=== PATIENT | female | born 1955 | race Caucasian/White ===

== ENCOUNTER 2021-02-14 09:28 | Day surgery (SDC) | payer MEDICARE ==
[2021-02-12 15:45] VITALS: BMI 31.6
[~2021-02-14 09:28] MED LIST: LACTATED RINGERS 1,000 ML IV SCH; LIDOCAINE 1% (10MG/ML) FOR IV START INTRADERMA PRN
[2021-02-14 10:28] VITALS: TEMP 98.1
[2021-02-14] MEDS ORDERED: PROPOFOL 10 MG/ML 20 ML VIAL IV ONE (11:32)
--- NOTE | 2021-02-14 11:52 | P.PCN ---
Date of Procedure: 02/14/21 Procedure(s) Performed: BRIEF HISTORY: Patient is a 65-year-old pleasant female scheduled for an elective colonoscopy as a part of screening for colorectal neoplasia. PROCEDURE PERFORMED: Colonoscopy snare polypectomy. PREOPERATIVE DIAGNOSIS: Screening for colon cancer. IV sedation per Anesthesia. PROCEDURE: After informed consent was obtained, the patient, was brought into the endoscopy unit. IV sedation was administered by Anesthesia under continuous monitoring. Digital rectal examination was normal. Initially the Olympus CF-160 flexible video colonoscope was then inserted in the rectum, gradually advanced into the cecum without any difficulty. Careful examination was performed as the scope was gradually being withdrawn. Ileocecal valve and the appendiceal orifice were visualized and appeared normal. Prep was excellent. The base of the cecum there was a 1.5 cm polyp removed by snare polypectomy. Mucosa of the cecum, ascending colon, transverse colon appeared normal. In the descending colon there was a 5 mm polyp removed by snare polyp rectum he. Rest of the, descending colon, sigmoid colon, and rectum appeared normal. Retroflexion was performed in the rectum and no lesions were seen. The patient tolerated the procedure well. IMPRESSION: 1.5 cm polyp in the base of the cecum status post polypectomy 5 mm descending colon polyp status post snare polypectomy RECOMMENDATIONS: Findings of this examination were discussed with the patient as well as a family. She was advised to follow with the biopsy results. If the biopsy shows an adenoma she can have a repeat colonoscopy in 3 years..
[2021-02-14 11:56] VITALS: RESP 16
[2021-02-14 12:13] VITALS: BP 161/88; PULSE 78
== END 2021-02-14 12:24 | disposition home or self-care (01) ==
LOC: ORWHC2ENDO 09:28
PROVIDERS: ATTEND Internal Medicine Gastroenterology
DX: Z12.11 Encounter for screening for malignant neoplasm of colon (principal); D12.0 Benign neoplasm of cecum; D12.4 Benign neoplasm of descending colon; I10 Essential (primary) hypertension; Z79.899 Other long term (current) drug therapy
CPT/HCPCS: 88305; 45385; J2704

== ENCOUNTER 2021-06-15 20:37 | Inpatient (IN) | payer MEDICARE ==
--- NOTE | 2021-06-15 23:07 | ED ---
Nausea/Vomiting/Diarrhea HPI - General Chief complaint: Nausea/Vomiting/Diarrhea Stated complaint: Fever, Vomiting Time Seen by Provider: 06/15/21 22:43 Source: patient Mode of arrival: ambulatory - History of Present Illness Initial comments: This patient is a 65-year-old woman who presents to be evaluated for nausea vomiting and abdominal pain. The patient had onset of nausea and vomiting proximally 5-6 days ago. She states she has not been tolerating much oral intake. She states that over the past couple of days she has also began having some diffuse abdominal pains. They're crampy and intermittent. She has not noted worsening or relieving factors. Patient also has been having some heartburn that is made worse by the vomiting. No anginal symptoms. MD complaint: nausea, vomiting, diarrhea, abdominal pain Onset/Timin -: days(s) Description of Vomiting: food contents Associated Abdominal Pain: Yes Location: diffuse Radiation: none Severity: mild Quality: cramping Consistency: constant Improves with: none Worsens with: none Associated Symptoms: nausea/vomiting - Related Data Home Medications Medication Instructions Recorded Confirmed Hydrochlorothiazide 12.5 mg PO DAILY 02/12/21 06/15/21 [hydroCHLOROthiazide] atenoloL [Tenormin] 50 mg PO DAILY 02/12/21 06/15/21 Acetaminophen Tab [Tylenol] 1,000 mg PO BID PRN 06/15/21 06/15/21 Acetaminophen Tab [Tylenol] 1,500 mg PO HS PRN 06/15/21 06/15/21 Bismuth Subsalicylate [Kaopectate] 524 mg PO BID PRN 06/15/21 06/15/21 Allergies Allergy/AdvReac Type Severity Reaction Status Date / Time No Known Allergies Allergy Verified 06/15/21 23:46 Review of Systems ROS Statement: Those systems with pertinent positive or pertinent negative responses have been documented in the HPI. ROS Other: All systems not noted in ROS Statement are negative. Constitutional: Denies: fever, chills, weakness Respiratory: Denies: cough, dyspnea Cardiovascular: Denies: chest pain, palpitations, edema Gastrointestinal: Reports: abdominal pain, nausea, vomiting, diarrhea. Denies: constipation, melena, hematochezia Genitourinary: Denies: dysuria, hematuria Musculoskeletal: Denies: back pain Skin: Denies: rash Neurological: Denies: headache, weakness Past Medical History Past Medical History: Hypertension Additional Past Medical History / Comment(s): FREQ DIARRHEA History of Any Multi-Drug Resistant Organisms: None Reported Additional Past Surgical History / Comment(s): NO PRIOR SURGERIES OR PROCEDURES Past Anesthesia/Blood Transfusion Reactions: No Reported Reaction Past Psychological History: No Psychological Hx Reported Smoking Status: Former smoker Past Alcohol Use History: None Reported Past Drug Use History: None Reported - Past Family History Father Family Medical History: Cancer General Exam General appearance: alert, in no apparent distress Head exam: Present: atraumatic, normocephalic Eye exam: Present: normal appearance. Absent: scleral icterus, conjunctival injection ENT exam: Present: normal oropharynx Neck exam: Present: normal inspection Respiratory exam: Present: normal lung sounds bilaterally. Absent: respiratory distress, wheezes, rales, rhonchi, stridor Cardiovascular Exam: Present: regular rate, normal rhythm, normal heart sounds. Absent: systolic murmur, diastolic murmur, rubs, gallop GI/Abdominal exam: Present: soft. Absent: distended, tenderness, guarding, rebound, rigid, mass, pulsatile mass, hernia Extremities exam: Present: normal inspection, normal capillary refill. Absent: pedal edema, calf tenderness Back exam: Present: normal inspection. Absent: CVA tenderness (R), CVA tenderness (L) Neurological exam: Present: alert Skin exam: Present: warm, dry, intact, normal color. Absent: rash Course Vital Signs 06/15/21 06/15/21 21:59 23:13 Temperature 98.1 F 98.0 F Pulse Rate 85 89 Respiratory 20 18 Rate Blood Pressure 135/77 144/82 O2 Sat by Pulse 95 93 L Oximetry Medical Decision Making - Lab Data Result diagrams: 06/15/21 23:29 06/15/21 23:29 Lab Results 06/15/21 06/15/21 06/15/21 Range/Units 22:19 23:29 23:29 WBC 16.9 H (3.8-10.6) k/uL RBC 4.88 (3.80-5.40) m/uL Hgb 15.2 (11.4-16.0) gm/dL Hct 45.1 (34.0-46.0) % MCV 92.6 (80.0-100.0) fL MCH 31.2 (25.0-35.0) pg MCHC 33.8 (31.0-37.0) g/dL RDW 13.5 (11.5-15.5) % Plt Count 294 (150-450) k/uL MPV 8.4 Sodium 120 L (137-145) mmol/L Potassium 3.5 (3.5-5.1) mmol/L Chloride 81 L (98-107) mmol/L Carbon Dioxide 22 (22-30) mmol/L Anion Gap 17 mmol/L BUN 68 H (7-17) mg/dL Creatinine 2.04 H (0.52-1.04) mg/dL Est GFR (CKD-EPI)AfAm 29 (>60 ml/min/1.73 sqM) Est GFR (CKD-EPI)NonAf 25 (>60 ml/min/1.73 sqM) Glucose 125 H (74-99) mg/dL Plasma Lactic Acid Terrence (0.7-2.0) mmol/L Calcium 7.0 L (8.4-10.2) mg/dL Total Bilirubin 0.9 (0.2-1.3) mg/dL AST 43 H (14-36) U/L ALT 35 H (4-34) U/L Alkaline Phosphatase 111 (38-126) U/L Troponin I (0.000-0.034) ng/mL Total Protein 6.3 (6.3-8.2) g/dL Albumin 3.2 L (3.5-5.0) g/dL Amylase 59 (30-110) U/L Lipase 117 (23-300) U/L Coronavirus (PCR) Not Detected (Not Detectd) 06/15/21 06/15/21 Range/Units 23:29 23:29 WBC (3.8-10.6) k/uL RBC (3.80-5.40) m/uL Hgb (11.4-16.0) gm/dL Hct (34.0-46.0) % MCV (80.0-100.0) fL MCH (25.0-35.0) pg MCHC (31.0-37.0) g/dL RDW (11.5-15.5) % Plt Count (150-450) k/uL MPV Sodium (137-145) mmol/L Potassium (3.5-5.1) mmol/L Chloride (98-107) mmol/L Carbon Dioxide (22-30) mmol/L Anion Gap mmol/L BUN (7-17) mg/dL Creatinine (0.52-1.04) mg/dL Est GFR (CKD-EPI)AfAm (>60 ml/min/1.73 sqM) Est GFR (CKD-EPI)NonAf (>60 ml/min/1.73 sqM) Glucose (74-99) mg/dL Plasma Lactic Acid Terrence 1.2 (0.7-2.0) mmol/L Calcium (8.4-10.2) mg/dL Total Bilirubin (0.2-1.3) mg/dL AST (14-36) U/L ALT (4-34) U/L Alkaline Phosphatase (38-126) U/L Troponin I <0.012 (0.000-0.034) ng/mL Total Protein (6.3-8.2) g/dL Albumin (3.5-5.0) g/dL Amylase (30-110) U/L Lipase (23-300) U/L Coronavirus (PCR) (Not Detectd) - EKG Data -: EKG Interpreted by [facility] EKG shows normal: sinus rhythm, intervals (Normal), 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
[2021-06-15] MEDS ORDERED: SODIUM CHLORIDE 0.9% 500 ML 500 ML IV STA (23:12)
[2021-06-15] MEDS ORDERED: ONDANSETRON 4 MG/2 ML VIAL IVP STA (23:12)
[2021-06-15] MEDS ORDERED: FAMOTIDINE 20 MG/2 ML VIAL IV STA (23:12)
[2021-06-16] LABS: HCT 45.1 % (34.0-46.0); HGB 15.2 gm/dL (11.4-16.0); MCH 31.2 pg (25.0-35.0); MCHC 33.8 g/dL (31.0-37.0); MCV 92.6 fL (80.0-100.0); Mean Platelet Volume 8.4; Platelet Count 294 k/uL (150-450); RBC 4.88 m/uL (3.80-5.40); RDW 13.5 % (11.5-15.5); WBC 16.9 k/uL (3.8-10.6)
[2021-06-16 00:13] LABS: Albumin 3.2 g/dL (3.5-5.0); Potassium 3.5 mmol/L (3.5-5.1); Total Bilirubin 0.9 mg/dL (0.2-1.3); Total Protein 6.3 g/dL (6.3-8.2)
[2021-06-16] MEDS ORDERED: MAG HYDROX/AL HYDROX/SIMETH 30 ML, HYOSCYAMINE ELIXIR 10 ML, LIDOCAINE VISCOUS 2% 10 ML PO STA ×3 (00:41)
[2021-06-16] MEDS ORDERED: MORPHINE SULFATE 4 MG/ML SYRINGE IV PRN (00:43)
[2021-06-16] MEDS ORDERED: NALOXONE 0.4 MG/ML 1 ML VIAL IV PRN (00:43)
[2021-06-16] MEDS ORDERED: ONDANSETRON 4 MG/2 ML VIAL IVP PRN (00:43)
[2021-06-16 00:59] LABS: Band Neutrophils % 23 %; Lymphocytes # (M) 1.35 k/uL (1.0-4.8); Monocytes # (M) 1.69 k/uL (0-1.0); Neutrophils % (M) 59 %; Nucleated Red Blood Cells 0 /100 WBC (0-0)
[2021-06-16 01:00] LABS: Total Cells Counted 200; Toxic Granulation Present
[2021-06-16] MEDS: SODIUM CHLORIDE 0.9% 1,000 ML IV SCH ×2 (01:15→08:34)
--- NOTE | 2021-06-16 01:25 | CT ---
EXAMINATION TYPE: CT abdomen pelvis wo con DATE OF EXAM: 06/16/2021 COMPARISON: None HISTORY: diffuse abdominal pain CT DLP: 1065.4 mGycm Automated exposure control for dose reduction was used. Images obtained from the diaphragm to the floor the pelvis without contrast. There is a mild to moderate right pleural effusion. There is infiltrate and atelectasis at both lung bases. Heart size is normal. There is no pericardial effusion. Liver is intact. Gallbladder is distended. Spleen is intact. There is extensive fat stranding around the pancreas. There is also fat stranding around the inferior aspect of the gastric antrum in the ret roperitoneum. There is wall thickening of the proximal duodenum. There is fluid in the left anterior pararenal space. There is no adrenal mass. Kidneys have normal size. There is no hydronephrosis. Ureters are not dilat ed. There is no retroperitoneal adenopathy. Bladder distends smoothly. There is small amount of low-d ensity free fluid in the pelvis. There is no evidence of a pelvic mass. Appendix not seen. No sign of thickened appendix. There is no free air. Lumbar vertebrae have fairly normal alignment. There is multilevel mild degener ative disc changes. Bony pelvis is intact. The hip joints are intact. Sacroiliac joints are intact. IMPRESSION: Extensive retroperitoneal fat stranding consistent with acute pancreatitis. There is duodenal wall th ickening that is probably secondary to the pancreatitis. No dilated ducts. Bilateral pleural effusions and basilar pulmonary infiltrates and atelectasis. Minimal free fluid in the pelvis.
[2021-06-16 03:06] LABS: Appearance,Urine Cloudy (Clear); Bacteria,Urine Rare /hpf; Bilirubin,Urine Negative (Negative); Blood,Urine Trace (Negative); Color,Urine Yellow; Glucose,Urine (UA) Negative (Negative); Ketones,Urine Trace (Negative); Leukocyte Esterase,Urine Negative (Negative); Mucus,Urine Rare /hpf; Nitrite,Urine Negative (Negative); PH, Urine 5.5 (5.0-8.0); Protein,Urine 1+ (Negative); RBC,Urine 3 /hpf (0-5); Specific Gravity,Urine 1.016 (1.001-1.035); Squamous Epithelial Cell,Urine 2 /hpf (0-4); Urobilinogen,Urine <2.0 mg/dL (<2.0); WBC,Urine 4 /hpf (0-5)
[2021-06-16] MEDS ORDERED: FAMOTIDINE 20 MG TAB PO SCH (09:00)
[2021-06-16] MEDS ORDERED: HYDROcodone/APAP 7.5-325MG 1 EACH TAB PO PRN (12:19)
[2021-06-16] MEDS ORDERED: ACETAMINOPHEN TAB 500 MG TAB PO PRN ×2 (12:19)
[2021-06-16 12:23] LABS: African American GFR (CKD) 30 (>60 ml/min/1.73 sqM); Anion Gap 13 mmol/L; Blood Urea Nitrogen 63 mg/dL (7-17); Calcium 6.8 mg/dL (8.4-10.2); Carbon Dioxide 20 mmol/L (22-30); Chloride 88 mmol/L (98-107); Glucose 145 mg/dL (74-99); Non-African American GFR(CKD) 26 (>60 ml/min/1.73 sqM); Potassium 3.2 mmol/L (3.5-5.1); Sodium 121 mmol/L (137-145)
--- NOTE | 2021-06-16 12:29 | P.HPIM ---
History of Present Illness Patient is a pleasant 65-year-old female came in with the moderate to severe bilateral lower abdominal pain which is pressure-like not sharp, along with nausea vomiting going on for about a week patient is found to be severely hypona tremic patient had flulike symptoms with this without any fever. Patient denied any recent antibiotic use patient is found to be severely hyponatremic with serum sodium 120 and patient is on hydrochlorothiazide for hypertension. Patient denied any lightheadedness. Patient presently doesn't have any fever. Patient is tested negative for Covid 19 via PCR. Having diarrhea and nausea still there but bit better. REVIEW OF SYSTEMS: CONSTITUTIONAL: No fever, no malaise, no fatigue. HEENT: No recent visual problems or hearing problems. Denied any sore throat. CARDIOVASCULAR: No chest pain, orthopnea, PND, no palpitations, no syncope. PULMONARY: No shortness of breath, no cough, no hemoptysis. GASTROINTESTINAL: As mentioned in HPI NEUROLOGICAL: No headaches, no weakness, no numbness. HEMATOLOGICAL: Denies any bleeding or petechiae. GENITOURINARY: Denies any burning micturition, frequency, or urgency. MUSCULOSKELETAL/RHEUMATOLOGICAL: Denies any joint pain, swelling, or any muscle pain. ENDOCRINE: Denies any polyuria or polydipsia. The rest of the 14-point review of systems is negative. PHYSICAL EXAMINATION: GENERAL: The patient is alert and oriented x3, not in any acute distress. Well developed, well nourished. HEENT: Pupils are round and equally reacting to light. EOMI. No scleral icterus. No conjunctival pallor. Normocephalic, atraumatic. No pharyngeal erythema. No thyromegaly. CARDIOVASCULAR: S1 and S2 present. No murmurs, rubs, or gallops. PULMONARY: Chest is clear to auscultation, no wheezing or crackles. ABDOMEN: Soft, nontender, nondistended, normoactive bowel sounds. No palpable organomegaly. MUSCULOSKELETAL: No joint swelling or deformity. EXTREMITIES: No cyanosis, clubbing, or pedal edema. NEUROLOGICAL: Gross neurological examination did not reveal any focal deficits. SKIN: No rashes. Assessment and plan -Possible viral gastroenteritis CT findings of retroperitoneal lymph adenopathy is probably secondary to enteritis rather than pericarditis patient's symptomatology is not consistent with pancreatitis pancreatic lipase is not elev ated either. -severe hyponatremia probably secondary to hydrocodone thiazide as well as hypervolemia from nausea vomiting diarrhea, continue with IV fluids. -Hypertension 5 leukocytosis: Secondary to assessment 1 DVT prophylaxis:lovenox Past Medical History Past Medical History: Hypertension Additional Past Medical History / Comment(s): FREQ DIARRHEA History of Any Multi-Drug Resistant Organisms: None Reported Additional Past Surgical History / Comment(s): NO PRIOR SURGERIES OR PROCEDURES Past Anesthesia/Blood Transfusion Reactions: No Reported Reaction Past Psychological History: No Psychological Hx Reported Smoking Status: Former smoker Past Alcohol Use History: None Reported Additional Past Alcohol Use History / Comment(s): QUIT SMOKING 30+ YEARS AGO Past Drug Use History: None Reported - Past Family History Father Family Medical History: Cancer Medications and Allergies Home Medications Medication Instructions Recorded Confirmed Type Hydrochlorothiazide 12.5 mg PO DAILY 02/12/21 06/15/21 History [hydroCHLOROthiazide] atenoloL [Tenormin] 50 mg PO DAILY 02/12/21 06/15/21 History Acetaminophen Tab [Tylenol] 1,000 mg PO BID PRN 06/15/21 06/15/21 History Acetaminophen Tab [Tylenol] 1,500 mg PO HS PRN 06/15/21 06/15/21 History Bismuth Subsalicylate [Kaopectate] 524 mg PO BID PRN 06/15/21 06/15/21 History Allergies Allergy/AdvReac Type Severity Reaction Status Date / Time No Known Allergies Allergy Verified 06/15/21 23:46 Physical Exam Vitals: Vital Signs Temp Pulse Pulse Resp BP BP Pulse Ox 06/16/21 08:20 83 16 06/16/21 08:00 68 120/67 06/16/21 05:07 98.1 F 83 16 123/78 93 L 06/16/21 01:56 98.3 F 82 18 147/82 93 L 06/16/21 01:18 86 18 135/74 94 L 06/15/21 23:13 98.0 F 89 18 144/82 93 L 06/15/21 21:59 98.1 F 85 20 135/77 95 Intake and Output 06/15/21 06/16/21 06/16/21 22:59 06:59 14:59 Other: # Voids 3 Weight 90.718 kg 90.718 kg Results CBC & Chem 7: 06/15/21 23:29 06/16/21 11:30 Labs: Abnormal Lab Results - Last 24 Hours (Table) 06/15/21 06/15/21 06/16/21 Range/Units 23:29 23:29 02:50 WBC 16.9 H (3.8-10.6) k/uL Neutrophils # (Manual) 13.80 H (1.3-7.7) k/uL Monocytes # (Manual) 1.69 H (0-1.0) k/uL Sodium 120 L (137-145) mmol/L Potassium (3.5-5.1) mmol/L Chloride 81 L (98-107) mmol/L Carbon Dioxide (22-30) mmol/L BUN 68 H (7-17) mg/dL Creatinine 2.04 H (0.52-1.04) mg/dL Glucose 125 H (74-99) mg/dL Calcium 7.0 L (8.4-10.2) mg/dL AST 43 H (14-36) U/L ALT 35 H (4-34) U/L Albumin 3.2 L (3.5-5.0) g/dL Urine Appearance Cloudy H (Clear) Urine Protein 1+ H (Negative) Urine Ketones Trace H (Negative) Urine Blood Trace H (Negative) Urine Bacteria Rare H (None) /hpf Urine Mucus Rare H (None) /hpf 06/16/21 Range/Units 11:30 WBC (3.8-10.6) k/uL Neutrophils # (Manual) (1.3-7.7) k/uL Monocytes # (Manual) (0-1.0) k/uL Sodium 121 L (137-145) mmol/L Potassium 3.2 L (3.5-5.1) mmol/L Chloride 88 L (98-107) mmol/L Carbon Dioxide 20 L (22-30) mmol/L BUN 63 H (7-17) mg/dL Creatinine 1.94 H (0.52-1.04) mg/dL Glucose 145 H (74-99) mg/dL Calcium 6.8 L (8.4-10.2) mg/dL AST (14-36) U/L ALT (4-34) U/L Albumin (3.5-5.0) g/dL Urine Appearance (Clear) Urine Protein (Negative) Urine Ketones (Negative) Urine Blood (Negative) Urine Bacteria (None) /hpf Urine Mucus (None) /hpf Thrombosis Risk Factor Assmnt - Choose All That Apply Any of the Below Risk Factors Present?: Yes Each Factor Represents 1 point: Obesity (BMI >25) Each Risk Factor Represents 2 Points: Age 61-74 years Thrombosis Risk Factor Assessment Total Risk Factor Score: 3 Thrombosis Risk Factor Assessment Level: Moderate Risk
--- NOTE | 2021-06-16 13:07 | CONS ---
CONSULTATION REASON FOR CONSULT: Acute kidney injury and hyponatremia. HISTORY OF PRESENT ILLNESS: Patient is a 65-year-old female who was admitted to the hospital with complaints of increased weakness, nausea, vomiting and diarrhea. Patient stated that she noted she had put out less urine as well. She denies any previous history of kidney diseases or low sodium. Patient was noted to have a sodium of 120. Serum creatinine was 2.0. No previous labs available for comparison. Patient has had abdominal pain as well. She states she is feeling slightly better. Coronavirus PCR is negative, blood pressure mostly around 120 to 140 mmHg. Patient denies use of any nonsteroidal anti-inflammatory agents prior to admission. She was maintained on hydrochlorothiazide. PAST MEDICAL HISTORY: Hypertension. PAST SURGICAL HISTORY: No major surgery. SOCIAL HISTORY: Patient is a former smoker, more than 30 years ago. No history of drug abuse. MEDICATIONS: Medications prior to admission: hydrochlorothiazide, Tenormin, Kaopectate. ALLERGIES: NONE. REVIEW OF SYSTEMS: As per HPI. Other systems negative. PHYSICAL EXAMINATION: Patient is comfortable, awake, alert, oriented x3, not in any acute distress. Blood pressure is 120/67, heart rate 68 per minute. She is afebrile. EXAMINATION OF THE HEART: S1 and S2. EXAMINATION OF LUNGS: Bilateral breath sounds are heard. Abdomen is soft. Mild tenderness noted. Examination of lower extremities shows no evidence of edema. CHIEF SUSTAINABILITY OFFICER EXAM: Grossly intact. LABS: Sodium 121, potassium 3.2, chloride 88, BUN 63, creatinine 1.9, hemoglobin 15.2. UA shows 1+ protein; no significant cells noted. Abdominal CT shows suggestion of acute pancreatitis with extensive retroperitoneal fat stranding. Bilateral pleural effusions are noted. Minimal fluid in the pelvis. No hydronephrosis noted on the kidneys. ASSESSMENT: 1. Acute kidney injury, prerenal. Continue with IV hydration. No previous labs available for comparison. Most likely component of ATN also present. UA appears to be quite benign except for 1+ protein. 2. Hyponatremia, mostly hypovolemic. Check urine osmolality. Continue with saline. Repeat sodium later on this evening. 3. Hypokalemia secondary to decreased intake. Will replace. 4. Abdominal pain, possibly diverticulitis; suggestion of pancreatitis on the CT scan, although lipase and amylase are not elevated. 5. History of hypertension. PLAN: Continue with IV fluids. Replace potassium. Check urine osmolality. Repeat sodium this evening and repeat labs again in a.m. Thank you for this consultation. Will continue to follow the patient with you during her hospitalization. ANNETTA / KELLYN: [id number] /
[2021-06-16] MEDS: PANTOPRAZOLE 40 MG/10 ML VIAL IVP SCH ×2 (15:09→19:41)
[2021-06-17] MEDS: SODIUM CHLORIDE 0.9% 1,000 ML IV SCH ×5 (01:42→20:43)
[2021-06-17] MEDS: atenoloL 50 MG TAB PO SCH (08:44)
[2021-06-17] MEDS: PANTOPRAZOLE 40 MG/10 ML VIAL IVP SCH ×2 (08:44→20:40)
[2021-06-17] MEDS ORDERED: ENOXAPARIN 40 MG/0.4 ML SYRINGE SQ SCH (09:00)
[2021-06-17 11:48] LABS: ALT 25 U/L (4-34); AST 34 U/L (14-36); African American GFR (CKD) 38 (>60 ml/min/1.73 sqM); Albumin 2.5 g/dL (3.5-5.0); Albumin/Globulin Ratio 0.9; Alkaline Phosphatase 101 U/L (38-126); Anion Gap 12 mmol/L; Blood Urea Nitrogen 52 mg/dL (7-17); Calcium 7.7 mg/dL (8.4-10.2); Carbon Dioxide 19 mmol/L (22-30); Chloride 95 mmol/L (98-107); Globulin 2.7 g/dL; Glucose 128 mg/dL (74-99); Magnesium 3.2 mg/dL (1.6-2.3); Non-African American GFR(CKD) 33 (>60 ml/min/1.73 sqM); Sodium 126 mmol/L (137-145); Total Bilirubin 0.8 mg/dL (0.2-1.3); Total Protein 5.2 g/dL (6.3-8.2)
[2021-06-17 11:59] LABS: HGB 12.6 gm/dL (11.4-16.0); MCH 31.2 pg (25.0-35.0); MCV 94.4 fL (80.0-100.0); Mean Platelet Volume 8.2; Platelet Count 278 k/uL (150-450); RBC 4.03 m/uL (3.80-5.40); RDW 13.7 % (11.5-15.5); WBC 15.4 k/uL (3.8-10.6)
[2021-06-17] MEDS ORDERED: LOPERAMIDE 2 MG CAP PO PRN (13:06)
[2021-06-17] MEDS ORDERED: LOPERAMIDE 2 MG CAP PO STA (13:06)
[2021-06-17 14:55] LABS: Band Neutrophils % 6 %; Lymphocytes # (M) 0.92 k/uL (1.0-4.8); Metamyelocytes # (M) 0.15 k/uL (0); Metamyelocytes % 1 %; Monocytes # (M) 1.54 k/uL (0-1.0); Myelocytes # (M) 0.15 k/uL (0); Myelocytes % 1 %; Neutrophils % (M) 77 %; Nucleated Red Blood Cells 0 /100 WBC (0-0); Total Cells Counted 200
[2021-06-17 14:59] LABS: Toxic Granulation Present
[2021-06-17] MEDS: CHOLESTYRAMINE (WITH SUGAR) 4 GM PACKET PO SCH ×2 (15:35→17:20)
[2021-06-17] MEDS ORDERED: Potassium Replacement Protocol 1 EACH MISC MISCELLANE PRN ×2 (16:06→20:11)
[2021-06-17] MEDS: POTASSIUM CHLORIDE ER 20 MEQ TAB.ER PO SCH ×4 (17:25→20:42)
--- NOTE | 2021-06-17 17:42 | PN ---
PROGRESS NOTE Patient is seen for followup for hyponatremia and acute kidney injury. The patient is maintained on IV fluids. Her renal function continues to improve. She states her diarrhea is persistent. The patient has not been eating much. She is maintained on IV fluids. CT scan of the abdomen did not show any obvious colitis. C diff toxin is negative. PHYSICAL EXAMINATION: On examination today, blood pressure 120/73, heart rate 96 per minute. Patient is afebrile. Examination of the heart S1, S2. Examination of the lungs, bilateral breath sounds are heard. Abdomen is soft, nontender. Examination of lower extremities shows no evidence of edema. BUNDLE COLLECTOR exam grossly intact. LAB: Show sodium 126, potassium 3.0, chloride 95, CO2 is 19, BUN 52, creatinine 1.6, hemoglobin 12.6 g/dL. ASSESSMENT: 1. Hypovolemic hyponatremia, currently improving with normal saline. 2. Hypokalemia associated with decreased oral intake and diarrhea and GI fluid loss, will replace. 3. Acute kidney injury, prerenal, currently improving with IV hydration. 4. Diarrhea/gastroenteritis. C diff toxin negative. Maintained on Imodium. PLAN: Continue with IV fluids repeat labs in a.m. Avoid nephrotoxic medications. MMODL / IJN: [id number] /
[2021-06-18] MEDS: SODIUM CHLORIDE 0.9% 1,000 ML IV SCH ×3 (08:59→20:40)
[2021-06-18] MEDS: atenoloL 50 MG TAB PO SCH (09:00)
[2021-06-18] MEDS: ENOXAPARIN 30 MG/0.3 ML SYRINGE SQ SCH (09:00)
[2021-06-18] MEDS: PANTOPRAZOLE 40 MG/10 ML VIAL IVP SCH (09:00)
[2021-06-18] MEDS: CHOLESTYRAMINE (WITH SUGAR) 4 GM PACKET PO SCH ×3 (09:00→16:52)
--- NOTE | 2021-06-18 09:53 | P.PN ---
Subjective Progress Note Date: 06/17/21 Patient is a pleasant 65-year-old female came in with the moderate to severe bilateral lower abdominal pain which is pressure-like not sharp, along with nausea vomiting going on for about a week patient is found to be severely hyponatremic patient had flulike symptoms with this without any fever. Patient denied any recent antibiotic use patient is found to be severely hyponatremic with serum sodium 120 and patient is on hydrochlorothiazide for hypertension. Patient denied any lightheadedness. Patient presently doesn't have any fever. Patient is tested negative for Covid 19 via PCR. Having diarrhea and nausea still there but bit better. 06/17/2021 She is seen in follow-up this morning and is closely monitored with nephrology for hyponatremia and acute kidney injury and maintained on IV fluids patient continues with diarrhea and ordered C. diff testing which was negative and will add Imodium and Questran and monitor for improvement in sodium along with diarrhea. Encouraged increased activity along with oral intake. Sodium today slightly improved at 126, potassium 3.0 and will replace per protocol, creatinine is 1.6 and will continue with IV fluids and repeat labs. Review of systems: Constitutional: No reports of fatigue, fever, or chills Cardiovascular: No reports of chest pain or palpitations Respiratory: No reports of shortness of breath or cough GI: No reports of nausea, vomiting, or diarrhea : No reports of dysuria or retention Neurovascular: No reports of weakness or numbness All medications have been reviewed Active Medications Acetaminophen (Acetaminophen Tab 500 Mg Tab) 1,000 mg PO BID PRN PRN Reason: Pain Acetaminophen (Acetaminophen Tab 500 Mg Tab) 1,000 mg PO HS PRN PRN Reason: Pain Hydrocodone Bitart/Acetaminophen (Hydrocodone/Apap 7.5-325mg 1 Each Tab) 1 each PO Q6HR PRN PRN Reason: Moderate Pain Atenolol (Atenolol 50 Mg Tab) 50 mg PO DAILY [facility] Last Admin: 06/18/21 09:00 Dose: 50 mg Documented by: Cholestyramine Resin (Cholestyramine (With Sugar) 4 Gm Packet) 4 gm PO TID BETWEEN MEALS [facility] Last Admin: 06/18/21 09:00 Dose: 4 gm Documented by: Enoxaparin Sodium (Enoxaparin 30 Mg/0.3 Ml Syringe) 30 mg SQ DAILY [facility] Last Admin: 06/18/21 09:00 Dose: 30 mg Documented by: Sodium Chloride (Saline 0.9%) 1,000 mls @ 130 mls/hr IV .Q7H42M [facility] Last Admin: 06/18/21 08:59 Dose: 130 mls/hr Documented by: Loperamide HCl (Loperamide 2 Mg Cap) 2 mg PO QID PRN PRN Reason: Diarrhea Last Admin: 06/17/21 20:40 Dose: 2 mg Documented by: Miscellaneous Information (Potassium Replacement Protocol 1 Each Misc) 1 each MISCELLANE DAILY PRN; Protocol PRN Reason: Per Protocol Miscellaneous Information (Potassium Replacement Protocol 1 Each Misc) 1 each MISCELLANE DAILY PRN; Protocol PRN Reason: Per Protocol Naloxone HCl (Naloxone 0.4 Mg/Ml 1 Ml Vial) 0.2 mg IV Q2M PRN PRN Reason: Opioid Reversal Ondansetron HCl (Ondansetron 4 Mg/2 Ml Vial) 4 mg IVP Q8HR PRN PRN Reason: Nausea And Vomiting Pantoprazole Sodium (Pantoprazole 40 Mg/10 Ml Vial) 40 mg IVP BID [facility] Last Admin: 06/18/21 09:00 Dose: 40 mg Documented by: PHYSICAL EXAMINATION: GENERAL: The patient is alert and oriented x3, not in any acute distress. Well developed, well nourished. HEENT: Pupils are round and equally reacting to light. EOMI. No scleral icterus. No conjunctival pallor. Normocephalic, atraumatic. No pharyngeal erythema. No thyromegaly. CARDIOVASCULAR: S1 and S2 present. No murmurs, rubs, or gallops. PULMONARY: Chest is clear to auscultation, no wheezing or crackles. ABDOMEN: Soft, nontender, nondistended, normoactive bowel sounds. No palpable organomegaly. MUSCULOSKELETAL: No joint swelling or deformity. EXTREMITIES: No cyanosis, clubbing, or pedal edema. NEUROLOGICAL: Gross neurological examination did not reveal any focal deficits. SKIN: No rashes. Assessment and plan: -Possible viral gastroenteritis CT findings of retroperitoneal lymph adenopathy is probably secondary to enteritis rather than pericarditis patient's symptomatology is not consistent with pancreatitis pancreatic lipase is not elevated either. -severe hyponatremia probably secondary to diuretic use as well as hypovolemia from nausea vomiting diarrhea, continue with IV fluids. -Hypertension -Hypokalemia, potassium 3.0 will replace per protocol and repeat labs -leukocytosis: Secondary to assessment 1 -DVT prophylaxis:lovenox Objective - Vital Signs Vital signs: Vital Signs Temp 97.7 F 06/17/21 05:00 Pulse 96 06/17/21 08:48 Resp 20 06/17/21 05:00 BP 120/73 06/17/21 08:48 Pulse Ox 94 L 06/17/21 05:00 Intake & Output 06/16/21 06/17/21 06/17/21 18:59 06:59 18:59 Intake Total 240 100 Output Total 5 Balance 240 95 Intake: Oral 240 100 Output: Urine/Stool Mix 5 Other: # Voids 3 # Bowel Movements 2 - Labs CBC & Chem 7: 06/17/21 10:33 06/17/21 19:46 Labs: Abnormal Lab Results - Last 24 Hours (Table) 06/16/21 06/16/21 06/16/21 Range/Units 11:30 11:30 16:34 Sodium 121 L 122 L (137-145) mmol/L Potassium 3.2 L (3.5-5.1) mmol/L Chloride 88 L (98-107) mmol/L Carbon Dioxide 20 L (22-30) mmol/L BUN 63 H (7-17) mg/dL Creatinine 1.94 H (0.52-1.04) mg/dL Glucose 145 H (74-99) mg/dL Calcium 6.8 L (8.4-10.2) mg/dL Magnesium 2.7 H (1.6-2.3) mg/dL
[2021-06-18 10:11] LABS: African American GFR (CKD) 49.2 (60.0-200.0); Albumin 2.7 g/dL (3.8-4.9); Albumin/Globulin Ratio 1.17 (1.60-3.17); Anion Gap 14.5 mmol/L (10.00-18.00); BUN/Creat Ratio 30.23 Ratio (12.00-20.00); Blood Urea Nitrogen 39.3 mg/dL (9.0-27.0); Calcium 8.1 mg/dL (8.7-10.3); Carbon Dioxide 18.5 mmol/L (20.0-27.5); Globulin 2.3 g/dL (1.6-3.3); Non-African American GFR(CKD) 42.4 (60.0-200.0); Potassium 3.5 mmol/L (3.5-5.5); Total Bilirubin 0.6 mg/dL (0.30-1.20)
[2021-06-18] MEDS ORDERED: POTASSIUM CHLORIDE ER 20 MEQ TAB.ER PO STA (16:24)
[2021-06-18] MEDS: PANTOPRAZOLE 40 MG TABLET PO SCH (16:48)
--- NOTE | 2021-06-18 18:01 | PN ---
PROGRESS NOTE Patient is seen for followup for hyponatremia and acute kidney injury. Her renal function has improved as well as the sodium is up to 132 today. The patient states she is feeling well. Denies any significant complaints. She was admitted with significant diarrhea and volume depletion. PHYSICAL EXAMINATION: On examination today, blood pressure 115/70, heart rate 83 per minute, she is afebrile. Examination of the heart S1, S2. Examination of the lungs, bilateral breath sounds are heard. Abdomen is soft, nontender. Examination lower extremities shows trace edema bilaterally. GARNETTER exam grossly intact. LAB: Show sodium 132, potassium 3.5, CO2 is 18.5, BUN 39.3, serum creatinine 1.3. ASSESSMENT: 1. Acute kidney injury, prerenal, associated with volume depletion, currently improved significantly. 2. Hypokalemia associated with GI fluid loss and decreased oral intake status post replacement. Will replace again. 3. Mild metabolic acidosis associated with GI fluid loss and acute kidney injury as well as IV fluids. Expect further improvement as renal function continues to improve. 4. Volume depletion, currently improved. 5. Diarrhea and abdominal pain, now resolved. C diff toxin was negative. 6. Hyponatremia which is hypovolemic, improved with saline administration. PLAN: Replace potassium. Continue with IV fluids. Patient could be discharged from nephrology standpoint and repeat labs as outpatient in 1-2 days. She is advised to maintain good oral intake, particularly fluids. MMODL / IJN: [id number] /
--- NOTE | 2021-06-18 23:18 | P.PN ---
Subjective Progress Note Date: 06/18/21 Patient is a pleasant 65-year-old female came in with the moderate to severe bilateral lower abdominal pain which is pressure-like not sharp, along with nausea vomiting going on for about a week patient is found to be severely hyponatremic patient had flulike symptoms with this without any fever. Patient denied any recent antibiotic use patient is found to be severely hyponatremic with serum sodium 120 and patient is on hydrochlorothiazide for hypertension. Patient denied any lightheadedness. Patient presently doesn't have any fever. Patient is tested negative for Covid 19 via PCR. Having diarrhea and nausea still there but bit better. 06/17/2021 She is seen in follow-up this morning and is closely monitored with nephrology for hyponatremia and acute kidney injury and maintained on IV fluids patient continues with diarrhea and ordered C. diff testing which was negative and will add Imodium and Questran and monitor for improvement in sodium along with diarrhea. Encouraged increased activity along with oral intake. Sodium today slightly improved at 126, potassium 3.0 and will replace per protocol, creatinine is 1.6 and will continue with IV fluids and repeat labs. 06/18/2021 Patient is seen in follow up today and states that her diarrhea has subsided. Patient being followed by nephrology and sodium and potassium improved as well. Patient states she is having difficulty and pain with swallowing in the esophagus that has been ongoing over the last few months and is having extreme discomfort today even with water. Will consult general surgery for evaluation. labs: sodium is 132, potassium is 3.5, creatinine is 1.3 Review of systems: Constitutional: No reports of fatigue, fever, or chills Cardiovascular: No reports of chest pain or palpitations Respiratory: No reports of shortness of breath or cough GI: No reports of nausea, vomiting, or diarrhea, reports pain with swallowing : No reports of dysuria or retention Neurovascular: No reports of weakness or numbness All medications have been reviewed Active Medications Acetaminophen (Acetaminophen Tab 500 Mg Tab) 1,000 mg PO BID PRN PRN Reason: Pain Acetaminophen (Acetaminophen Tab 500 Mg Tab) 1,000 mg PO HS PRN PRN Reason: Pain Hydrocodone Bitart/Acetaminophen (Hydrocodone/Apap 7.5-325mg 1 Each Tab) 1 each PO Q6HR PRN PRN Reason: Moderate Pain Atenolol (Atenolol 50 Mg Tab) 50 mg PO DAILY [facility] Last Admin: 06/18/21 09:00 Dose: 50 mg Documented by: Cholestyramine Resin (Cholestyramine (With Sugar) 4 Gm Packet) 4 gm PO TID BETWEEN MEALS [facility] Last Admin: 06/18/21 16:52 Dose: Not Given Documented by: Enoxaparin Sodium (Enoxaparin 30 Mg/0.3 Ml Syringe) 30 mg SQ DAILY [facility] Last Admin: 06/18/21 09:00 Dose: 30 mg Documented by: Sodium Chloride (Saline 0.9%) 1,000 mls @ 130 mls/hr IV .Q7H42M [facility] Last Admin: 06/18/21 20:40 Dose: 130 mls/hr Documented by: Loperamide HCl (Loperamide 2 Mg Cap) 2 mg PO QID PRN PRN Reason: Diarrhea Last Admin: 06/17/21 20:40 Dose: 2 mg Documented by: Miscellaneous Information (Potassium Replacement Protocol 1 Each Misc) 1 each MISCELLANE DAILY PRN; Protocol PRN Reason: Per Protocol Miscellaneous Information (Potassium Replacement Protocol 1 Each Misc) 1 each MISCELLANE DAILY PRN; Protocol PRN Reason: Per Protocol Naloxone HCl (Naloxone 0.4 Mg/Ml 1 Ml Vial) 0.2 mg IV Q2M PRN PRN Reason: Opioid Reversal Ondansetron HCl (Ondansetron 4 Mg/2 Ml Vial) 4 mg IVP Q8HR PRN PRN Reason: Nausea And Vomiting Pantoprazole Sodium (Pantoprazole 40 Mg Tablet) 40 mg PO AC-BID [facility] Last Admin: 06/18/21 16:48 Dose: 40 mg Documented by: PHYSICAL EXAMINATION: GENERAL: The patient is alert and oriented x3, not in any acute distress. Well developed, well nourished. HEENT: Pupils are round and equally reacting to light. EOMI. No scleral icterus. No conjunctival pallor. Normocephalic, atraumatic. No pharyngeal erythema. No thyromegaly. CARDIOVASCULAR: S1 and S2 present. No murmurs, rubs, or gallops. PULMONARY: Chest is clear to auscultation, no wheezing or crackles. ABDOMEN: Soft, nontender, nondistended, normoactive bowel sounds. No palpable organomegaly. MUSCULOSKELETAL: No joint swelling or deformity. EXTREMITIES: No cyanosis, clubbing, or pedal edema. NEUROLOGICAL: Gross neurological examination did not reveal any focal deficits. SKIN: No rashes. Assessment and plan: -Possible viral gastroenteritis CT findings of retroperitoneal lymph adenopathy is probably secondary to enteritis rather than pericarditis patient's symptomatology is not consistent with pancreatitis pancreatic lipase is not elevated either. -severe hyponatremia probably secondary to diuretic use as well as hypovolemia from nausea vomiting diarrhea, continued with IV fluids. improved and nephrology following recommending close outpatient monitoring and increased oral intake -Hypertension -Hypokalemia, potassium 3.5 -leukocytosis: Secondary to assessment 1 -DVT prophylaxis:lovenox Plan: REcommend to continue with current medications and management. Nephrology following and electrolytes improved. General surgery consulted for pain with swallowing and is pending at this time. Encourage oral intake, continue with protonix and will await surgical evaluation. Possible discharge in 24 hours. Objective - Vital Signs Vital signs: Vital Signs Temp 98.1 F 06/18/21 11:20 Pulse 83 06/18/21 11:20 Resp 18 06/18/21 11:20 BP 115/70 06/18/21 11:20 Pulse Ox 93 L 06/18/21 11:20 Intake & Output 06/17/21 06/18/21 06/18/21 18:59 06:59 18:59 Intake Total 1560 540 Balance 1560 540 Intake: Intake, IV Titration 1560 Amount Sodium Chloride 0.9% 1, 1560 000 ml @ 130 mls/hr IV . Q7H42M [facility] Rx#:[id number] Oral 540 Other: Voiding Method Toilet Toilet # Voids 6 2 # Bowel Movements 8 - Labs CBC & Chem 7: 06/17/21 10:33 06/18/21 05:58 Labs: Abnormal Lab Results - Last 24 Hours (Table) 06/17/21 06/17/21 06/18/21 Range/Units 10:33 19:46 05:58 Neutrophils # (Manual) 12.70 H (1.3-7.7) k/uL Lymphocytes # (Manual) 0.92 L (1.0-4.8) k/uL Monocytes # (Manual) 1.54 H (0-1.0) k/uL Metamyelocytes # (Man) 0.15 H (0) k/uL Myelocytes # (Manual) 0.15 H (0) k/uL Sodium 132 L (135-145) mmol/L Potassium 3.0 L (3.5-5.1) mmol/L Carbon Dioxide 18.5 L (20.0-27.5) mmol/L BUN 39.3 H (9.0-27.0) mg/dL Est GFR (CKD-EPI)AfAm 49.2 L (60.0-200.0) Est GFR (CKD-EPI)NonAf 42.4 L (60.0-200.0) BUN/Creatinine Ratio 30.23 H (12.00-20.00) Ratio Glucose 119 H (70-110) mg/dL Calcium 8.1 L (8.7-10.3) mg/dL Total Protein 5.0 L (6.2-8.2) g/dL Albumin 2.7 L (3.8-4.9) g/dL Albumin/Globulin Ratio 1.17 L (1.60-3.17) g/dL
[2021-06-19] MEDS: SODIUM CHLORIDE 0.9% 1,000 ML IV SCH ×3 (06:18→21:13)
[2021-06-19] MEDS: PANTOPRAZOLE 40 MG TABLET PO SCH ×2 (09:14→17:03)
[2021-06-19] MEDS: atenoloL 50 MG TAB PO SCH (09:14)
[2021-06-19] MEDS: CHOLESTYRAMINE (WITH SUGAR) 4 GM PACKET PO SCH ×2 (09:14→13:40)
[2021-06-19] MEDS: ENOXAPARIN 30 MG/0.3 ML SYRINGE SQ SCH (09:14)
[2021-06-19 10:33] LABS: Basophils % (A) 0 %; Eosinophils # (A) 0.1 k/uL (0-0.7); Eosinophils % (A) 1 %; HCT 37.9 % (34.0-46.0); Lymphocytes # (A) 0.6 k/uL (1.0-4.8); Lymphocytes % (A) 3 %; MCH 30.5 pg (25.0-35.0); MCHC 31.7 g/dL (31.0-37.0); MCV 96.3 fL (80.0-100.0); Mean Platelet Volume 7.9; Monocytes # (A) 0.9 k/uL (0-1.0); Monocytes % (A) 5 %; Neutrophils # (A) 17.3 k/uL (1.3-7.7); Neutrophils % (A) 90 %; Platelet Count 361 k/uL (150-450); RBC 3.93 m/uL (3.80-5.40); WBC 19.1 k/uL (3.8-10.6)
[2021-06-19 10:47] LABS: African American GFR (CKD) 57 (>60 ml/min/1.73 sqM); Anion Gap 11 mmol/L; Blood Urea Nitrogen 29 mg/dL (7-17); Calcium 8.1 mg/dL (8.4-10.2); Carbon Dioxide 19 mmol/L (22-30); Chloride 105 mmol/L (98-107); Glucose 126 mg/dL (74-99); Non-African American GFR(CKD) 49 (>60 ml/min/1.73 sqM); Sodium 135 mmol/L (137-145)
--- NOTE | 2021-06-19 13:10 | P.GSCN ---
History of Present Illness Consult date: 06/19/21 Reason for Consult: dysphagia History of present illness: this a 66-year-old female who has been in the hospital for multiple medical problems. Patient has complaints of dysphagia. She states she has some burning and trouble swallowing. Past Medical History Past Medical History: Hypertension Additional Past Medical History / Comment(s): FREQ DIARRHEA History of Any Multi-Drug Resistant Organisms: None Reported Additional Past Surgical History / Comment(s): NO PRIOR SURGERIES OR PROCEDURES Past Anesthesia/Blood Transfusion Reactions: No Reported Reaction Past Psychological History: No Psychological Hx Reported Smoking Status: Former smoker Past Alcohol Use History: None Reported Additional Past Alcohol Use History / Comment(s): QUIT SMOKING 30+ YEARS AGO Past Drug Use History: None Reported - Past Family History Father Family Medical History: Cancer Medications and Allergies Home Medications Medication Instructions Recorded Confirmed Type Hydrochlorothiazide 12.5 mg PO DAILY 02/12/21 06/15/21 History [hydroCHLOROthiazide] atenoloL [Tenormin] 50 mg PO DAILY 02/12/21 06/15/21 History Acetaminophen Tab [Tylenol] 1,000 mg PO BID PRN 06/15/21 06/15/21 History Acetaminophen Tab [Tylenol] 1,500 mg PO HS PRN 06/15/21 06/15/21 History Bismuth Subsalicylate [Kaopectate] 524 mg PO BID PRN 06/15/21 06/15/21 History Allergies Allergy/AdvReac Type Severity Reaction Status Date / Time No Known Allergies Allergy Verified 06/15/21 23:46 Surgical - Exam Vital Signs Temp Pulse Resp BP Pulse Ox 98.1 F 85 20 135/77 95 06/15/21 21:59 06/15/21 21:59 06/15/21 21:59 06/15/21 21:59 06/15/21 21:59 - General well developed, well nourished, no distress - Eyes PERRL - ENT normal pinna - Neck no masses - Respiratory normal expansion - Cardiovascular Rhythm: regular - Abdomen Abdomen: soft, non tender Results - Labs 06/19/21 09:49 06/19/21 09:49 Abnormal Lab Results - Last 24 Hours (Table) 06/19/21 06/19/21 Range/Units 09:49 09:49 WBC 19.1 H (3.8-10.6) k/uL Neutrophils # 17.3 H (1.3-7.7) k/uL Lymphocytes # 0.6 L (1.0-4.8) k/uL Sodium 135 L (137-145) mmol/L Carbon Dioxide 19 L (22-30) mmol/L BUN 29 H (7-17) mg/dL Creatinine 1.15 H (0.52-1.04) mg/dL Glucose 126 H (74-99) mg/dL Calcium 8.1 L (8.4-10.2) mg/dL Diabetes panel 06/19/21 Range/Units 09:49 Sodium 135 L (137-145) mmol/L Potassium 4.0 (3.5-5.1) mmol/L Chloride 105 (98-107) mmol/L Carbon Dioxide 19 L (22-30) mmol/L BUN 29 H (7-17) mg/dL Creatinine 1.15 H (0.52-1.04) mg/dL Glucose 126 H (74-99) mg/dL Calcium 8.1 L (8.4-10.2) mg/dL Calcium panel 06/19/21 Range/Units 09:49 Calcium 8.1 L (8.4-10.2) mg/dL Pituitary panel 06/19/21 Range/Units 09:49 Sodium 135 L (137-145) mmol/L Potassium 4.0 (3.5-5.1) mmol/L Chloride 105 (98-107) mmol/L Carbon Dioxide 19 L (22-30) mmol/L BUN 29 H (7-17) mg/dL Creatinine 1.15 H (0.52-1.04) mg/dL Glucose 126 H (74-99) mg/dL Calcium 8.1 L (8.4-10.2) mg/dL Adrenal panel 06/19/21 Range/Units 09:49 Sodium 135 L (137-145) mmol/L Potassium 4.0 (3.5-5.1) mmol/L Chloride 105 (98-107) mmol/L Carbon Dioxide 19 L (22-30) mmol/L BUN 29 H (7-17) mg/dL Creatinine 1.15 H (0.52-1.04) mg/dL Glucose 126 H (74-99) mg/dL Calcium 8.1 L (8.4-10.2) mg/dL Assessment and Plan Assessment: Dysphagia. Patient will undergo esophagram. She may require EGD.
--- NOTE | 2021-06-19 16:04 | FL ---
EXAMINATION TYPE: FL UGI w esophagus DATE OF EXAM: 06/19/2021 COMPARISON: CT 06/16/2021 HISTORY: 66-year-old female dysphasia, pain and sensation of food sticking in the throat. TECHNIQUE: A double contrast UGI and esophagram study is performed. A total of 3 minutes 13 seconds of fluoroscopic time was utilized during procedure and 48 images obtained. FINDINGS: The hypopharyngeal anatomy is preserved. There may be a tiny early Zenker's diverticulum. This interm ittently fills and spontaneously empties. Otherwise, the hypopharyngeal anatomy is maintained. There is normal course and caliber of the thoracic esophagus. No mucosal abnormality or suspicious fi lling defect is seen. No ulceration or stricture is identified. There is mild to moderate dysmotility with blunted secondary stripping waves and a prolonged presence of contrast within the lower thoracic esophagus. Some intraesophageal reflux is encountered along wi th mild to moderate tertiary peristaltic waves. There is a small sliding hiatal hernia. An episode of mild spontaneous gastroesophageal reflux is vis ualized. The stomach shows normal distensibility and mucosal folds. No evidence of any mass or ulcer disease. No slightly limited coating of the anterior wall due to patient's condition. The second portion the duodenum is initially narrowed and irregular likely secondary to adjacent infl ammation from the pancreas. Gradually, the duodenum distends to a normal appearance. IMPRESSION: 1. Incidental tiny early Zenker's diverticulum which intermittently fills and spontaneously empties. 2. Small sliding hiatal hernia with an episode of mild spontaneous gastroesophageal reflux. 3. There is mild to moderate esophageal dysmotility but no ulcer, stricture, or other discrete abnorm ality seen. 4. Some initial narrowing and irregularity of the second portion of the duodenum likely due to inflam mation from the adjacent pancreas. Gradually, the duodenum distends to a normal appearance.
--- NOTE | 2021-06-19 22:38 | P.PN ---
Subjective Progress Note Date: 06/19/21 Patient is a pleasant 65-year-old female came in with the moderate to severe bilateral lower abdominal pain which is pressure-like not sharp, along with nausea vomiting going on for about a week patient is found to be severely hyponatremic patient had flulike symptoms with this without any fever. Patient denied any recent antibiotic use patient is found to be severely hyponatremic with serum sodium 120 and patient is on hydrochlorothiazide for hypertension. Patient denied any lightheadedness. Patient presently doesn't have any fever. Patient is tested negative for Covid 19 via PCR. Having diarrhea and nausea still there but bit better. 06/17/2021 She is seen in follow-up this morning and is closely monitored with nephrology for hyponatremia and acute kidney injury and maintained on IV fluids patient continues with diarrhea and ordered C. diff testing which was negative and will add Imodium and Questran and monitor for improvement in sodium along with diarrhea. Encouraged increased activity along with oral intake. Sodium today slightly improved at 126, potassium 3.0 and will replace per protocol, creatinine is 1.6 and will continue with IV fluids and repeat labs. 06/18/2021 Patient is seen in follow up today and states that her diarrhea has subsided. Patient being followed by nephrology and sodium and potassium improved as well. Patient states she is having difficulty and pain with swallowing in the esophagus that has been ongoing over the last few months and is having extreme discomfort today even with water. Will consult general surgery for evaluation. 06/19/2021 Patient is evaluated today and continues with pain and discomfort while swallowing. Electrolytes improving and continued on IV hydration. Nephrology following and general surgery evaluated the patient and will monitor and possible endoscopy if difficulty in swallowing and discomfort continues. Upper GI barium swallow ordered. Patient denies any chest pain or palpitations. Patient is afebrile. labs: sodium is 135, potassium is 4.0, creatinine is 1.15, wbc is 19.1, hgb is 12.0, plt are 361 Review of systems: Constitutional: No reports of fatigue, fever, or chills Cardiovascular: No reports of chest pain or palpitations Respiratory: No reports of shortness of breath or cough GI: No reports of nausea, vomiting, or diarrhea, reports pain with swallowing : No reports of dysuria or retention Neurovascular: No reports of weakness or numbness All medications have been reviewed Active Medications Acetaminophen (Acetaminophen Tab 500 Mg Tab) 1,000 mg PO BID PRN PRN Reason: Pain Acetaminophen (Acetaminophen Tab 500 Mg Tab) 1,000 mg PO HS PRN PRN Reason: Pain Hydrocodone Bitart/Acetaminophen (Hydrocodone/Apap 7.5-325mg 1 Each Tab) 1 each PO Q6HR PRN PRN Reason: Moderate Pain Atenolol (Atenolol 50 Mg Tab) 50 mg PO DAILY [facility] Last Admin: 06/19/21 09:14 Dose: 50 mg Documented by: Enoxaparin Sodium (Enoxaparin 30 Mg/0.3 Ml Syringe) 30 mg SQ DAILY [facility] Last Admin: 06/19/21 09:14 Dose: 30 mg Documented by: Sodium Chloride (Saline 0.9%) 1,000 mls @ 130 mls/hr IV .[id number] [facility] Last Admin: 06/19/21 21:13 Dose: 130 mls/hr Documented by: Loperamide HCl (Loperamide 2 Mg Cap) 2 mg PO QID PRN PRN Reason: Diarrhea Last Admin: 06/17/21 20:40 Dose: 2 mg Documented by: Miscellaneous Information (Potassium Replacement Protocol 1 Each Misc) 1 each MISCELLANE DAILY PRN; Protocol PRN Reason: Per Protocol Miscellaneous Information (Potassium Replacement Protocol 1 Each Misc) 1 each MISCELLANE DAILY PRN; Protocol PRN Reason: Per Protocol Naloxone HCl (Naloxone 0.4 Mg/Ml 1 Ml Vial) 0.2 mg IV Q2M PRN PRN Reason: Opioid Reversal Ondansetron HCl (Ondansetron 4 Mg/2 Ml Vial) 4 mg IVP Q8HR PRN PRN Reason: Nausea And Vomiting Pantoprazole Sodium (Pantoprazole 40 Mg Tablet) 40 mg PO AC-BID [facility] Last Admin: 06/19/21 17:03 Dose: 40 mg Documented by: PHYSICAL EXAMINATION: GENERAL: The patient is alert and oriented x3, not in any acute distress. Well developed, well nourished. HEENT: Pupils are round and equally reacting to light. EOMI. No scleral icterus. No conjunctival pallor. Normocephalic, atraumatic. No pharyngeal erythema. No thyromegaly. CARDIOVASCULAR: S1 and S2 present. No murmurs, rubs, or gallops. PULMONARY: Chest is clear to auscultation, no wheezing or crackles. ABDOMEN: Soft, nontender, nondistended, normoactive bowel sounds. No palpable organomegaly. MUSCULOSKELETAL: No joint swelling or deformity. EXTREMITIES: No cyanosis, clubbing, or pedal edema. NEUROLOGICAL: Gross neurological examination did not reveal any focal deficits. SKIN: No rashes. Assessment and plan: -Possible viral gastroenteritis CT findings of retroperitoneal lymphadenopathy is probably secondary to enteritis rather than pericarditis patient's symptomatology is not consistent with pancreatitis pancreatic lipase is not e levated either. improved -severe hyponatremia probably secondary to diuretic use as well as hypovolemia from nausea vomiting diarrhea, continued with IV fluids. improved and nephrology following recommending close outpatient monitoring and increased oral intake -Hypertension -dysphagia -Hypokalemia, potassium 3.5 -leukocytosis: Secondary to assessment 1 -DVT prophylaxis:lovenox -full code Plan: Recommend to continue with current medications and management. Nephrology following and electrolytes improved. General surgery following for pain with swallowing and ordered esophagram which showed small sliding hernia with an episode of gastroesophageal reflux, mild to mod esophageal dysmotility with no evidence of ulcer, stricture, or other abnormality, some initial narrowing and irregularity of the second portion of the duodenum which distends to a normal appearance, and an incidental finding of tiny early Zenkers diverticulum which intermittently fills and spontaneously empties. Encourage oral intake, continue with protonix and will discuss with surgery if patient is requiring EGD. WBC continues to be elevated although patient is afebrile and denies any chest pain or shortness of breath or abdominal pain. Most likely reactive. Will continue IV fluids and closely monitor. Repeat am labs. Possible discharge in 24 hours. Objective - Vital Signs Vital signs: Vital Signs Temp 98.0 F 06/19/21 11:15 Pulse 87 06/19/21 11:15 Resp 20 06/19/21 11:15 BP 145/78 06/19/21 11:15 Pulse Ox 95 06/19/21 11:15 Intake & Output 06/18/21 06/19/21 06/19/21 18:59 06:59 18:59 Intake Total 240 100 Output Total 0 0 Balance 240 100 0 Intake: Oral 240 100 Output: Stool 0 0 Other: Voiding Method Toilet Toilet Toilet # Voids 2 3 - Labs CBC & Chem 7: 06/19/21 09:49 06/19/21 09:49 Labs: Abnormal Lab Results - Last 24 Hours (Table) 06/19/21 06/19/21 Range/Units 09:49 09:49 WBC 19.1 H (3.8-10.6) k/uL Neutrophils # 17.3 H (1.3-7.7) k/uL Lymphocytes # 0.6 L (1.0-4.8) k/uL Sodium 135 L (137-145) mmol/L Carbon Dioxide 19 L (22-30) mmol/L BUN 29 H (7-17) mg/dL Creatinine 1.15 H (0.52-1.04) mg/dL Glucose 126 H (74-99) mg/dL Calcium 8.1 L (8.4-10.2) mg/dL
[2021-06-20] MEDS: SODIUM CHLORIDE 0.9% 1,000 ML IV SCH (06:16)
[2021-06-20] MEDS: PANTOPRAZOLE 40 MG TABLET PO SCH (09:35)
[2021-06-20] MEDS: atenoloL 50 MG TAB PO SCH (09:35)
[2021-06-20] MEDS: ENOXAPARIN 30 MG/0.3 ML SYRINGE SQ SCH (09:35)
[2021-06-20 11:19] LABS: African American GFR (CKD) 69 (>60 ml/min/1.73 sqM); Anion Gap 9 mmol/L; Blood Urea Nitrogen 22 mg/dL (7-17); Calcium 8.1 mg/dL (8.4-10.2); Carbon Dioxide 17 mmol/L (22-30); Chloride 108 mmol/L (98-107); Glucose 132 mg/dL (74-99); Non-African American GFR(CKD) 60 (>60 ml/min/1.73 sqM); Potassium 3.7 mmol/L (3.5-5.1); Sodium 134 mmol/L (137-145)
[2021-06-20 11:25] LABS: Basophils % (A) 0 %; Eosinophils # (A) 0.1 k/uL (0-0.7); Eosinophils % (A) 1 %; HCT 36.7 % (34.0-46.0); HGB 11.6 gm/dL (11.4-16.0); Lymphocytes # (A) 0.7 k/uL (1.0-4.8); Lymphocytes % (A) 4 %; MCH 30.6 pg (25.0-35.0); MCHC 31.7 g/dL (31.0-37.0); MCV 96.5 fL (80.0-100.0); Mean Platelet Volume 7.7; Monocytes # (A) 0.9 k/uL (0-1.0); Monocytes % (A) 6 %; Neutrophils # (A) 13.1 k/uL (1.3-7.7); Neutrophils % (A) 87 %; Platelet Count 403 k/uL (150-450); RDW 14.6 % (11.5-15.5)
[2021-06-20 11:57] VITALS: BP 138/78; PULSE 85; RESP 16; TEMP 97.8
--- NOTE | 2021-06-20 13:16 | P.PN ---
Progress Note - Text Progress Note Date: 06/20/21 The patient states he is swallowing better. She wishes to go home today. I discussed with her we could do an outpatient EGD. On exam vital signs are stable. Abdomen soft. Patient stable for discharge home from surgical standpoint. She'll follow-up in the office in one week.
--- NOTE | 2021-06-21 01:09 | P.DS ---
Providers Date of admission: 06/16/21 00:43 Expected date of discharge: 06/20/21 Attending physician: Matheus Max Consults: 06/16/21 00:44 Consult Physician Routine Consulting Provider: Gaviota Reyes Consult Reason/Comments: Acute kidney injury Do you want consulting provider notified?: Yes 06/18/21 12:15 Consult Physician Urgent Consulting Provider: Glen Barry Consult Reason/Comments: difficulty and pain with swallowing Do you want consulting provider notified?: Yes Primary care physician: Chelsea Mcdowell Hospital Course: Final diagnosis -Possible viral gastroenteritis CT findings of retroperitoneal lymphadenopathy is probably secondary to enteritis rather than pericarditis patient's symptomatology is not consistent with pancreatitis pancreatic lipase is not elevated either. improved -severe hyponatremia probably secondary to diuretic use as well as hypovolemia from nausea vomiting diarrhea, -Hypertension -dysphagia -Hypokalemia, improved -leukocytosis: Secondary to assessment 1 -DVT prophylaxis -GI prophylaxis -full code Discharge disposition Patient is being discharged in a stable condition with guarded prognosis to home. Patient will follow-up with her pcp Dr. Tran in the outpatient setting upon discharge. Patient is to also to follow up with general surgery Dr. Barry as scheduled. Patient will continue protonix twice daily. Total time taken is greater than 35 minutes. Hospital course Patient is a pleasant 65-year-old female came in with the moderate to severe bilateral lower abdominal pain which is pressure-like not sharp, along with nausea vomiting going on for about a week patient is found to be severely hyponatremic patient had flulike symptoms with this without any fever. Patient denied any recent antibiotic use patient is found to be severely hyponatremic with serum sodium 120 and patient is on hydrochlorothiazide for hypertension. Patient denied any lightheadedness. Patient presently doesn't have any fever. Patient is tested negative for Covid 19 via PCR. Having diarrhea and nausea still there but bit better. 06/17/2021 She is seen in follow-up this morning and is closely monitored with nephrology for hyponatremia and acute kidney injury and maintained on IV fluids patient continues with diarrhea and ordered C. diff testing which was negative and will add Imodium and Questran and monitor for improvement in sodium along with diarrhea. Encouraged increased activity along with oral intake. Sodium today slightly improved at 126, potassium 3.0 and will replace per protocol, creatinine is 1.6 and will continue with IV fluids and repeat labs. 06/18/2021 Patient is seen in follow up today and states that her diarrhea has subsided. Patient being followed by nephrology and sodium and potassium improved as well. Patient states she is having difficulty and pain with swallowing in the esophagus that has been ongoing over the last few months and is having extreme discomfort today even with water. Will consult general surgery for evaluation. 06/19/2021 Patient is evaluated today and continues with pain and discomfort while swallowing. Electrolytes improving and continued on IV hydration. Nephrology following and general surgery evaluated the patient and will monitor and possible endoscopy if difficulty in swallowing and discomfort continues. Upper GI barium swallow ordered. Patient denies any chest pain or palpitations. Patient is afebrile. 06/20/2021 Patient is seen today in follow up and feeling much better. Patient tolerating diet and will continue and slowly advance as tolerated. Patient to continue on twice daily protonix and follow up outpatient with surgery for possible EGD. Esophogram showed small sliding hernia with an episode of gastroesophageal reflux, mild to mod esophageal dysmotility with no evidence of ulcer, stricture, or other abnormality, some initial narrowing and irregularity of the second portion of the duodenum which distends to a normal appearance, and an incidental finding of tiny early Zenkers diverticulum which intermittently fills and spontaneously empties. Patient is requesting to go home. On exam vital signs are stable. Cardio S1, S2 are muffled. Respiratory system shows diminished breath sounds at the bases with no wheezing or rhonchi noted. Abdomen is soft and nontender. Nervous system shows no focal deficits. PHYSICAL EXAMINATION: GENERAL: The patient is alert and oriented x3, not in any acute distress. Well developed, well nourished. HEENT: Pupils are round and equally reacting to light. EOMI. No scleral icterus. No conjunctival pallor. Normocephalic, atraumatic. No pharyngeal erythema. No thyromegaly. CARDIOVASCULAR: S1 and S2 present. No murmurs, rubs, or gallops. PULMONARY: Chest is clear to auscultation, no wheezing or crackles. ABDOMEN: Soft, nontender, nondistended, normoactive bowel sounds. No palpable organomegaly. MUSCULOSKELETAL: No joint swelling or deformity. EXTREMITIES: No cyanosis, clubbing, or pedal edema. NEUROLOGICAL: Gross neurological examination did not reveal any focal deficits. SKIN: No rashes. Please refer to medication reconciliation sheet for a list of medications. Patient Condition at Discharge: Stable Plan - Discharge Summary New Discharge Prescriptions: New Pantoprazole [Protonix] 40 mg PO AC-BID 30 Days #60 tab Continue atenoloL [Tenormin] 50 mg PO DAILY Bismuth Subsalicylate [Kaopectate] 524 mg PO BID PRN PRN Reason: Gi Upset Acetaminophen Tab [Tylenol] 1,000 mg PO BID PRN PRN Reason: Pain Acetaminophen Tab [Tylenol] 1,500 mg PO HS PRN PRN Reason: Pain Discontinued Hydrochlorothiazide [hydroCHLOROthiazide] 12.5 mg PO DAILY Discharge Medication List atenoloL [Tenormin] 50 mg PO DAILY 02/12/21 [History] Acetaminophen Tab [Tylenol] 1,000 mg PO BID PRN 06/15/21 [History] Acetaminophen Tab [Tylenol] 1,500 mg PO HS PRN 06/15/21 [History] Bismuth Subsalicylate [Kaopectate] 524 mg PO BID PRN 06/15/21 [History] Pantoprazole [Protonix] 40 mg PO AC-BID 30 Days #60 tab 06/20/21 [Rx] Follow up Appointment(s)/Referral(s): Jeremias Tran MD [Primary Care Provider] - 1-2 days Glen Barry MD [STAFF PHYSICIAN] - 1 Week Patient Instructions/Handouts: Hyponatremia (DC) Activity/Diet/Wound Care/Special Instructions: Call office on Wednesday to scheduled EGD as outpatient EGD Activity Limited until follow-up Follow-up primary care provider and discharge Follow-up surgery to discuss possible EGD outpatient Continue medications as prescribed Continue full liquid diet over the next few days and slowly advance as tolerated Discharge Disposition: HOME SELF-CARE
== END 2021-06-20 16:36 | disposition home or self-care (01) | DRG 391 ==
LOC: EC 20:37 → 5NMEDONC 06-16 00:43
PROVIDERS: ADMIT Hospitalist; ATTEND Hospitalist
DX: A08.4 Viral intestinal infection, unspecified (principal); N17.0 Acute kidney failure with tubular necrosis; E87.1 Hypo-osmolality and hyponatremia; E87.2 Acidosis; E86.1 Hypovolemia; E87.6 Hypokalemia; E87.70 Fluid overload, unspecified; I10 Essential (primary) hypertension; K52.9 Noninfective gastroenteritis and colitis, unspecified; Z20.822 Contact with and (suspected) exposure to COVID-19; Z87.891 Personal history of nicotine dependence; Z79.899 Other long term (current) drug therapy; R13.10 Dysphagia, unspecified; R59.0 Localized enlarged lymph nodes
CPT/HCPCS: 36415; 74176; 74240; 80048; 80053; 81001; 82150; 83605; 83690; 83735; 83935; 84132; 84295; 84484; 85025; 87324; 87635; 93005; 96361; 96374; 96375; 99285

== ENCOUNTER 2021-06-30 08:18 | Day surgery (SDC) | payer MEDICARE ==
[2021-06-25 12:27] VITALS: BMI 31.3
[2021-06-30] MEDS ORDERED: LACTATED RINGERS 1,000 ML IV SCH (08:28)
[2021-06-30] MEDS ORDERED: LIDOCAINE 1% (10MG/ML) FOR IV START INTRADERMA PRN (08:28)
[2021-06-30 09:08] VITALS: TEMP 97.4
[2021-06-30] MEDS ORDERED: PROPOFOL 10 MG/ML 20 ML VIAL IV ONE (09:59)
[2021-06-30] MEDS ORDERED: LIDOCAINE 1% INJ 10MG/ML (20 ML MDV) ONE (09:59)
--- NOTE | 2021-06-30 10:01 | P.GSHP ---
History of Present Illness H&P Date: 06/30/21 Chief Complaint: GERD Is a 66-year-old female who presents today for EGD. She's had issues with GERD. Past Medical History Past Medical History: GERD/Reflux, Hypertension Additional Past Medical History / Comment(s): FREQ DIARRHEA. DIFFICULTY SWALLOWING AT TIMES History of Any Multi-Drug Resistant Organisms: None Reported Past Surgical History: No Surgical Hx Reported Additional Past Surgical History / Comment(s): NO PRIOR SURGERIES OR PROCEDURES Past Anesthesia/Blood Transfusion Reactions: No Reported Reaction Additional Past Anesthesia/Blood Transfusion Reaction / Comment(s): NO PRIOR ANESTHESIA Smoking Status: Former smoker - Past Family History Father Family Medical History: Cancer Medications and Allergies Home Medications Medication Instructions Recorded Confirmed Type atenoloL [Tenormin] 50 mg PO DAILY 02/12/21 06/30/21 History Pantoprazole [Protonix] 40 mg PO AC-BID 30 Days #60 tab 06/20/21 06/30/21 Rx Allergies Allergy/AdvReac Type Severity Reaction Status Date / Time No Known Allergies Allergy Verified 06/30/21 09:09 Surgical - Exam Vital Signs Temp Pulse Resp BP Pulse Ox 97.4 F L 68 16 173/84 97 06/30/21 09:07 06/30/21 09:07 06/30/21 09:07 06/30/21 09:07 06/30/21 09:07 - General well developed, well nourished, no distress - Eyes PERRL - ENT normal pinna - Neck no masses - Respiratory normal expansion - Cardiovascular Rhythm: regular - Abdomen Abdomen: soft, non tender Assessment and Plan Assessment: GERD. We'll perform EGD.
--- NOTE | 2021-06-30 10:11 | P.OP ---
Date of Procedure: 06/30/21 Preoperative Diagnosis: GERD Postoperative Diagnosis: Esophagitis Procedure(s) Performed: EGD Anesthesia: MAC Surgeon: Glen Barry Pathology: other (Esophagus, antrum) Condition: stable Disposition: PACU Description of Procedure: Patient's placed on the endoscopy table in the lateral position. She received IV sedation. The gastroscope placed oropharynx passed in the esophagus and stomach. Scope was then placed through the pylorus. The first and second portion of the duodenum appeared normal. Scope was then brought back the antrum was mildly inflamed. A biopsies performed. Scope was then retroflexed and the remainder of the stomach appeared normal. The GE junction was at 40 cm. The distal esophagus appeared grossly inflamed.. Here to have the appearance of Flaquita esophagitis. A biopsies performed. The proximal esophagus. Normal. Scope withdrawn for patient.
[2021-06-30 10:35] VITALS: PULSE 78
[2021-06-30 10:36] VITALS: BP 152/88; RESP 16
== END 2021-06-30 10:56 | disposition home or self-care (01) ==
LOC: ORWHC2ENDO 08:18
PROVIDERS: ATTEND Surgery
DX: K21.00 Gastro-esophageal reflux disease with esophagitis, without bleeding (principal); K29.50 Unspecified chronic gastritis without bleeding; I10 Essential (primary) hypertension; R19.7 Diarrhea, unspecified; R13.10 Dysphagia, unspecified; Z87.891 Personal history of nicotine dependence; Z79.899 Other long term (current) drug therapy; Z80.9 Family history of malignant neoplasm, unspecified
CPT/HCPCS: 88305; 88312; 43239; J2001; J2704

== ENCOUNTER → 2021-07-02 | Outpatient (CLI) | payer MEDICARE ==
--- NOTE | 2021-07-02 09:25 | NM ---
Nuclear medicine hepatobiliary scan. HISTORY: Pain. DOSAGE: The patient received 1.8 micrograms of CCK and 4.9 mCi of Technetium 99m Choletec. FINDINGS: There is heterogeneous extraction. The gallbladder is seen by 40 minutes. There is biliar y to bowel clearance by 30 minutes. Ejection fraction is 83%. IMPRESSION: 1. Gallbladder fills within normal limits. Ejection fraction 83% can occasionally be seen with hyperd ynamic gallbladder correlate clinically. 2. Heterogeneous hepatic uptake could be artifactual. Recent CT scan reported homogeneous liver. Bhavna elate with liver function studies.
== END | disposition home or self-care (01) ==
LOC: RADNMMAIN 06:52
PROVIDERS: ATTEND Surgery
DX: K82.8 Other specified diseases of gallbladder (principal)
CPT/HCPCS: 78227; A9537; J2805

== ENCOUNTER 2021-07-10 10:53 | Inpatient (IN) | payer MEDICARE ==
[2021-07-10] MEDS ORDERED: SODIUM CHLORIDE 0.9% 1,000 ML IV STA ×2 (11:12→12:52)
--- NOTE | 2021-07-10 11:19 | ED ---
General Adult HPI - General Chief complaint: Nausea/Vomiting/Diarrhea Stated complaint: Vomiting Time Seen by Provider: 07/10/21 11:03 Source: patient Mode of arrival: ambulatory Limitations: no limitations - History of Present Illness Initial comments: This 66-year-old female presents emergency Department with right upper quadrant pain 1 month. Patient states she is supposed to get a cholecystectomy on Wednesday, however, she has been unable to keep any solids down and has only been able to keep down water. Patient states she has been experiencing these symptoms for almost a month, however, they have been worsening for the last couple of days. She states her abdominal pain has been worsening. Patient states she called Dr. Barry who told her to come to the ER to be assessed. Patient denies any chest pain, shortness of breath, diarrhea, headache, dizziness, fever, change in vision. - Related Data Home Medications Medication Instructions Recorded Confirmed atenoloL [Tenormin] 50 mg PO DAILY 02/12/21 07/10/21 Ondansetron [Zofran] 4 mg PO Q6H PRN 07/10/21 07/10/21 Previous Rx's Medication Instructions Recorded Pantoprazole [Protonix] 40 mg PO AC-BID 30 Days #60 tab 06/20/21 Nystatin 100,000 Unit/ml Susp 4 ml PO QID #200 ml 06/30/21 [Mycostatin Oral Susp] Allergies Allergy/AdvReac Type Severity Reaction Status Date / Time No Known Allergies Allergy Verified 07/10/21 12:31 Review of Systems ROS Statement: Those systems with pertinent positive or pertinent negative responses have been documented in the HPI. ROS Other: All systems not noted in ROS Statement are negative. Past Medical History Past Medical History: GERD/Reflux, Hypertension Additional Past Medical History / Comment(s): FREQ DIARRHEA. DIFFICULTY SWALLOWING AT TIMES History of Any Multi-Drug Resistant Organisms: None Reported Past Surgical History: No Surgical Hx Reported Additional Past Surgical History / Comment(s): EGD Past Anesthesia/Blood Transfusion Reactions: No Reported Reaction Additional Past Anesthesia/Blood Transfusion Reaction / Comment(s): NO PRIOR GENERAL ANESTHESIA Past Psychological History: No Psychological Hx Reported Smoking Status: Former smoker Past Alcohol Use History: None Reported Past Drug Use History: None Reported - Past Family History Father Family Medical History: Cancer General Exam Limitations: no limitations General appearance: alert, in no apparent distress Head exam: Present: atraumatic, normocephalic, normal inspection Eye exam: Present: normal appearance, EOMI ENT exam: Present: normal exam, mucous membranes moist Neck exam: Present: normal inspection, full ROM Respiratory exam: Present: normal lung sounds bilaterally. Absent: respiratory distress, wheezes, rales, rhonchi, stridor Cardiovascular Exam: Present: normal rhythm, tachycardia, normal heart sounds. Absent: systolic murmur, diastolic murmur, rubs, gallop, clicks GI/Abdominal exam: Present: soft, tenderness (Right upper quadrant tenderness along with slight pain to palpation over epigastric region), normal bowel sounds. Absent: distended, guarding, rebound, rigid Extremities exam: Present: full ROM Back exam: Present: full ROM. Absent: CVA tenderness (R), CVA tenderness (L), paraspinal tenderness, vertebral tenderness Neurological exam: Present: alert, oriented X3, CN II-XII intact Psychiatric exam: Present: normal affect, normal mood Skin exam: Present: warm, dry, intact, normal color. Absent: rash Course Vital Signs 07/10/21 07/10/21 10:56 11:46 Temperature 98 F Pulse Rate 105 H 109 H Respiratory 18 18 Rate Blood Pressure 135/88 125/90 O2 Sat by Pulse 95 96 Oximetry Medical Decision Making - Medical Decision Making This 66-year-old female presents emergency Department with worsening abdominal pain. Patient states she was supposed to have her gallbladder removed on Wednesday, however, over the last couple of days abdominal pain is worsening and she is unable to keep any solids down is only able to keep small amounts of water down. Patient states she called Dr. Barry this morning who told her to come here. Labs reveal WBC 11.2, RBC 3.68, Hgb 11.3, PT 12.5, INR 1.2, sodium 126, chloride 91, AST 42, alk phos 145, amylase 226, lipase 392. Spoke to Dr. Barry who agreed to have patient admitted to his services. Patient placed on fluids for pancreatitis. Discussed case with my attending. My attending is . - Lab Data Result diagrams: 07/10/21 11:27 07/10/21 11:27 Lab Results 07/10/21 07/10/21 07/10/21 Range/Units 11:27 11:27 11:27 WBC 11.2 H (3.8-10.6) k/uL RBC 3.68 L (3.80-5.40) m/uL Hgb 11.3 L (11.4-16.0) gm/dL Hct 34.0 (34.0-46.0) % MCV 92.4 (80.0-100.0) fL MCH 30.6 (25.0-35.0) pg MCHC 33.1 (31.0-37.0) g/dL RDW 13.5 (11.5-15.5) % Plt Count 363 (150-450) k/uL MPV 8.5 PT 12.5 H (9.0-12.0) sec INR 1.2 H (<1.2) APTT 23.3 (22.0-30.0) sec Sodium 126 L (137-145) mmol/L Potassium 3.7 (3.5-5.1) mmol/L Chloride 91 L (98-107) mmol/L Carbon Dioxide 24 (22-30) mmol/L Anion Gap 11 mmol/L BUN 14 (7-17) mg/dL Creatinine 0.79 (0.52-1.04) mg/dL Est GFR (CKD-EPI)AfAm >90 (>60 ml/min/1.73 sqM) Est GFR (CKD-EPI)NonAf 78 (>60 ml/min/1.73 sqM) Glucose 150 H (74-99) mg/dL Plasma Lactic Acid Terrence (0.7-2.0) mmol/L Calcium 9.2 (8.4-10.2) mg/dL Total Bilirubin 1.2 (0.2-1.3) mg/dL AST 42 H (14-36) U/L ALT 29 (4-34) U/L Alkaline Phosphatase 145 H (38-126) U/L Total Protein 6.4 (6.3-8.2) g/dL Albumin 2.8 L (3.5-5.0) g/dL Amylase 226 H (30-110) U/L Lipase 392 H (23-300) U/L Blood Type Blood Type Confirm Blood Type Recheck Bld Type Recheck Status Antibody Screen Spec Expiration Date 07/10/21 07/10/21 07/10/21 Range/Units 11:27 11:27 11:35 WBC (3.8-10.6) k/uL RBC (3.80-5.40) m/uL Hgb (11.4-16.0) gm/dL Hct (34.0-46.0) % MCV (80.0-100.0) fL MCH (25.0-35.0) pg MCHC (31.0-37.0) g/dL RDW (11.5-15.5) % Plt Count (150-450) k/uL MPV PT (9.0-12.0) sec INR (<1.2) APTT (22.0-30.0) sec Sodium (137-145) mmol/L Potassium (3.5-5.1) mmol/L Chloride (98-107) mmol/L Carbon Dioxide (22-30) mmol/L Anion Gap mmol/L BUN (7-17) mg/dL Creatinine (0.52-1.04) mg/dL Est GFR (CKD-EPI)AfAm (>60 ml/min/1.73 sqM) Est GFR (CKD-EPI)NonAf (>60 ml/min/1.73 sqM) Glucose (74-99) mg/dL Plasma Lactic Acid Terrence 1.7 (0.7-2.0) mmol/L Calcium (8.4-10.2) mg/dL Total Bilirubin (0.2-1.3) mg/dL AST (14-36) U/L ALT (4-34) U/L Alkaline Phosphatase (38-126) U/L Total Protein (6.3-8.2) g/dL Albumin (3.5-5.0) g/dL Amylase (30-110) U/L Lipase (23-300) U/L Blood Type A Positive Blood Type Confirm A Positive Blood Type Recheck No Previous Record Bld Type Recheck Status CABO Indicated Antibody Screen NEGATIVE Spec Expiration Date 07/13/20212326 Disposition Clinical Impression: Pancreatitis Disposition: [facility]MITT[facility] Condition: Stable Is patient prescribed a controlled substance at d/c from ED?: No Referrals: Jeremias Tran MD [Primary Care Provider] - 1-2 days Time of Disposition: 13:09
[2021-07-10 11:59] LABS: HGB 11.3 gm/dL (11.4-16.0); MCH 30.6 pg (25.0-35.0); MCHC 33.1 g/dL (31.0-37.0); MCV 92.4 fL (80.0-100.0); Mean Platelet Volume 8.5; Platelet Count 363 k/uL (150-450); RBC 3.68 m/uL (3.80-5.40); RDW 13.5 % (11.5-15.5); WBC 11.2 k/uL (3.8-10.6)
[2021-07-10 12:08] LABS: INR 1.2 (<1.2); Partial Thromboplastin Time 23.3 sec (22.0-30.0); Prothrombin Time 12.5 sec (9.0-12.0)
[2021-07-10 12:09] LABS: Amylase 226 U/L (30-110); Chloride 91 mmol/L (98-107); Glucose 150 mg/dL (74-99)
[2021-07-10 12:10] LABS: ALT 29 U/L (4-34); Anion Gap 11 mmol/L; Calcium 9.2 mg/dL (8.4-10.2); Carbon Dioxide 24 mmol/L (22-30); Lipase 392 U/L (23-300); Sodium 126 mmol/L (137-145)
[2021-07-10 12:11] LABS: African American GFR (CKD) >90 (>60 ml/min/1.73 sqM); Blood Urea Nitrogen 14 mg/dL (7-17); Non-African American GFR(CKD) 78 (>60 ml/min/1.73 sqM); Total Bilirubin 1.2 mg/dL (0.2-1.3)
[2021-07-10 12:22] LABS: AST 42 U/L (14-36); Albumin 2.8 g/dL (3.5-5.0); Alkaline Phosphatase 145 U/L (38-126); Potassium 3.7 mmol/L (3.5-5.1); Total Protein 6.4 g/dL (6.3-8.2)
[2021-07-10] MEDS ORDERED: ONDANSETRON 4 MG/2 ML VIAL IVP PRN ×2 (13:09→14:16)
[2021-07-10] MEDS ORDERED: HYDROmorphone 0.5 MG/0.5 ML SYRINGE IVP PRN (13:09)
[2021-07-10] MEDS ORDERED: NALOXONE 0.4 MG/ML 1 ML VIAL IV PRN (13:09)
[2021-07-10 13:47] LABS: Amorphous Sediment,Urine Occasional /hpf; Appearance,Urine Cloudy (Clear); Bacteria,Urine Rare /hpf; Bilirubin,Urine 1+ (Negative); Blood,Urine Trace (Negative); Color,Urine Dark Yellow; Glucose,Urine (UA) Negative (Negative); Hyaline Casts,Urine 1 /lpf (0-2); Ketones,Urine 1+ (Negative); Leukocyte Esterase,Urine Negative (Negative); Mucus,Urine Few /hpf; Nitrite,Urine Negative (Negative); Protein,Urine 2+ (Negative); RBC,Urine 2 /hpf (0-5); Specific Gravity,Urine 1.027 (1.001-1.035); Squamous Epithelial Cell,Urine 3 /hpf (0-4); WBC,Urine 7 /hpf (0-5)
[2021-07-10 14:09] LABS: Band Neutrophils % 10 %; Eosinophils # (M) 0.11 k/uL (0-0.7); Lymphocytes # (M) 1.12 k/uL (1.0-4.8); Metamyelocytes # (M) 0.11 k/uL (0); Metamyelocytes % 1 %; Monocytes # (M) 1.01 k/uL (0-1.0); Myelocytes # (M) 0.22 k/uL (0); Myelocytes % 2 %; Neutrophils % (M) 69 %; Nucleated Red Blood Cells 0 /100 WBC (0-0); Promyelocytes # (M) 0.11 k/uL (0); Promyelocytes % 1 %; Total Cells Counted 200
--- NOTE | 2021-07-10 14:20 | P.GSHP ---
History of Present Illness H&P Date: 07/10/21 CHIEF COMPLAINT: Abdominal pain HISTORY OF PRESENT ILLNESS: This is a 66-year-old female with a known history of a hyperkinetic gallbladder. She was initially scheduled for cholecystectomy this coming Wednesday with Dr. Barry. However she's had increase in her right upper quadrant abdominal pain with nausea and vomiting. Patient unable to keep solids or liquids down. She denies any fevers or chills. She denies any past history of pancreatitis. Denies any alcohol use. Patient has had mild tachycardia heart rate 109. PAST MEDICAL HISTORY: GERD and hypertension PAST SURGICAL HISTORY: EGD- shows esophagitis MEDICATIONS: See list. ALLERGIES: See list. SOCIAL HISTORY: No illicit drug use. REVIEW OF SYSTEMS: CONSTITUTIONAL: Denies fever or chills. HEENT: Denies blurred vision, vision changes, or eye pain. Denies hemoptysis CARDIOVASCULAR: Denies chest pain or pressure. RESPIRATORY: No shortness of breath. GASTROINTESTINAL: See HPI for pertinent findings HEMATOLOGIC: Denies bleeding disorders. GENITOURINARY: Denies any blood in urine or increased urinary frequency. SKIN: Denies pruitis. Denies rash. PHYSICAL EXAM: VITAL SIGNS: Reviewed GENERAL: Well-developed in no acute distress. HEENT: No sclera icterus. Extraocular movements grossly intact. Moist buccal mucosa. Head is atraumatic, normocephalic. No nasal drainage. ABDOMEN: Soft. Nondistended. Right upper quadrant pain and epigastric tenderness NEUROLOGIC: Alert and oriented. Cranial nerves II through XII grossly intact. LABORATORY DATA: WBC 11.2 hemoglobin 11.3 platelets 361 INR 1.2 sodium 126 potassium 3.7 creatinine 0.7 lactic acid 1.7 total bili 1.2 AST 42 ALT 29 alk phos 145 amylase 226 and lipase 392 COVID-19 not detected Urinalysis no evidence of infection IMAGING: HIDA scan from 07/02/2021 gallbladder fills within normal limits. Ejection fraction 83% Occasionally be seen with hyperdynamic gallbladder correlate clinically. hepatic uptake could be artifactual. Recent computed tomography scan reported a homogenous liver. ASSESSMENT: 1. Abdominal pain 2. Pancreatitis 3. Hyperkinetic gallbladder 4. Hyponatremia PLAN: -Check abdominal ultrasound -Keep patient nothing by mouth -Continue IV fluids -Repeat labs in a.m. -Continue Zofran as needed for nausea and vomiting -Continue pain medication as needed -Consult medicine service for medical and hyponatremia management -GI prophylaxis Protonix and DVT prophylaxis subcu heparin Physician Cooler Tender note has been reviewed by physician. Signing provider agrees with the documented findings, assessment, and plan of care. Past Medical History Past Medical History: GERD/Reflux, Hypertension Additional Past Medical History / Comment(s): FREQ DIARRHEA. DIFFICULTY SWALLOWING AT TIMES History of Any Multi-Drug Resistant Organisms: None Reported Past Surgical History: No Surgical Hx Reported Additional Past Surgical History / Comment(s): EGD Past Anesthesia/Blood Transfusion Reactions: No Reported Reaction Additional Past Anesthesia/Blood Transfusion Reaction / Comment(s): NO PRIOR GENERAL ANESTHESIA Past Psychological History: No Psychological Hx Reported Smoking Status: Former smoker Past Alcohol Use History: None Reported Past Drug Use History: None Reported - Past Family History Father Family Medical History: Cancer Medications and Allergies Home Medications Medication Instructions Recorded Confirmed Type atenoloL [Tenormin] 50 mg PO DAILY 02/12/21 07/10/21 History Pantoprazole [Protonix] 40 mg PO AC-BID 30 Days #60 tab 06/20/21 07/10/21 Rx Nystatin 100,000 Unit/ml Susp 4 ml PO QID #200 ml 06/30/21 07/10/21 Rx [Mycostatin Oral Susp] Ondansetron [Zofran] 4 mg PO Q6H PRN 07/10/21 07/10/21 History Allergies Allergy/AdvReac Type Severity Reaction Status Date / Time No Known Allergies Allergy Verified 07/10/21 12:31 Surgical - Exam Vital Signs Temp Pulse Resp BP Pulse Ox 98 F 105 H 18 135/88 95 07/10/21 10:56 07/10/21 10:56 07/10/21 10:56 07/10/21 10:56 07/10/21 10:56 Results - Labs 07/10/21 11:27 07/10/21 11:27 Abnormal Lab Results - Last 24 Hours (Table) 07/10/21 07/10/21 07/10/21 Range/Units 11:27 11:27 11:27 WBC 11.2 H (3.8-10.6) k/uL RBC 3.68 L (3.80-5.40) m/uL Hgb 11.3 L (11.4-16.0) gm/dL PT 12.5 H (9.0-12.0) sec INR 1.2 H (<1.2) Sodium 126 L (137-145) mmol/L Chloride 91 L (98-107) mmol/L Glucose 150 H (74-99) mg/dL AST 42 H (14-36) U/L Alkaline Phosphatase 145 H (38-126) U/L Albumin 2.8 L (3.5-5.0) g/dL Amylase 226 H (30-110) U/L Lipase 392 H (23-300) U/L Urine Appearance (Clear) Urine Protein (Negative) Urine Ketones (Negative) Urine Blood (Negative) Urine Bilirubin (Negative) Urine WBC (0-5) /hpf Amorphous Sediment (None) /hpf Urine Bacteria (None) /hpf Urine Mucus (None) /hpf 07/10/21 Range/Units 12:45 WBC (3.8-10.6) k/uL RBC (3.80-5.40) m/uL Hgb (11.4-16.0) gm/dL PT (9.0-12.0) sec INR (<1.2) Sodium (137-145) mmol/L Chloride (98-107) mmol/L Glucose (74-99) mg/dL AST (14-36) U/L Alkaline Phosphatase (38-126) U/L Albumin (3.5-5.0) g/dL Amylase (30-110) U/L Lipase (23-300) U/L Urine Appearance Cloudy H (Clear) Urine Protein 2+ H (Negative) Urine Ketones 1+ H (Negative) Urine Blood Trace H (Negative) Urine Bilirubin 1+ H (Negative) Urine WBC 7 H (0-5) /hpf Amorphous Sediment Occasional H (None) /hpf Urine Bacteria Rare H (None) /hpf Urine Mucus Few H (None) /hpf Diabetes panel 07/10/21 Range/Units 11:27 Sodium 126 L (137-145) mmol/L Potassium 3.7 (3.5-5.1) mmol/L Chloride 91 L (98-107) mmol/L Carbon Dioxide 24 (22-30) mmol/L BUN 14 (7-17) mg/dL Creatinine 0.79 (0.52-1.04) mg/dL Glucose 150 H (74-99) mg/dL Calcium 9.2 (8.4-10.2) mg/dL AST 42 H (14-36) U/L ALT 29 (4-34) U/L Alkaline Phosphatase 145 H (38-126) U/L Total Protein 6.4 (6.3-8.2) g/dL Albumin 2.8 L (3.5-5.0) g/dL Calcium panel 07/10/21 Range/Units 11:27 Calcium 9.2 (8.4-10.2) mg/dL Albumin 2.8 L (3.5-5.0) g/dL Pituitary panel 07/10/21 Range/Units 11:27 Sodium 126 L (137-145) mmol/L Potassium 3.7 (3.5-5.1) mmol/L Chloride 91 L (98-107) mmol/L Carbon Dioxide 24 (22-30) mmol/L BUN 14 (7-17) mg/dL Creatinine 0.79 (0.52-1.04) mg/dL Glucose 150 H (74-99) mg/dL Calcium 9.2 (8.4-10.2) mg/dL Adrenal panel 07/10/21 Range/Units 11:27 Sodium 126 L (137-145) mmol/L Potassium 3.7 (3.5-5.1) mmol/L Chloride 91 L (98-107) mmol/L Carbon Dioxide 24 (22-30) mmol/L BUN 14 (7-17) mg/dL Creatinine 0.79 (0.52-1.04) mg/dL Glucose 150 H (74-99) mg/dL Calcium 9.2 (8.4-10.2) mg/dL Total Bilirubin 1.2 (0.2-1.3) mg/dL AST 42 H (14-36) U/L ALT 29 (4-34) U/L Alkaline Phosphatase 145 H (38-126) U/L Total Protein 6.4 (6.3-8.2) g/dL Albumin 2.8 L (3.5-5.0) g/dL
--- NOTE | 2021-07-10 14:46 | US ---
EXAMINATION TYPE: US abdomen complete DATE OF EXAM: 07/10/2021 COMPARISON: CT abdomen and pelvis June 11, 2021 CLINICAL HISTORY: RUQ abdominal pain. N/V. Patient states she is getting her GB removed next Wednesday . EXAM MEASUREMENTS: Liver Length: 16.0 cm Gallbladder Wall: 0.2 cm CBD: 0.6 cm Spleen: 9.4 cm Right Kidney: 10.9 x 4.7 x 4.7 cm Left Kidney: 9.6 x 4.6 x 5.0 cm Limited due to overlying bowel gas Pancreas: Obscured by bowel gas Liver: limited visualization, scanned through ribs Gallbladder: Possible sludge seen. Evidence for sonographic Peters's sign: neg CBD: limited visualization but measures within normal limits Spleen: wnl Right Kidney: Inferior pole obscured by bowel gas Left Kidney: Lower lateral cystic lesion= 1.8 x 1.7 x 1.6 cm Upper IVC: wnl Abd Aorta: Limited visualization, obscured by overlying bowel gas IVC is seen at the hepatic dome. There is no aneurysm of the visualized proximal abdominal aorta. Sub optimal evaluation of the mid and distal abdominal aorta along with the pancreas due to body habitus and shadowing from overlying bowel gas. Visualized liver is heterogeneously hyperechoic correlating w ith diffuse fatty infiltration on CT. Evaluation for masses suboptimal due to the heterogeneity. Comm on bile duct measures 6 mm which is within normal limits for patient's age. Gallbladder is not comple tely anechoic consistent with small stones and/or gallbladder sludge. It has distended margins withou t wall thickening or surrounding fluid. Sonographic Peters sign is negative. No hydronephrosis in eit her kidney with poor visualization of lower half of the right kidney. Spleen is normal in size. IMPRESSION: Sludge and/or small stones in gallbladder without secondary ultrasound evidence for acute cholecystitis. Suboptimal study particularly suboptimal evaluation of pancreas on this exam. Marked fatty infiltration of liver is redemonstrated. No new biliary dilatation is noted.
--- NOTE | 2021-07-10 14:57 | P.CONS ---
History of Present Illness - Reason for Consult Hyponatremia - History of Present Illness Patient is 69-year-old female came in with the right upper and lower quadrant abdominal pain which started last night. Patient had similar pain in the past at the time patient was diagnosed with gastroenteritis subsequently patient had an upper GI endoscopy and had esophagitis as well. Patient also had a HIDA scan in the past which showed hypokinetic gallbladder at that time patient is scheduled to undergo cholecystectomy next Wednesday but comes in with increased abdominal pain and tachycardia. Patient has mildly elevated lipase not high enough to say pancreatitis. She does have leukocytosis. Patient is hyp onatremic in the past of hyponatremia was believed to be hypovolemic hyponatremia and was treated with IV fluids with improvement in serum sodium. Patient was comparing of nausea vomiting his abdominal pain is presently 3-09/28 REVIEW OF SYSTEMS: CONSTITUTIONAL: No fever, no malaise, no fatigue. HEENT: No recent visual problems or hearing problems. Denied any sore throat. CARDIOVASCULAR: No chest pain, orthopnea, PND, no palpitations, no syncope. PULMONARY: No shortness of breath, no cough, no hemoptysis. GASTROINTESTINAL: As mentioned in HPI NEUROLOGICAL: No headaches, no weakness, no numbness. HEMATOLOGICAL: Denies any bleeding or petechiae. GENITOURINARY: Denies any burning micturition, frequency, or urgency. MUSCULOSKELETAL/RHEUMATOLOGICAL: Denies any joint pain, swelling, or any muscle pain. ENDOCRINE: Denies any polyuria or polydipsia. The rest of the 14-point review of systems is negative. PHYSICAL EXAMINATION: GENERAL: The patient is alert and oriented x3, not in any acute distress. Well developed, well nourished. HEENT: Pupils are round and equally reacting to light. EOMI. No scleral icterus. No conjunctival pallor. Normocephalic, atraumatic. No pharyngeal erythema. No thyromegaly. CARDIOVASCULAR: S1 and S2 present. No murmurs, rubs, or gallops. PULMONARY: Chest is clear to auscultation, no wheezing or crackles. ABDOMEN: Soft, nontender, nondistended, normoactive bowel sounds. No palpable organomegaly. MUSCULOSKELETAL: No joint swelling or deformity. EXTREMITIES: No cyanosis, clubbing, or pedal edema. NEUROLOGICAL: Gross neurological examination did not reveal any focal deficits. SKIN: No rashes. Assessment and plan -Hyponatremia: Hypervolemic hyponatremia patient is a normal saline rate will be increased to 100 mL/h. And this hypovolemic secondary to nausea vomiting. -Right upper and lower quadrant abdominal pain etiology is not clear probably biliary sludge possibly pancreatitis is low as lipase is not high enough may have some mild inflammation of the pancreas. -Gastritis and esophagitis for which patient is on Protonix -Leukocytosis reactive secondary to biliary sludge pain DVT prophylaxis: Subcutaneous heparin Past Medical History Past Medical History: GERD/Reflux, Hypertension Additional Past Medical History / Comment(s): FREQ DIARRHEA. DIFFICULTY SWALLOWING AT TIMES History of Any Multi-Drug Resistant Organisms: None Reported Past Surgical History: No Surgical Hx Reported Additional Past Surgical History / Comment(s): EGD Past Anesthesia/Blood Transfusion Reactions: No Reported Reaction Additional Past Anesthesia/Blood Transfusion Reaction / Comm: NO PRIOR GENERAL ANESTHESIA Past Psychological History: No Psychological Hx Reported Smoking Status: Former smoker Past Alcohol Use History: None Reported Past Drug Use History: None Reported - Past Family History Father Family Medical History: Cancer Medications and Allergies Home Medications Medication Instructions Recorded Confirmed Type atenoloL [Tenormin] 50 mg PO DAILY 02/12/21 07/10/21 History Pantoprazole [Protonix] 40 mg PO AC-BID 30 Days #60 tab 06/20/21 07/10/21 Rx Nystatin 100,000 Unit/ml Susp 4 ml PO QID #200 ml 06/30/21 07/10/21 Rx [Mycostatin Oral Susp] Ondansetron [Zofran] 4 mg PO Q6H PRN 07/10/21 07/10/21 History Allergies Allergy/AdvReac Type Severity Reaction Status Date / Time No Known Allergies Allergy Verified 07/10/21 12:31 Physical Exam Vitals: Vital Signs Temp Pulse Resp BP Pulse Ox 07/10/21 11:46 109 H 18 125/90 96 07/10/21 10:56 98 F 105 H 18 135/88 95 Intake and Output 07/09/21 07/10/21 07/10/21 22:59 06:59 14:59 Other: Weight 89.358 kg Results CBC & Chem 7: 07/10/21 11:27 07/10/21 11:27 Labs: Abnormal Lab Results - Last 24 Hours (Table) 07/10/21 07/10/21 07/10/21 Range/Units 11:27 11:27 11:27 WBC 11.2 H (3.8-10.6) k/uL RBC 3.68 L (3.80-5.40) m/uL Hgb 11.3 L (11.4-16.0) gm/dL Neutrophils # (Manual) 8.80 H (1.3-7.7) k/uL Monocytes # (Manual) 1.01 H (0-1.0) k/uL Metamyelocytes # (Man) 0.11 H (0) k/uL Myelocytes # (Manual) 0.22 H (0) k/uL Promyelocytes # (Man) 0.11 H (0) k/uL PT 12.5 H (9.0-12.0) sec INR 1.2 H (<1.2) Sodium 126 L (137-145) mmol/L Chloride 91 L (98-107) mmol/L Glucose 150 H (74-99) mg/dL AST 42 H (14-36) U/L Alkaline Phosphatase 145 H (38-126) U/L Albumin 2.8 L (3.5-5.0) g/dL Amylase 226 H (30-110) U/L Lipase 392 H (23-300) U/L Urine Appearance (Clear) Urine Protein (Negative) Urine Ketones (Negative) Urine Blood (Negative) Urine Bilirubin (Negative) Urine WBC (0-5) /hpf Amorphous Sediment (None) /hpf Urine Bacteria (None) /hpf Urine Mucus (None) /hpf 07/10/21 Range/Units 12:45 WBC (3.8-10.6) k/uL RBC (3.80-5.40) m/uL Hgb (11.4-16.0) gm/dL Neutrophils # (Manual) (1.3-7.7) k/uL Monocytes # (Manual) (0-1.0) k/uL Metamyelocytes # (Man) (0) k/uL Myelocytes # (Manual) (0) k/uL Promyelocytes # (Man) (0) k/uL PT (9.0-12.0) sec INR (<1.2) Sodium (137-145) mmol/L Chloride (98-107) mmol/L Glucose (74-99) mg/dL AST (14-36) U/L Alkaline Phosphatase (38-126) U/L Albumin (3.5-5.0) g/dL Amylase (30-110) U/L Lipase (23-300) U/L Urine Appearance Cloudy H (Clear) Urine Protein 2+ H (Negative) Urine Ketones 1+ H (Negative) Urine Blood Trace H (Negative) Urine Bilirubin 1+ H (Negative) Urine WBC 7 H (0-5) /hpf Amorphous Sediment Occasional H (None) /hpf Urine Bacteria Rare H (None) /hpf Urine Mucus Few H (None) /hpf
[2021-07-10] MEDS: SODIUM CHLORIDE 0.9% 1,000 ML IV SCH (15:59)
[2021-07-10] MEDS ORDERED: PANTOPRAZOLE 40 MG TABLET PO SCH (17:30)
[2021-07-10] MEDS: PANTOPRAZOLE 40 MG/10 ML VIAL IVP SCH (20:40)
[2021-07-10] MEDS: NYSTATIN 100,000 UNIT/ML SUSP 500,000 UNIT/5 ML CUP PO SCH (20:41)
[2021-07-10] MEDS: HEPARIN SODIUM,PORCINE/PF 5,000 UNIT/0.5 ML SYRINGE SQ SCH (20:41)
[2021-07-11] MEDS: NYSTATIN 100,000 UNIT/ML SUSP 500,000 UNIT/5 ML CUP PO SCH ×5 (00:50→22:38)
[2021-07-11] MEDS: SODIUM CHLORIDE 0.9% 1,000 ML IV SCH ×3 (04:10→22:38)
[2021-07-11 07:53] LABS: Basophils # (A) 0.1 k/uL (0-0.2); Basophils % (A) 1 %; Eosinophils # (A) 0.1 k/uL (0-0.7); Eosinophils % (A) 0 %; HCT 35.7 % (34.0-46.0); HGB 11.2 gm/dL (11.4-16.0); Hypochromasia Slight; Lymphocytes # (A) 0.9 k/uL (1.0-4.8); Lymphocytes % (A) 5 %; MCH 30.1 pg (25.0-35.0); MCHC 31.3 g/dL (31.0-37.0); Mean Platelet Volume 9.7; Monocytes # (A) 1.4 k/uL (0-1.0); Monocytes % (A) 7 %; Neutrophils # (A) 15.7 k/uL (1.3-7.7); Neutrophils % (A) 85 %; Platelet Count 367 k/uL (150-450); RBC 3.72 m/uL (3.80-5.40); WBC 18.4 k/uL (3.8-10.6)
[2021-07-11] MEDS ORDERED: atenoloL 50 MG TAB PO SCH (09:00)
[2021-07-11 10:15] LABS: African American GFR (CKD) 67.5 (60.0-200.0); Albumin 2.8 g/dL (3.8-4.9); Albumin/Globulin Ratio 0.97 (1.60-3.17); Anion Gap 20.5 mmol/L (10.00-18.00); BUN/Creat Ratio 19.2 Ratio (12.00-20.00); Blood Urea Nitrogen 19.2 mg/dL (9.0-27.0); Calcium 9.2 mg/dL (8.7-10.3); Carbon Dioxide 21.5 mmol/L (20.0-27.5); Globulin 2.9 g/dL (1.6-3.3); Non-African American GFR(CKD) 58.2 (60.0-200.0); Potassium 3.6 mmol/L (3.5-5.5); Total Bilirubin 0.8 mg/dL (0.30-1.20); Total Protein 5.7 g/dL (6.2-8.2)
[2021-07-11] MEDS: HEPARIN SODIUM,PORCINE/PF 5,000 UNIT/0.5 ML SYRINGE SQ SCH (10:24)
[2021-07-11] MEDS: PANTOPRAZOLE 40 MG/10 ML VIAL IVP SCH ×2 (10:25→21:02)
[2021-07-11] MEDS ORDERED: HEPARIN SODIUM 1,000 UN/ML (10ML VL) IV ONE (11:07)
[2021-07-11 11:34] LABS: INR 1.2 (<1.2); Partial Thromboplastin Time 22.4 sec (22.0-30.0); Prothrombin Time 12.2 sec (9.0-12.0)
[2021-07-11] MEDS: METOPROLOL TARTRATE 25 MG TAB PO SCH ×3 (12:04→22:38)
[2021-07-11] MEDS: HEPARIN SOD,PORK IN 0.45% NACL 25,000 UNIT in 0.45% NACL 1 250ML.BAG IV SCH (12:12)
[2021-07-11] MEDS: PIPERACILLIN-TAZOBACTAM 3.375 GM in SODIUM CHLORIDE 0.9% 100 ML IVPB SCH ×3 (12:24→23:21)
--- NOTE | 2021-07-11 13:16 | P.CRDCN ---
History of Present Illness Consult date: 07/11/21 History of present illness: HISTORY OF PRESENT ILLNESS: This is a 66 year old with a past medical history significant for hypertension. Patient does not follow with a senior science consultant. We have been asked to see the patient in consultation for new onset afib with RVR. Patient examined at the bedside. The patient is admitted to the hospital secondary to pancreatitis. Patient was initially scheduled for outpatient cholecystectomy this coming week however she presented to the emergency room with increased abdominal pain. The patient went into A. fib with RVR today. The patient denies any palpitations. She denies any history of atrial fibrillation. She is prescribed atenolol on an outpatient basis. Blood pressure 106/67. She currently denies any chest pain or pressure. Denies shortness of breath. EKG reveals A. fib with RVR. EKG not scanned into [facility] at the time of this dictation. Laboratory data: WBC 18.4. Hemoglobin 11.2. Platelet count 367. Sodium 134. Potassium 3.6. BUN 19. Crit and 1.0. Lactic acid 1.7. Bilirubin 0.8. AST 40. ALT 30. Amylase 219. Lipase 68. Current home cardiac medications include atenolol 50 mg daily REVIEW OF SYSTEMS: At the time of my exam: CONSTITUTIONAL: Denies fever or chills. HEENT: Denies blurred vision, vision changes, or eye pain. Denies hemoptysis CARDIOVASCULAR: Denies chest pain. Denies orthopnea. Denies PND. Denies palpitations RESPIRATORY: Denies shortness of breath. GASTROINTESTINAL: + abdominal pain. HEMATOLOGIC: Denies bleeding disorders. GENITOURINARY: Denies any blood in urine. SKIN: Denies pruitis. Denies rash. PHYSICAL EXAM: VITAL SIGNS: Reviewed. GENERAL: Well-developed in no acute distress. HEENT: Head is normocephalic. Pupils are equal, round. Sclerae anicteric. Mucous membranes of the mouth are moist. Neck supple. No JVD or thyromegaly LUNGS: Respirations even and unlabored. Lungs essentially clear to auscultation bilaterally. HEART: Tachycardic. Irregular rate and rhythm. S1 and S2 heard. ABDOMEN: Soft. Nondistended. + tenderness EXTREMITIES: Normal range of motion. No clubbing or cyanosis. Peripheral pulses intact. No lower extremity edema NEUROLOGIC: Awake and alert. Oriented x 3. ASSESSMENT: Abdominal pain Pancreatitis Hyperkinetic gallbladder Leukocytosis New-onset atrial fibrillation with RVR Hypertension Hyponatremia, improving PLAN: Obtain 2D echo to assess cardiac structure and function Discontinue atenolol Begin metoprolol 25 mg 3 times a day Begin IV heparin. Await further input from surgical team regarding chol ecystectomy. If no plans for surgical intervention this admission, will discontinue IV heparin and begin Eliquis. Check TSH Begin telemetry monitoring Further recommendations pending patient course Nurse practitioner note has been reviewed by physician. Signing provider agrees with the documented findings, assessment, and plan of care. Past Medical History Past Medical History: GERD/Reflux, Hypertension Additional Past Medical History / Comment(s): FREQ DIARRHEA. DIFFICULTY SWALLOWING AT TIMES History of Any Multi-Drug Resistant Organisms: None Reported Past Surgical History: No Surgical Hx Reported Additional Past Surgical History / Comment(s): EGD Past Anesthesia/Blood Transfusion Reactions: No Reported Reaction Additional Past Anesthesia/Blood Transfusion Reaction / Comment(s): NO PRIOR GENERAL ANESTHESIA Smoking Status: Former smoker - Past Family History Father Family Medical History: Cancer Additional Family Medical History / Comment(s): Unsure of type of cancer Mother Family Medical History: Cancer, Coronary Artery Disease (CAD), Diabetes Mellitus, Hypertension Additional Family Medical History / Comment(s): Unsure of type of cancer Medications and Allergies Home Medications Medication Instructions Recorded Confirmed Type atenoloL [Tenormin] 50 mg PO DAILY 02/12/21 07/10/21 History Pantoprazole [Protonix] 40 mg PO AC-BID 30 Days #60 tab 06/20/21 07/10/21 Rx Nystatin 100,000 Unit/ml Susp 4 ml PO QID #200 ml 06/30/21 07/10/21 Rx [Mycostatin Oral Susp] Ondansetron [Zofran] 4 mg PO Q6H PRN 07/10/21 07/10/21 History Allergies Allergy/AdvReac Type Severity Reaction Status Date / Time No Known Allergies Allergy Verified 07/10/21 12:31 Physical Exam Vitals: Vital Signs Temp Pulse Pulse Resp BP BP BP 07/11/21 12:58 98.4 F 95 15 106/67 07/11/21 11:55 97.5 F L 136 H 20 110/74 07/11/21 07:31 97.5 F L 52 L 16 100/65 07/11/21 04:36 98.4 F 71 18 113/79 07/10/21 20:28 97.7 F 74 18 94/51 07/10/21 19:52 18 07/10/21 15:26 98.1 F 65 18 98/67 07/10/21 14:45 98.1 F 98 18 119/79 Pulse Ox 07/11/21 12:58 07/11/21 11:55 97 07/11/21 07:31 07/11/21 04:36 95 07/10/21 20:28 93 L 07/10/21 19:52 07/10/21 15:26 96 07/10/21 14:45 96 Intake and Output 07/10/21 07/11/21 07/11/21 22:59 06:59 14:59 Intake Total 300 700 Balance 300 700 Intake: Intake, IV Titration 300 700 Amount Sodium Chloride 0.9% 1, 300 700 000 ml @ 100 mls/hr IV . Q10H [facility] Rx#:[id number] Other: Voiding Method Toilet Toilet # Voids 6 Weight 89.358 kg Results 07/11/21 06:01 07/11/21 06:01 Cardiac Enzymes 07/11/21 Range/Units 06:01 AST 40 H (13-35) U/L Coagulation 07/11/21 Range/Units 06:01 PT 12.2 H (9.0-12.0) sec APTT 22.4 (22.0-30.0) sec CBC 07/11/21 Range/Units 06:01 WBC 18.4 H (3.8-10.6) k/uL RBC 3.72 L (3.80-5.40) m/uL Hgb 11.2 L (11.4-16.0) gm/dL Hct 35.7 (34.0-46.0) % Plt Count 367 (150-450) k/uL Comprehensive Metabolic Panel 07/11/21 Range/Units 06:01 Sodium 134 L (135-145) mmol/L Potassium 3.6 (3.5-5.5) mmol/L Chloride 92 L (96-109) mmol/L Carbon Dioxide 21.5 (20.0-27.5) mmol/L BUN 19.2 (9.0-27.0) mg/dL Creatinine 1.0 (0.6-1.5) mg/dL Glucose 129 H (70-110) mg/dL Calcium 9.2 (8.7-10.3) mg/dL AST 40 H (13-35) U/L ALT 30 (8-44) U/L Alkaline Phosphatase 226 H (41-126) U/L Total Protein 5.7 L (6.2-8.2) g/dL Albumin 2.8 L (3.8-4.9) g/dL Current Medications Generic Name Dose Route Start Last Admin Trade Name Freq PRN Reason Stop Dose Admin Heparin Sodium (Porcine) 0 unit 07/11/21 11:07 Heparin Sodium 1,000 Un/Ml (10ml Vl) IV PER PROTOCOL PRN Low PTT Protocol Hydromorphone HCl 0.5 mg 07/10/21 13:09 Hydromorphone 0.5 Mg/0.5 Ml Syringe IVP Q3HR PRN Moderate Pain Sodium Chloride 1,000 mls @ 100 mls/hr 07/10/21 13:15 07/11/21 12:39 Saline 0.9% IV Not Given .Q10H [facility] Piperacillin Sod/Tazobactam 100 mls @ 25 mls/hr 07/11/21 09:30 07/11/21 12:24 Sod 3.375 gm/ Sodium Chloride IVPB 25 mls/hr Q8HR [facility] Administration Heparin Sodium/Sodium Chloride 250 mls @ 10 mls/hr 07/11/21 11:15 07/11/21 12:12 25,000 unit/ Sodium Chloride IV 11.191 units/kg/hr .Q24H [facility] 10 mls/hr Administration Protocol 11.191 UNITS/KG/HR Metoprolol Tartrate 25 mg 07/11/21 11:15 07/11/21 12:04 Metoprolol Tartrate 25 Mg Tab PO 25 mg TID [facility] Administration Naloxone HCl 0.2 mg 07/10/21 13:09 Naloxone 0.4 Mg/Ml 1 Ml Vial IV Q2M PRN Opioid Reversal Nystatin 400,000 unit 07/10/21 18:00 07/11/21 10:24 Nystatin 100,000 Unit/Ml Susp 500,000 Unit/5 Ml Cup PO 400,000 unit QID [facility] Administration Ondansetron HCl 4 mg 07/10/21 14:16 Ondansetron 4 Mg/2 Ml Vial IVP Q6HR PRN Nausea And Vomiting Pantoprazole Sodium 40 mg 07/10/21 21:00 07/11/21 10:25 Pantoprazole 40 Mg/10 Ml Vial IVP 40 mg BID [facility] Administration Intake and Output 07/10/21 07/11/21 07/11/21 22:59 06:59 14:59 Intake Total 300 700 Balance 300 700 Intake: Intake, IV Titration 300 700 Amount Sodium Chloride 0.9% 1, 300 700 000 ml @ 100 mls/hr IV . Q10H [facility] Rx#:[id number] Other: Voiding Method Toilet Toilet # Voids 6 Weight 89.358 kg 07/11/21 06:01 07/11/21 06:01
[2021-07-11] MEDS ORDERED: DILTIAZEM DRIP BOLUS FROM BAG 1 MG SOLN IV ONE (13:27)
--- NOTE | 2021-07-11 13:43 | P.PN ---
Subjective Progress Note Date: 07/11/21 CHIEF COMPLAINT: Abdominal pain with nausea and vomiting HISTORY OF PRESENT ILLNESS: Patient reports that her abdominal pain is better today. She still feels nauseated. Afebrile. White count is up from 11.2-18.4. She's been started on antibiotics. She is currently nothing by mouth. Sodium has improved from 126-134 potassium is 3.6 creatinine 1.0 total bilirubin 0.80 AST 40 ALT 30 alk phos 226 lipase is down from 392-68 amylase 226 down to 219 patient did go into new onset atrial fibrillation with rapid ventricular response. Cardiology has been consult at this place her on IV heparin and meto prolol. Abdominal ultrasound shows sludge and/or small stones in gallbladder without secondary ultrasound evidence for acute cholecystitis. Suboptimal study particularly suboptimal evaluation of pancreas. Marked fatty infiltration of liver is redemonstrated. No new biliary dilatation noted. Patient seen and examined with Dr. campos PHYSICAL EXAM: VITAL SIGNS: Reviewed. GENERAL: Well-developed in no acute distress. HEENT: No sclera icterus. Extraocular movements grossly intact. Moist buccal mucosa. Head is atraumatic, normocephalic. ABDOMEN: Soft. Nondistended. Tenderness right upper quadrant epigastric area NEUROLOGIC: Alert and oriented. Cranial nerves II through XII grossly intact. ASSESSMENT: 1. Abdominal pain 2. Pancreatitis 3. Hyperkinetic gallbladder. Ultrasound evidence of sludge and/or small stones in gallbladder 4. Hyponatremia improving 5. New-onset atrial fibrillation with rapid ventricular response. Followed by cardiology service PLAN: -Advance diet to clear liquids -add IV antibiotics -Continue to monitor -Laparoscopic cholecystectomy possibly on Wednesday -Continue pain medication as needed -Continue IV fluids -GI prophylaxis Protonix and DVT prophylaxis subcu heparin Physician [employer] note has been reviewed by physician. Signing provider agrees with the documented findings, assessment, and plan of care. Objective - Vital Signs Vital signs: Vital Signs Temp 98.4 F 07/11/21 12:58 Pulse 95 07/11/21 12:58 Resp 15 07/11/21 12:58 BP 106/67 07/11/21 12:58 Pulse Ox 97 07/11/21 11:55 Intake & Output 07/10/21 07/11/21 07/11/21 18:59 06:59 18:59 Intake Total 300 700 Balance 300 700 Weight 89.358 kg Intake: Intake, IV Titration 300 700 Amount Sodium Chloride 0.9% 1, 300 700 000 ml @ 100 mls/hr IV . Q10H [facility] Rx#:[id number] Other: Voiding Method Toilet Toilet Toilet # Voids 6 - Labs CBC & Chem 7: 07/11/21 06:01 07/11/21 06:01 Labs: Abnormal Lab Results - Last 24 Hours (Table) 07/10/21 07/10/21 07/11/21 Range/Units 11:27 12:45 06:01 WBC 18.4 H (3.8-10.6) k/uL RBC 3.72 L (3.80-5.40) m/uL Hgb 11.2 L (11.4-16.0) gm/dL Neutrophils # 15.7 H (1.3-7.7) k/uL Neutrophils # (Manual) 8.80 H (1.3-7.7) k/uL Lymphocytes # 0.9 L (1.0-4.8) k/uL Monocytes # 1.4 H (0-1.0) k/uL Monocytes # (Manual) 1.01 H (0-1.0) k/uL Metamyelocytes # (Man) 0.11 H (0) k/uL Myelocytes # (Manual) 0.22 H (0) k/uL Promyelocytes # (Man) 0.11 H (0) k/uL PT (9.0-12.0) sec INR (<1.2) Sodium (135-145) mmol/L Chloride (96-109) mmol/L Anion Gap (10.00-18.00) mmol/L Est GFR (CKD-EPI)NonAf (60.0-200.0) Glucose (70-110) mg/dL AST (13-35) U/L Alkaline Phosphatase (41-126) U/L Total Protein (6.2-8.2) g/dL Albumin (3.8-4.9) g/dL Albumin/Globulin Ratio (1.60-3.17) g/dL Amylase (23-121) U/L Lipase (14-63) U/L Urine Appearance Cloudy H (Clear) Urine Protein 2+ H (Negative) Urine Ketones 1+ H (Negative) Urine Blood Trace H (Negative) Urine Bilirubin 1+ H (Negative) Urine WBC 7 H (0-5) /hpf Amorphous Sediment Occasional H (None) /hpf Urine Bacteria Rare H (None) /hpf Urine Mucus Few H (None) /hpf 07/11/21 07/11/21 Range/Units 06:01 06:01 WBC (3.8-10.6) k/uL RBC (3.80-5.40) m/uL Hgb (11.4-16.0) gm/dL Neutrophils # (1.3-7.7) k/uL Neutrophils # (Manual) (1.3-7.7) k/uL Lymphocytes # (1.0-4.8) k/uL Monocytes # (0-1.0) k/uL Monocytes # (Manual) (0-1.0) k/uL Metamyelocytes # (Man) (0) k/uL Myelocytes # (Manual) (0) k/uL Promyelocytes # (Man) (0) k/uL PT 12.2 H (9.0-12.0) sec INR 1.2 H (<1.2) Sodium 134 L (135-145) mmol/L Chloride 92 L (96-109) mmol/L Anion Gap 20.50 H (10.00-18.00) mmol/L Est GFR (CKD-EPI)NonAf 58.2 L (60.0-200.0) Glucose 129 H (70-110) mg/dL AST 40 H (13-35) U/L Alkaline Phosphatase 226 H (41-126) U/L Total Protein 5.7 L (6.2-8.2) g/dL Albumin 2.8 L (3.8-4.9) g/dL Albumin/Globulin Ratio 0.97 L (1.60-3.17) g/dL Amylase 219 H (23-121) U/L Lipase 68 H (14-63) U/L Urine Appearance (Clear) Urine Protein (Negative) Urine Ketones (Negative) Urine Blood (Negative) Urine Bilirubin (Negative) Urine WBC (0-5) /hpf Amorphous Sediment (None) /hpf Urine Bacteria (None) /hpf Urine Mucus (None) /hpf
[2021-07-11] MEDS: DILTIAZEM 125 MG in SODIUM CHLORIDE 0.9% 100 ML IV SCH (15:51)
--- NOTE | 2021-07-11 16:04 | P.PN ---
Subjective Progress Note Date: 07/11/21 History of Present Illness - Reason for Consult Hyponatremia - History of Present Illness Patient is 69-year-old female came in with the right upper and lower quadrant abdominal pain which started last night. Patient had similar pain in the past at the time patient was diagnosed with gastroenteritis subsequently patient had an upper GI endoscopy and had esophagitis as well. Patient also had a HIDA scan in the past which showed hypokinetic gallbladder at that time patient is scheduled to undergo cholecystectomy next Wednesday but comes in with increased abdominal pain and tachycardia. Patient has mildly elevated lipase not high enough to say pancreatitis. She does have leukocytosis. Patient is hyponatremic in the past of hyponatremia was believed to be hypovolemic hyponatremia and was treated with IV fluids with improvement in serum sodium. Patient was complaining of nausea vomiting his abdominal pain is presently 3- 09/2807/11/2021 Patient is seen and evaluated in follow-up this morning and per nursing staff heart rates have been jumping into the 120s down to 60s and EKG was ordered which shows atrial fibrillation with RVR and cardiology consulted. She denies any history of atrial fibrillation and has been maintained on atenolol which she states she takes for her blood pressure. WBC continues to be elevated at 18.4 and patient is currently maintained on IV Zosyn and will continue. Surgery following as attending and plans were to monitor the patient overnight and possible discharge and continue with outpatient cholecystectomy. Recommend repeat labs and will await cardiology evaluation. Labs: WBC is 18.4, hemoglobin is 11.2, platelets are 367, sodium is 134, potassium 3.6, BUN 19.2, creatinine 1.0, calcium 9.2, alk phos is 226, amylase is 219, lipase is 68 Review of systems: Constitutional: No reports of fatigue, fever, or chills Cardiovascular: No reports of chest pain or palpitations Respiratory: No reports of shortness of breath or cough GI: No reports of nausea, vomiting, or diarrhea : No reports of dysuria or retention Neurovascular: No reports of weakness or numbness All medications have been reviewed Active Medications Heparin Sodium (Porcine) (Heparin Sodium 1,000 Un/Ml (10ml Vl)) 0 unit IV PER PROTOCOL PRN; Protocol PRN Reason: Low PTT Hydromorphone HCl (Hydromorphone 0.5 Mg/0.5 Ml Syringe) 0.5 mg IVP Q3HR PRN PRN Reason: Moderate Pain Sodium Chloride (Saline 0.9%) 1,000 mls @ 100 mls/hr IV .Q10H [facility] Last Admin: 07/11/21 12:39 Dose: Not Given Documented by: Piperacillin Sod/Tazobactam (Sod 3.375 gm/ Sodium Chloride) 100 mls @ 25 mls/hr IVPB Q8HR [facility] Last Admin: 07/11/21 12:24 Dose: 25 mls/hr Documented by: Heparin Sodium/Sodium Chloride (25,000 unit/ Sodium Chloride) 250 mls @ 10 mls/hr IV .Q24H [facility]; Protocol Last Admin: 07/11/21 12:12 Dose: 11.191 units/kg/hr, 10 mls/hr Documented by: Diltiazem HCl 125 mg/ Sodium (Chloride) 125 mls @ 5 mls/hr IV .Q24H [facility] Metoprolol Tartrate (Metoprolol Tartrate 25 Mg Tab) 25 mg PO TID [facility] Last Admin: 07/11/21 12:04 Dose: 25 mg Documented by: Naloxone HCl (Naloxone 0.4 Mg/Ml 1 Ml Vial) 0.2 mg IV Q2M PRN PRN Reason: Opioid Reversal Nystatin (Nystatin 100,000 Unit/Ml Susp 500,000 Unit/5 Ml Cup) 400,000 unit PO QID [facility] Last Admin: 07/11/21 13:46 Dose: 400,000 unit Documented by: Ondansetron HCl (Ondansetron 4 Mg/2 Ml Vial) 4 mg IVP Q6HR PRN PRN Reason: Nausea And Vomiting Pantoprazole Sodium (Pantoprazole 40 Mg/10 Ml Vial) 40 mg IVP BID [facility] Last Admin: 07/11/21 10:25 Dose: 40 mg Documented by: PHYSICAL EXAMINATION: GENERAL: The patient is alert and oriented x3, not in any acute distress. Well developed, well nourished. HEENT: Pupils are round and equally reacting to light. EOMI. No scleral icterus. No conjunctival pallor. Normocephalic, atraumatic. No pharyngeal erythema. No thyromegaly. CARDIOVASCULAR: S1 and S2 present. No murmurs, rubs, or gallops. Irregularly irregular PULMONARY: Chest is clear to auscultation, no wheezing or crackles. ABDOMEN: Soft, nontender, nondistended, normoactive bowel sounds. No palpable organomegaly. MUSCULOSKELETAL: No joint swelling or deformity. EXTREMITIES: No cyanosis, clubbing, or pedal edema. NEUROLOGICAL: Gross neurological examination did not reveal any focal deficits. SKIN: No rashes. Assessment and plan: -Hyponatremia: Hypervolemic hyponatremia, improved and is 134 today after IV fluids and will discontinue normal saline -New onset atrial fibrillation with RVR, cardiology consulted and patient is being placed on IV heparin along with Cardizem -Right upper and lower quadrant abdominal pain etiology is not clear probably biliary sludge possibly pancreatitis is low as lipase is not high enough may have some mild inflammation of the pancreas. Patient is scheduled for outpatient cholecystectomy this Wednesday -Gastritis and esophagitis for which patient is on Protonix, gastritis improved -Leukocytosis reactive secondary to biliary sludge and pain -DVT prophylaxis: iv heparin Plan: Heart rate was jumping up and down an EKG was obtained showing atrial fibrillati on with RVR which is new onset and cardiology consulted. Recommend telemetry monitoring and patient is being started on IV heparin along with IV Cardizem and metoprolol. Atenolol being discontinued. Will verify coverage of oral anticoagulant as patient will need to be on for this new-onset atrial fib. Patient continues with leukocytosis and continued on IV Zosyn and Gen. surgery recommending close observation and possible discharge in 24 hours and will continue with scheduled outpatient cholecystectomy this Wednesday. Will continue to follow along with general surgery during hospitalization. Thank you for this consultation. Objective - Vital Signs Vital signs: Vital Signs Temp 97.5 F L 07/11/21 07:31 Pulse 52 L 07/11/21 07:31 Resp 16 07/11/21 07:31 BP 100/65 07/11/21 07:31 Pulse Ox 95 07/11/21 04:36 Intake & Output 07/10/21 07/11/21 07/11/21 18:59 06:59 18:59 Intake Total 300 700 Balance 300 700 Weight 89.358 kg Intake: Intake, IV Titration 300 700 Amount Sodium Chloride 0.9% 1, 300 700 000 ml @ 100 mls/hr IV . Q10H [facility] Rx#:[id number] Other: Voiding Method Toilet Toilet # Voids 6 - Labs CBC & Chem 7: 07/11/21 06:01 07/11/21 06:01 Labs: Abnormal Lab Results - Last 24 Hours (Table) 07/10/21 07/10/21 07/10/21 Range/Units 11:27 11:27 11:27 WBC 11.2 H (3.8-10.6) k/uL RBC 3.68 L (3.80-5.40) m/uL Hgb 11.3 L (11.4-16.0) gm/dL Neutrophils # (1.3-7.7) k/uL Neutrophils # (Manual) 8.80 H (1.3-7.7) k/uL Lymphocytes # (1.0-4.8) k/uL Monocytes # (0-1.0) k/uL Monocytes # (Manual) 1.01 H (0-1.0) k/uL Metamyelocytes # (Man) 0.11 H (0) k/uL Myelocytes # (Manual) 0.22 H (0) k/uL Promyelocytes # (Man) 0.11 H (0) k/uL PT 12.5 H (9.0-12.0) sec INR 1.2 H (<1.2) Sodium 126 L (137-145) mmol/L Chloride 91 L (98-107) mmol/L Glucose 150 H (74-99) mg/dL AST 42 H (14-36) U/L Alkaline Phosphatase 145 H (38-126) U/L Albumin 2.8 L (3.5-5.0) g/dL Amylase 226 H (30-110) U/L Lipase 392 H (23-300) U/L Urine Appearance (Clear) Urine Protein (Negative) Urine Ketones (Negative) Urine Blood (Negative) Urine Bilirubin (Negative) Urine WBC (0-5) /hpf Amorphous Sediment (None) /hpf Urine Bacteria (None) /hpf Urine Mucus (None) /hpf 07/10/21 07/11/21 Range/Units 12:45 06:01 WBC 18.4 H (3.8-10.6) k/uL RBC 3.72 L (3.80-5.40) m/uL Hgb 11.2 L (11.4-16.0) gm/dL Neutrophils # 15.7 H (1.3-7.7) k/uL Neutrophils # (Manual) (1.3-7.7) k/uL Lymphocytes # 0.9 L (1.0-4.8) k/uL Monocytes # 1.4 H (0-1.0) k/uL Monocytes # (Manual) (0-1.0) k/uL Metamyelocytes # (Man) (0) k/uL Myelocytes # (Manual) (0) k/uL Promyelocytes # (Man) (0) k/uL PT (9.0-12.0) sec INR (<1.2) Sodium (137-145) mmol/L Chloride (98-107) mmol/L Glucose (74-99) mg/dL AST (14-36) U/L Alkaline Phosphatase (38-126) U/L Albumin (3.5-5.0) g/dL Amylase (30-110) U/L Lipase (23-300) U/L Urine Appearance Cloudy H (Clear) Urine Protein 2+ H (Negative) Urine Ketones 1+ H (Negative) Urine Blood Trace H (Negative) Urine Bilirubin 1+ H (Negative) Urine WBC 7 H (0-5) /hpf Amorphous Sediment Occasional H (None) /hpf Urine Bacteria Rare H (None) /hpf Urine Mucus Few H (None) /hpf
[2021-07-12 02:48] LABS: HCT 33.9 % (34.0-46.0); MCH 30.4 pg (25.0-35.0); MCHC 32.4 g/dL (31.0-37.0); Mean Platelet Volume 8.6; Platelet Count 443 k/uL (150-450); RBC 3.61 m/uL (3.80-5.40); RDW 13.6 % (11.5-15.5); WBC 17.7 k/uL (3.8-10.6)
[2021-07-12 02:49] LABS: INR 1.1 (<1.2); Partial Thromboplastin Time 24.8 sec (22.0-30.0); Prothrombin Time 11.9 sec (9.0-12.0)
[2021-07-12 03:02] LABS: Calcium 8.4 mg/dL (8.4-10.2); Potassium 3.1 mmol/L (3.5-5.1)
[2021-07-12 03:15] LABS: Band Neutrophils % 32 %; Lymphocytes # (M) 1.59 k/uL (1.0-4.8); Monocytes # (M) 0.53 k/uL (0-1.0); Neutrophils % (M) 56 %; Nucleated Red Blood Cells 0 /100 WBC (0-0); Total Cells Counted 200
[2021-07-12 03:16] LABS: Toxic Granulation Present
[2021-07-12] MEDS: HEPARIN SODIUM 1,000 UN/ML (10ML VL) IV PRN ×2 (04:26→14:48)
[2021-07-12] MEDS: HEPARIN SOD,PORK IN 0.45% NACL 25,000 UNIT in 0.45% NACL 1 250ML.BAG IV SCH ×2 (06:56→22:19)
[2021-07-12] MEDS: PANTOPRAZOLE 40 MG/10 ML VIAL IVP SCH ×2 (08:47→19:56)
[2021-07-12] MEDS: METOPROLOL TARTRATE 25 MG TAB PO SCH (08:48)
[2021-07-12] MEDS: DILTIAZEM 125 MG in SODIUM CHLORIDE 0.9% 100 ML IV SCH (08:48)
[2021-07-12] MEDS: PIPERACILLIN-TAZOBACTAM 3.375 GM in SODIUM CHLORIDE 0.9% 100 ML IVPB SCH ×3 (08:49→23:56)
[2021-07-12] MEDS: NYSTATIN 100,000 UNIT/ML SUSP 500,000 UNIT/5 ML CUP PO SCH ×4 (08:54→19:56)
[2021-07-12] MEDS ORDERED: METOPROLOL TARTRATE 25 MG TAB PO STA (09:01)
[2021-07-12] MEDS ORDERED: Potassium Replacement Protocol 1 EACH MISC MISCELLANE PRN (11:35)
--- NOTE | 2021-07-12 11:49 | P.PN ---
Subjective Patient is 69-year-old female came in with the right upper and lower quadrant abdominal pain which started last night. Patient had similar pain in the past at the time patient was diagnosed with gastroenteritis subsequently patient had an upper GI endoscopy and had esophagitis as well. Patient also had a HIDA scan in the past which showed hypokinetic gallbladder at that time patient is scheduled to undergo cholecystectomy next Wednesday but comes in with increased abdominal pain and tachycardia. Patient has mildly elevated lipase not high en ough to say pancreatitis. She does have leukocytosis. Patient is hyponatremic in the past of hyponatremia was believed to be hypovolemic hyponatremia and was treated with IV fluids with improvement in serum sodium. Patient was comparing of nausea vomiting his abdominal pain is presently 3-09/2807/12/2021 Patient went into atrial fibrillation with rapid unclear rate was started on Cardizem drip, now received a metoprolol patient is rate controlled at this time soon atrial fibrillation on IV heparin drip. Patient will undergo cholecystectomy on the Wednesday patient had nausea vomiting last night. Patient remains on Zosyn. IV Cardizem was discontinued. Patient denied any other complaints at this time. Constitutional: Denied any fatigue denied any fever. Cardio vascular: denied any chest pain, palpitations Gastrointestinal as mentioned in the interval history Pulmonary: Denied any s hortness of breath cough Neurologic denied any new focal deficits All inpatient medications were reviewed and appropriate changes in these medications as dictated in the interval history and assessment and plan. PHYSICAL EXAMINATION: GENERAL: The patient is alert and oriented x3, not in any acute distress. Well developed, well nourished. HEENT: Pupils are round and equally reacting to light. EOMI. No scleral icterus. No conjunctival pallor. Normocephalic, atraumatic. No pharyngeal erythema. No thyromegaly. CARDIOVASCULAR: S1 and S2 present. No murmurs, rubs, or gallops. PULMONARY: Chest is clear to auscultation, no wheezing or crackles. ABDOMEN: Soft, nontender, nondistended, normoactive bowel sounds. No palpable organomegaly. MUSCULOSKELETAL: No joint swelling or deformity. EXTREMITIES: No cyanosis, clubbing, or pedal edema. NEUROLOGICAL: Gross neurological examination did not reveal any focal deficits. SKIN: No rashes. Assessment and plan -New-onset atrial fibrillation patient is presently on Lopressor Cardizem was discontinued, patient on IV heparin echo is pending -Hyponatremia: Hyporvolemic hyponatremia continue with the IV fluids and the recheck serum sodium tomorrow. -Right upper and lower quadrant abdominal pain etiology is not clear probably biliary sludge, possibly pancreatitis is low as lipase is not high enough may have some mild inflammation of the pancreas. -Gastritis and esophagitis for which patient is on Protonix -Leukocytosis reactive secondary to biliary sludge pain DVT prophylaxis: Subcutaneous heparin Objective - Vital Signs Vital signs: Vital Signs Temp 98.3 F 07/12/21 04:00 Pulse 106 H 07/12/21 08:00 Resp 16 07/12/21 08:00 BP 104/70 07/12/21 04:00 Pulse Ox 95 07/12/21 04:00 Intake & Output 07/11/21 07/12/21 07/12/21 18:59 06:59 18:59 Intake Total 360 221.828 84.75 Balance 360 221.828 84.75 Intake: Intake, IV Titration 221.828 84.75 Amount Diltiazem 125 mg In 84.75 Sodium Chloride 0.9% 100 ml @ 5 MG/HR 5 mls/hr IV .Q24H [facility] Rx#:[id number] Heparin Sod,Pork in 0.45% 221.828 NaCl 25,000 unit In 0.45 % NaCl 1 250ml.bag @ 11. 191 UNITS/KG/HR 10 mls/hr IV .Q24H [facility] Rx#: [id number] Oral 360 Other: Voiding Method Toilet Toilet Toilet # Voids 1 4 - Labs CBC & Chem 7: 07/12/21 02:11 07/12/21 02:11 Labs: Abnormal Lab Results - Last 24 Hours (Table) 07/12/21 07/12/21 Range/Units 02:11 02:11 WBC 17.7 H (3.8-10.6) k/uL RBC 3.61 L (3.80-5.40) m/uL Hgb 11.0 L (11.4-16.0) gm/dL Hct 33.9 L (34.0-46.0) % Neutrophils # (Manual) 15.50 H (1.3-7.7) k/uL Sodium 131 L (137-145) mmol/L Potassium 3.1 L (3.5-5.1) mmol/L Chloride 97 L (98-107) mmol/L BUN 25 H (7-17) mg/dL Creatinine 1.17 H (0.52-1.04) mg/dL Glucose 136 H (74-99) mg/dL
--- NOTE | 2021-07-12 12:49 | P.PN ---
Progress Note - Text Progress Note Date: 07/12/21 Patient feels better. She denies abdominal pain. On exam vital signs are stable. Abdomen soft. Resolving pancreatitis H fibrillation be monitored by cardiology. We'll plan for discharge home in the a.m. She scope for laparoscopic cholecystectomy on Wednesday
[2021-07-12] MEDS: 0.9% NACL WITH KCL 20 MEQ/L 1,000 ML IV SCH (13:06)
[2021-07-12] MEDS: POTASSIUM CHLORIDE 20 MEQ in WATER FOR INJECTION 1 100ML.BAG IVPB SCH ×3 (13:06→22:17)
--- NOTE | 2021-07-12 14:05 | P.PN ---
Subjective Progress Note Date: 07/12/21 This is a 66 year old with a past medical history significant for hypertension. Patient does not follow with a teaching fellow. We have been asked to see the patient in consultation for new onset afib with RVR. The patient is admitted to the hospital secondary to pancreatitis. Patient was initially scheduled for outpatient cholecystectomy this coming week however she presented to the emergency room with increased abdominal pain. The patient went into A. fib with RVR. She denies any history of atrial fibrillation. Patient is seen today resting comfortably in bed, she denies chest pain, palpitations, dyspnea, dizziness, neural focal deficits, or edema. Yesterday she was started on metoprolol 25 mg 3 times a day and remains on a Cardizem drip at 5. Will discontinue Cardizem drip and increased patient to Lopressor 50 mg twice a day. Patient remains on a heparin drip awaiting surgery to for a cholecystectomy. Patient is being checked for coverage for Eliquis, will await starting by mouth anticoagulation until cleared by the surgeon. Patient had a TSH which was normal. Potassium is low today at 3.1, supplement potassium. Patient's echocardiogram is pending. Objective - Vital Signs Vital signs: Vital Signs Temp 97.5 F L 07/12/21 12:29 Pulse 68 07/12/21 12:29 Resp 18 07/12/21 12:29 BP 108/71 07/12/21 12:29 Pulse Ox 96 07/12/21 12:29 Intake & Output 07/11/21 07/12/21 07/12/21 18:59 06:59 18:59 Intake Total 360 221.828 84.75 Balance 360 221.828 84.75 Intake: Intake, IV Titration 221.828 84.75 Amount Diltiazem 125 mg In 84.75 Sodium Chloride 0.9% 100 ml @ 5 MG/HR 5 mls/hr IV .Q24H [facility] Rx#:[id number] Heparin Sod,Pork in 0.45% 221.828 NaCl 25,000 unit In 0.45 % NaCl 1 250ml.bag @ 11. 191 UNITS/KG/HR 10 mls/hr IV .Q24H [facility] Rx#: [id number] Oral 360 Other: Voiding Method Toilet Toilet Toilet # Voids 1 4 - Exam PHYSICAL EXAM: VITAL SIGNS: Reviewed. GENERAL: Well-developed in no acute distress. HEENT: Head is normocephalic. Pupils are equal, round. Sclerae anicteric. Mucous membranes of the mouth are moist. NECK: Supple. No JVD or thyromegaly RESPIRATORY: Respirations even and unlabored. Lungs diminished to auscultation bilaterally. CARDIO: Irregular rate and rhythm. S1 and S2 heard. No murmur or anosis. Peripheral pulses intact. Negative for bilateral lower extremity edema NEURO: Orientated to person, time, mood is appropriate - Labs CBC & Chem 7: 07/12/21 02:11 07/12/21 02:11 Labs: Abnormal Lab Results - Last 24 Hours (Table) 07/12/21 07/12/21 Range/Units 02:11 02:11 WBC 17.7 H (3.8-10.6) k/uL RBC 3.61 L (3.80-5.40) m/uL Hgb 11.0 L (11.4-16.0) gm/dL Hct 33.9 L (34.0-46.0) % Neutrophils # (Manual) 15.50 H (1.3-7.7) k/uL Sodium 131 L (137-145) mmol/L Potassium 3.1 L (3.5-5.1) mmol/L Chloride 97 L (98-107) mmol/L BUN 25 H (7-17) mg/dL Creatinine 1.17 H (0.52-1.04) mg/dL Glucose 136 H (74-99) mg/dL Assessment and Plan Assessment: Abdominal pain Pancreatitis Hyperkinetic gallbladder Leukocytosis New-onset atrial fibrillation with RVR Hypertension Hyponatremia, improving Plan: Pending 2D echo to assess cardiac structure and function Discontinue atenolol Begin metoprolol 50 mg twice a day Discontinue Cardizem drip Continue withIV heparin. Await further input from surgical team regarding cholecystectomy. If no plans for surgical intervention this admission, will discontinue IV heparin and begin Eliquis. Continue with telemetry monitoring Further recommendations based on clinical course The above impression and plan of care have been discussed and directed by the signing physician. Myrna Steward, nurse practitioner, acting as scribe for signing physician.
--- NOTE | 2021-07-12 14:08 | ECHOF ---
Referral Reason:lv function, afib MEASUREMENTS -------- HEIGHT: 170.2 cm WEIGHT: 89.4 kg BP: 100/65 RVIDd: 3.1 cm (< 3.3) IVSd: 1.0 cm (0.6 - 1.1) LVIDd: 3.4 cm (3.9 - 5.3) LVPWd: 1.1 cm (0.6 - 1.1) IVSs: 1.6 cm LVIDs: 2.1 cm LVPWs: 1.5 cm LA Diam: 3.6 cm (2.7 - 3.8) LAESV Index (A-L): 25.79 ml/m Ao Diam: 3.0 cm (2.0 - 3.7) AV Cusp: 1.9 cm (1.5 - 2.6) MV EXCURSION: 17.007 mm (> 18.000) MV EF SLOPE: 143 mm/s (70 - 150) EPSS: 1.1 cm RAP: 5.00 mmHg RVSP: 31.05 mmHg FINDINGS -------- Atrial fibrillation. This was a technically adequate study. The left ventricular size is normal. Left ventricular wall thickness is normal. Overall left vent ricular systolic function is low-normal with, an EF between 50 - 55 %. The right ventricle is normal in size. Normal LA size by volume 22+/-6 ml/m2. The right atrium is normal in size. The aortic valve is trileaflet, and appears structurally normal. No aortic stenosis or regurgitation. Mild mitral regurgitation is present. Mild tricuspid regurgitation present. Right ventricular systolic pressure is normal at < 35 mmHg. The pulmonic valve is normal. The aortic root size is normal. IVC Not well visulized. There is no pericardial effusion. CONCLUSIONS -------- 1. This was a technically adequate study. 2. The left ventricular size is normal. 3. Left ventricular wall thickness is normal. 4. Overall left ventricular systolic function is low-normal with, an EF between 50 - 55 %. 5. Mild mitral regurgitation is present. 6. Mild tricuspid regurgitation present. 7. There is no pericardial effusion. ICICLE MACHINE OPERATOR: Jennifer Hunter [facility]
[2021-07-12] MEDS: SODIUM CHLORIDE 0.9% 1,000 ML IV SCH (17:54)
[2021-07-12] MEDS: METOPROLOL TARTRATE 50 MG TAB PO SCH (19:57)
[2021-07-13] MEDS: POTASSIUM CHLORIDE 20 MEQ in WATER FOR INJECTION 1 100ML.BAG IVPB SCH (01:29)
[2021-07-13] MEDS: 0.9% NACL WITH KCL 20 MEQ/L 1,000 ML IV SCH ×3 (08:05→19:00)
[2021-07-13] MEDS: NYSTATIN 100,000 UNIT/ML SUSP 500,000 UNIT/5 ML CUP PO SCH ×4 (08:58→21:03)
[2021-07-13] MEDS: PANTOPRAZOLE 40 MG/10 ML VIAL IVP SCH ×2 (08:58→21:03)
[2021-07-13] MEDS: METOPROLOL TARTRATE 50 MG TAB PO SCH ×3 (08:59→21:03)
[2021-07-13] MEDS: PIPERACILLIN-TAZOBACTAM 3.375 GM in SODIUM CHLORIDE 0.9% 100 ML IVPB SCH ×2 (08:59→17:07)
[2021-07-13] MEDS: HEPARIN SOD,PORK IN 0.45% NACL 25,000 UNIT in 0.45% NACL 1 250ML.BAG IV SCH ×2 (09:02→22:38)
--- NOTE | 2021-07-13 12:16 | P.PN ---
Progress Note - Text Progress Note Date: 07/13/21 Patient continues to have issues with rapid ventricular rate. Nursing states her pulse in the 160s. On exam vital signs appear stable. Abdomen is soft. Patient fibrillation with rapid ventricular rate. Cholecystitis Patient scheduled for laparoscopic colostomy on Wednesday provided she is cleared by cardiology.
--- NOTE | 2021-07-13 12:27 | P.PN ---
Subjective Patient is 69-year-old female came in with the right upper and lower quadrant abdominal pain which started last night. Patient had similar pain in the past at the time patient was diagnosed with gastroenteritis subsequently patient had an upper GI endoscopy and had esophagitis as well. Patient also had a HIDA scan in the past which showed hypokinetic gallbladder at that time patient is scheduled to undergo cholecystectomy next Wednesday but comes in with increased abdominal pain and tachycardia. Patient has mildly elevated lipase not high en ough to say pancreatitis. She does have leukocytosis. Patient is hyponatremic in the past of hyponatremia was believed to be hypovolemic hyponatremia and was treated with IV fluids with improvement in serum sodium. Patient was comparing of nausea vomiting his abdominal pain is presently 3-09/2807/12/2021 Patient went into atrial fibrillation with rapid unclear rate was started on Cardizem drip, now received a metoprolol patient is rate controlled at this time soon atrial fibrillation on IV heparin drip. Patient will undergo cholecystectomy on the Wednesday patient had nausea vomiting last night. Patient remains on Zosyn. IV Cardizem was discontinued. Patient denied any other complaints at this time. 07/13/2021 Patient the remains in A. fib with rapid unclear rate dose of metoprolol is being increased at this time patient remains on IV heparin. Echo showed normal ejection fraction no significant abnormality. Patient is asymptomatic from this atrial fibrillation. Constitutional: Denied any fatigue denied any fever. Cardio vascular: denied any chest pain, palpitations Gastrointestinal as mentioned in the interval history Pulmonary: Denied any shortness of breath cough Neurologic denied any new focal deficits All inpatient medications were reviewed and appropriate changes in these medications as dictated in the interval history and assessment and plan. PHYSICAL EXAMINATION: GENERAL: The patient is alert and oriented x3, not in any acute distress. Well developed, well nourished. HEENT: Pupils are round and equally reacting to light. EOMI. No scleral icterus. No conjunctival pallor. Normocephalic, atraumatic. No pharyngeal erythema. No thyromegaly. CARDIOVASCULAR: S1 and S2 present. No murmurs, rubs, or gallops. PULMONARY: Chest is clear to auscultation, no wheezing or crackles. ABDOMEN: Soft, nontender, nondistended, normoactive bowel sounds. No palpable organomegaly. MUSCULOSKELETAL: No joint swelling or deformity. EXTREMITIES: No cyanosis, clubbing, or pedal edema. NEUROLOGICAL: Gross neurological examination did not reveal any focal deficits. SKIN: No rashes. Assessment and plan -New-onset atrial fibrillation patient is presently on Lopressor, dose of which is being increased echocardiogram normal ejection fraction -Hyponatremia: Hyporvolemic hyponatremia continue with the IV fluids and the recheck serum basic metabolic profile tomorrow -Right upper and lower quadrant abdominal pain etiology is not clear probably biliary sludge, possibly pancreatitis is low as lipase is not high enough may have some mild inflammation of the pancreas. -Gastritis and esophagitis for which patient is on Protonix -Leukocytosis reactive secondary to biliary sludge pain DVT prophylaxis: On IV heparin Objective - Vital Signs Vital signs: Vital Signs Temp 97.8 F 07/13/21 12:10 Pulse 142 H 07/13/21 12:10 Resp 20 07/13/21 12:10 BP 95/62 07/13/21 12:10 Pulse Ox 93 L 07/13/21 12:10 Intake & Output 07/12/21 07/13/21 07/13/21 18:59 06:59 18:59 Intake Total 1303.037 288.077 273.323 Balance 1303.037 288.077 273.323 Intake: Intake, IV Titration 1303.037 288.077 33.323 Amount 0.9% NaCl with KCl 20 Meq 400 /l 1,000 ml @ 100 mls/hr IV .Q10H [facility] Rx#: [id number] Diltiazem 125 mg In 84.75 Sodium Chloride 0.9% 100 ml @ 5 MG/HR 5 mls/hr IV .Q24H [facility] Rx#:[id number] Heparin Sod,Pork in 0.45% 118.287 288.077 33.323 NaCl 25,000 unit In 0.45 % NaCl 1 250ml.bag @ 11. 191 UNITS/KG/HR 10 mls/hr IV .Q24H [facility] Rx#: [id number] Piperacillin-Tazobactam 3 200 .375 gm In Sodium Chloride 0.9% 100 ml @ 25 mls/hr IVPB Q8HR [facility] Rx# :[id number] Potassium Chloride 20 meq 100 In Water For Injection 1 100ml.bag @ 50 mls/hr IVPB Q2HR [facility] Rx#: [id number] Sodium Chloride 0.9% 1, 400 000 ml @ 100 mls/hr IV . Q10H [facility] Rx#:[id number] Oral 240 Other: Voiding Method Toilet Toilet Toilet # Voids 2 # Bowel Movements 1 - Labs CBC & Chem 7: 07/12/21 02:11 07/12/21 02:11 Labs: Abnormal Lab Results - Last 24 Hours (Table) 07/12/21 07/13/21 Range/Units 22:17 05:53 APTT 45.0 H 66.8 H (22.0-30.0) sec
--- NOTE | 2021-07-13 13:41 | P.PN ---
Subjective Progress Note Date: 07/13/21 This is a 66 year old with a past medical history significant for hypertension. 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 We have been asked to see the patient in consultation for new onset afib with RVR. The patient is admitted to the hospital secondary to pancreatitis. Patient was initially scheduled for outpatient cholecystectomy this coming week however she presented to the emergency room with increased abdominal pain. The patient went into A. fib with RVR. She denies any history of atrial fibrillation. Patient is examined today resting in bed, she had just gotten up and went for a walk with the nurse. Patient's heart rate is elevated with activity ranging from 150-160. She has a symptomatic with elevated heart rate, she denies chest pain, palpitations, dizziness, dyspnea. Patient remains in A. fib. Will increase Lopressor to 50 mg TID. Start digoxin 0.125 daily. Patient remains on a heparin drip awaiting surgery to for a cholecystectomy on wednesday. Patient is being checked for coverage for Eliquis, will await starting by mouth anticoagulation until cleared by the surgeon. Echocardiogram shows a normal LV function with an ejection fraction of 55% with mild mitral and tricuspid regurgitation Objective - Vital Signs Vital signs: Vital Signs Temp 97.8 F 07/13/21 12:10 Pulse 142 H 07/13/21 12:10 Resp 20 07/13/21 12:10 BP 95/62 07/13/21 12:10 Pulse Ox 93 L 07/13/21 12:10 Intake & Output 07/12/21 07/13/21 07/13/21 18:59 06:59 18:59 Intake Total 1303.037 288.077 273.323 Balance 1303.037 288.077 273.323 Intake: Intake, IV Titration 1303.037 288.077 33.323 Amount 0.9% NaCl with KCl 20 Meq 400 /l 1,000 ml @ 100 mls/hr IV .Q10H [facility] Rx#: [id number] Diltiazem 125 mg In 84.75 Sodium Chloride 0.9% 100 ml @ 5 MG/HR 5 mls/hr IV .Q24H [facility] Rx#:[id number] Heparin Sod,Pork in 0.45% 118.287 288.077 33.323 NaCl 25,000 unit In 0.45 % NaCl 1 250ml.bag @ 11. 191 UNITS/KG/HR 10 mls/hr IV .Q24H [facility] Rx#: [id number] Piperacillin-Tazobactam 3 200 .375 gm In Sodium Chloride 0.9% 100 ml @ 25 mls/hr IVPB Q8HR [facility] Rx# :[id number] Potassium Chloride 20 meq 100 In Water For Injection 1 100ml.bag @ 50 mls/hr IVPB Q2HR [facility] Rx#: [id number] Sodium Chloride 0.9% 1, 400 000 ml @ 100 mls/hr IV . Q10H [facility] Rx#:[id number] Oral 240 Other: Voiding Method Toilet Toilet Toilet # Voids 2 # Bowel Movements 1 - Exam PHYSICAL EXAM: VITAL SIGNS: Reviewed. GENERAL: Well-developed in no acute distress. HEENT: Head is normocephalic. Pupils are equal, round. Sclerae anicteric. Mucous membranes of the mouth are moist. NECK: Supple. No JVD or thyromegaly RESPIRATORY: Respirations even and unlabored. Lungs diminished to auscultation bilaterally. CARDIO: Irregular rate and rhythm. S1 and S2 heard. No murmur or anosis. Peripheral pulses intact. Negative for bilateral lower extremity edema NEURO: Orientated to person, time, mood is appropriate - Labs CBC & Chem 7: 07/12/21 02:11 07/12/21 02:11 Labs: Abnormal Lab Results - Last 24 Hours (Table) 07/12/21 07/13/21 Range/Units 22:17 05:53 APTT 45.0 H 66.8 H (22.0-30.0) sec Assessment and Plan Assessment: Abdominal pain Pancreatitis Hyperkinetic gallbladder Leukocytosis New-onset atrial fibrillation with RVR Hypertension Hyponatremia, improving Plan: 2-D echo obtained and revealed Increase metoprolol to 3 times a day Start digoxin 0.125 mg daily Continue withIV heparin. Await further input from surgical team regarding cholecystectomy. If no plans for surgical intervention this admission, will discontinue IV heparin and begin Eliquis. Continue with telemetry monitoring Further recommendations based on clinical course The above impression and plan of care have been discussed and directed by the signing physician. Myrna Steward, nurse practitioner, acting as scribe for signi physician.
[2021-07-13] MEDS: DIGOXIN 125 MCG TAB PO SCH (14:13)
[2021-07-14] MEDS: PIPERACILLIN-TAZOBACTAM 3.375 GM in SODIUM CHLORIDE 0.9% 100 ML IVPB SCH ×3 (01:14→17:31)
[2021-07-14] MEDS: 0.9% NACL WITH KCL 20 MEQ/L 1,000 ML IV SCH ×2 (04:00→16:57)
[2021-07-14] MEDS: PANTOPRAZOLE 40 MG/10 ML VIAL IVP SCH ×2 (08:31→20:27)
[2021-07-14] MEDS: DIGOXIN 125 MCG TAB PO SCH (08:31)
[2021-07-14] MEDS: METOPROLOL TARTRATE 50 MG TAB PO SCH ×3 (08:31→20:27)
[2021-07-14] MEDS: NYSTATIN 100,000 UNIT/ML SUSP 500,000 UNIT/5 ML CUP PO SCH ×4 (08:40→20:27)
[2021-07-14 09:44] LABS: HCT 36.9 % (34.0-46.0); HGB 11.4 gm/dL (11.4-16.0); Hypochromasia Moderate; MCH 30.1 pg (25.0-35.0); MCHC 30.7 g/dL (31.0-37.0); Mean Platelet Volume 7.6; Platelet Count 456 k/uL (150-450); RBC 3.77 m/uL (3.80-5.40); RDW 14.4 % (11.5-15.5); WBC 10.2 k/uL (3.8-10.6)
[2021-07-14 09:59] LABS: Albumin 2.3 g/dL (3.5-5.0); Calcium 8.4 mg/dL (8.4-10.2); Potassium 3.9 mmol/L (3.5-5.1); Total Bilirubin 0.9 mg/dL (0.2-1.3); Total Protein 5.6 g/dL (6.3-8.2)
--- NOTE | 2021-07-14 11:21 | P.PN ---
Subjective Progress Note Date: 07/14/21 HISTORY OF PRESENT ILLNESS: 07/11/2021 This is a 66 year old with a past medical history significant for hypertension. 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 We have been asked to see the patient in consultation for new onset afib with RVR. Patient examined at the bedside. The patient is admitted to the hospital secondary to pancreatitis. Patient was initially scheduled for outpatient cholecystectomy this coming week however she presented to the emergency room with increased abdominal pain. The patient went into A. fib with RVR today. The patient denies any palpitations. She denies any history of atrial fibrillation. She is prescribed atenolol on an outpatient basis. Blood pressure 106/67. She currently denies any chest pain or pressure. Denies shortness of breath. EKG reveals A. fib with RVR. EKG not scanned into [employer] at the time of this dictation. Laboratory data: WBC 18.4. Hemoglobin 11.2. Platelet count 367. Sodium 134. Potassium 3.6. BUN 19. Crit and 1.0. Lactic acid 1.7. Bilirubin 0.8. AST 40. ALT 30. Amylase 219. Lipase 68. Current home cardiac medications include atenolol 50 mg daily 07/14/2021 Patient examined this morning at the bedside. Patient denies chest pain or pressure. Denies SOB. Denies palpitations. Patient remains in A. fib with RVR. She remains on IV heparin. Echocardiogram completed revealed ejection fraction 50-55%, mild mitral regurgitation, and mild tricuspid regurgitation. PHYSICAL EXAM: VITAL SIGNS: Reviewed. GENERAL: Well-developed in no acute distress. HEENT: Head is normocephalic. Pupils are equal, round. Sclerae anicteric. Mucous membranes of the mouth are moist. Neck supple. No JVD or thyromegaly LUNGS: Respirations even and unlabored. Lungs essentially clear to auscultation bilaterally. HEART: Tachycardic. Irregular rate and rhythm. S1 and S2 heard. EXTREMITIES: Normal range of motion. No clubbing or cyanosis. Peripheral pulses intact. No lower extremity edema ASSESSMENT: Abdominal pain Pancreatitis Hyperkinetic gallbladder Leukocytosis New-onset persistent atrial fibrillation with RVR Hypertension Hyponatremia, improving PLAN: Continue current cardiac medications including metoprolol and digoxin Begin telemetry monitoring. If patients heart rates do not improve, will consider LEONEL/CV Continue IV heparin. Transition to Eliquis after surgical intervention. Patient currently not stable to undergo surgery from a cardiac standpoint until her heart rates are controlled Further recommendations pending patient course Nurse practitioner note has been reviewed by physician. Signing provider agrees with the documented findings, assessment, and plan of care. Objective - Vital Signs Vital signs: Vital Signs Temp 97.5 F L 07/14/21 08:00 Pulse 95 07/14/21 08:00 Resp 20 07/14/21 08:00 BP 106/59 07/14/21 08:00 Pulse Ox 94 L 07/14/21 08:00 Intake & Output 07/13/21 07/14/21 07/14/21 18:59 06:59 18:59 Intake Total 1953.323 436.004 240 Balance 1953.323 436.004 240 Intake: Intake, IV Titration 33.323 316.004 Amount Heparin Sod,Pork in 0.45% 33.323 316.004 NaCl 25,000 unit In 0.45 % NaCl 1 250ml.bag @ 11. 191 UNITS/KG/HR 10 mls/hr IV .Q24H [facility] Rx#: [id number] Oral 1920 120 240 Other: Voiding Method Toilet Toilet # Voids 3 2 # Bowel Movements 0 - Labs CBC & Chem 7: 07/14/21 09:14 07/14/21 09:14 Labs: Abnormal Lab Results - Last 24 Hours (Table) 07/13/21 07/14/21 07/14/21 Range/Units 20:11 01:54 09:14 RBC (3.80-5.40) m/uL MCHC (31.0-37.0) g/dL Plt Count (150-450) k/uL APTT 39.5 H 41.7 H 53.2 H (22.0-30.0) sec Sodium (137-145) mmol/L Carbon Dioxide (22-30) mmol/L Creatinine (0.52-1.04) mg/dL Glucose (74-99) mg/dL Alkaline Phosphatase (38-126) U/L Total Protein (6.3-8.2) g/dL Albumin (3.5-5.0) g/dL 07/14/21 07/14/21 Range/Units 09:14 09:14 RBC 3.77 L (3.80-5.40) m/uL MCHC 30.7 L (31.0-37.0) g/dL Plt Count 456 H (150-450) k/uL APTT (22.0-30.0) sec Sodium 135 L (137-145) mmol/L Carbon Dioxide 19 L (22-30) mmol/L Creatinine 1.29 H (0.52-1.04) mg/dL Glucose 100 H (74-99) mg/dL Alkaline Phosphatase 381 H (38-126) U/L Total Protein 5.6 L (6.3-8.2) g/dL Albumin 2.3 L (3.5-5.0) g/dL
[2021-07-14 12:51] LABS: Band Neutrophils % 4 %; Large Platelets Present; Lymphocytes # (M) 1.22 k/uL (1.0-4.8); Metamyelocytes % 2 %; Monocytes # (M) 1.02 k/uL (0-1.0); Myelocytes # (M) 0.41 k/uL (0); Myelocytes % 4 %; Neutrophils % (M) 70 %; Nucleated Red Blood Cells 0 /100 WBC (0-0); Total Cells Counted 200
--- NOTE | 2021-07-14 14:50 | P.PN ---
Subjective Progress Note Date: 07/14/21 Patient is 69-year-old female came in with the right upper and lower quadrant abdominal pain which started last night. Patient had similar pain in the past at the time patient was diagnosed with gastroenteritis subsequently patient had an upper GI endoscopy and had esophagitis as well. Patient also had a HIDA scan in the past which showed hypokinetic gallbladder at that time patient is scheduled to undergo cholecystectomy next Wednesday but comes in with increased abdominal pain and tachycardia. Patient has mildly elevated lipase not high enough to say pancreatitis. She does have leukocytosis. Patient is hyponatremic in the past of hyponatremia was believed to be hypovolemic hyponatremia and was treated with IV fluids with improvement in serum sodium. Patient was comparing of nausea vomiting his abdominal pain is presently 3-/07/12/2021 Patient went into atrial fibrillation with rapid unclear rate was started on Cardizem drip, now received a metoprolol patient is rate controlled at this time soon atrial fibrillation on IV heparin drip. Patient will undergo cholecystectomy on the Wednesday patient had nausea vomiting last night. Patient remains on Zosyn. IV Cardizem was discontinued. Patient denied any other complaints at this time. 07/13/2021 Patient the remains in A. fib with rapid unclear rate dose of metoprolol is being increased at this time patient remains on IV heparin. Echo showed normal ejection fraction no significant abnormality. Patient is asymptomatic from this atrial fibrillation. 07/14/2021 Patient evaluated today resting in bed, Continues in afib with heart rate of 102, on IV push Digoxin daily as well as lopresser. Still on IV heparin, further medication adjustments from cardiology for better heart rate control prior to surgery. Cardiology considering possible LEONEL/cardioversion pending progress. Lap Fern once heat rate stable, than transition to eliquis postoperatively.. Labs reviewed today 135, potassium 3.9, chloride 106, CO2 19, BUN 15, Creatinine 1.29, glucose 100, AST and ALT WNL and Alk Phos 381. Patient is complaining of loose stool. ROS Constitutional: Denied any fatigue denied any fever. Cardio vascular: denied any chest pain, palpitations Gastrointestinal: denied any nausea vomiting Pulmonary: Denied any shortness of breath cough Neurologic denied any new focal deficits All inpatient medications were reviewed and appropriate changes in these medications as dictated in the interval history and assessment and plan. PHYSICAL EXAMINATION: GENERAL: The patient is alert and oriented x3, not in any acute distress. Well developed, well nourished. HEENT: Pupils are round and equally reacting to light. EOMI. No scleral icterus. No conjunctival pallor. Normocephalic, atraumatic. No pharyngeal erythema. No thyromegaly. CARDIOVASCULAR: S1 and S2 present. No murmurs, rubs, or gallops. PULMONARY: Chest is clear to auscultation, no wheezing or crackles. ABDOMEN: Soft, nontender, nondistended, normoactive bowel sounds. No palpable organomegaly. MUSCULOSKELETAL: No joint swelling or deformity. EXTREMITIES: No cyanosis, clubbing, or pedal edema. NEUROLOGICAL: Gross neurological examination did not reveal any focal deficits. SKIN: No rashes. Assessment and plan -New-onset atrial fibrillation patient is presently on Lopressor, dose of which is being increased echocardiogram normal ejection fraction, also on IVP Digoxin, possible LEONEL cardioversion -Hyponatremia: Hyporvolemic hyponatremia continue with the IV fluids, improving -Mildly elevated creatinine most likely prerenal, continue with IV fluids -Right upper and lower quadrant abdominal pain etiology is not clear probably biliary sludge, possibly pancreatitis is low as lipase is not high enough may have some mild inflammation of the pancreas. Abdominal pain improving, patient will undergo Lap Cholecystectomy once medically stable. -Gastritis and esophagitis for which patient is on Protonix -Leukocytosis reactive secondary to biliary sludge pain DVT prophylaxis: On IV heparin Objective - Vital Signs Vital signs: Vital Signs Temp 97.7 F 07/14/21 11:39 Pulse 98 07/14/21 11:39 Resp 20 07/14/21 11:39 BP 106/70 07/14/21 11:39 Pulse Ox 94 L 07/14/21 11:39 Intake & Output 07/13/21 07/14/21 07/14/21 18:59 06:59 18:59 Intake Total 1952.323 436.004 240 Balance 1952.323 436.004 240 Intake: Intake, IV Titration 33.323 316.004 Amount Heparin Sod,Pork in 0.45% 33.323 316.004 NaCl 25,000 unit In 0.45 % NaCl 1 250ml.bag @ 11. 191 UNITS/KG/HR 10 mls/hr IV .Q24H [facility] Rx#: [id number] Oral 1920 120 240 Other: Voiding Method Toilet Toilet # Voids 3 2 # Bowel Movements 0 - Labs CBC & Chem 7: 07/14/21 09:14 07/14/21 09:14 Labs: Abnormal Lab Results - Last 24 Hours (Table) 07/13/21 07/14/21 07/14/21 Range/Units 20:11 01:54 09:14 RBC (3.80-5.40) m/uL MCHC (31.0-37.0) g/dL Plt Count (150-450) k/uL Monocytes # (Manual) (0-1.0) k/uL Metamyelocytes # (Man) (0) k/uL Myelocytes # (Manual) (0) k/uL APTT 39.5 H 41.7 H 53.2 H (22.0-30.0) sec Sodium (137-145) mmol/L Carbon Dioxide (22-30) mmol/L Creatinine (0.52-1.04) mg/dL Glucose (74-99) mg/dL Alkaline Phosphatase (38-126) U/L Total Protein (6.3-8.2) g/dL Albumin (3.5-5.0) g/dL 07/14/21 07/14/21 Range/Units 09:14 09:14 RBC 3.77 L (3.80-5.40) m/uL MCHC 30.7 L (31.0-37.0) g/dL Plt Count 456 H (150-450) k/uL Monocytes # (Manual) 1.02 H (0-1.0) k/uL Metamyelocytes # (Man) 0.20 H (0) k/uL Myelocytes # (Manual) 0.41 H (0) k/uL APTT (22.0-30.0) sec Sodium 135 L (137-145) mmol/L Carbon Dioxide 19 L (22-30) mmol/L Creatinine 1.29 H (0.52-1.04) mg/dL Glucose 100 H (74-99) mg/dL Alkaline Phosphatase 381 H (38-126) U/L Total Protein 5.6 L (6.3-8.2) g/dL Albumin 2.3 L (3.5-5.0) g/dL
--- NOTE | 2021-07-14 15:58 | P.PN ---
Subjective Progress Note Date: 07/14/21 CHIEF COMPLAINT: Abdominal pain with nausea and vomiting HISTORY OF PRESENT ILLNESS: Patient reports that she has minimal right upper quadrant abdominal pain but it is improving. Denies any nausea or vomiting. She is having diarrhea. She has been in A. fib RVR with fluctuating heart rate. She is followed by cardiology. They've adjusted medication. He she has converted to sinus rhythm. Per nursing staff cardiology has cleared patient for surgery tomorrow. Afebrile. WBC 10.2 hemoglobin 11.4 PHYSICAL EXAM: VITAL SIGNS: Reviewed. GENERAL: Well-developed in no acute distress. HEENT: No sclera icterus. Extraocular movements grossly intact. Moist buccal mucosa. Head is atraumatic, normocephalic. ABDOMEN: Soft. Nondistended. Tenderness right upper quadrant epigastric area NEUROLOGIC: Alert and oriented. Cranial nerves II through XII grossly intact. ASSESSMENT: 1. Abdominal pain 2. Pancreatitis 3. Cholecystitis. Hyperkinetic gallbladder. Ultrasound evidence of sludge and/or small stones in gallbladder 4. Hyponatremia improving 5. New-onset atrial fibrillation with rapid ventricular response. Followed by cardiology service PLAN: -Patient scheduled for laparoscopic cholecystectomy tomorrow -Nothing by mouth after midnight -Hold IV heparin at 0800 AM for surgery Physician [employer] Operator note has been reviewed by physician. Signing provider agrees with the documented findings, assessment, and plan of care. Objective - Vital Signs Vital signs: Vital Signs Temp 97.7 F 07/14/21 11:39 Pulse 98 07/14/21 11:39 Resp 20 07/14/21 11:39 BP 106/70 07/14/21 11:39 Pulse Ox 94 L 07/14/21 11:39 Intake & Output 07/13/21 07/14/21 07/14/21 18:59 06:59 18:59 Intake Total 1952.323 416.888 3523.56 Balance 1952.323 249.852 6148.56 Intake: IV 158.56 Heparin Sod,Pork in 0.45% 158.56 NaCl 25,000 unit In 0.45 % NaCl 1 250ml.bag @ 11. 191 UNITS/KG/HR 10 mls/hr IV .Q24H COUNT INCLUDES [facility] Rx#: [id number] Intake, IV Titration 33.323 316.004 900 Amount 0.9% NaCl with KCl 20 Meq 800 /l 1,000 ml @ 100 mls/hr IV .Q10H [facility] Rx#: [id number] Heparin Sod,Pork in 0.45% 33.323 316.004 NaCl 25,000 unit In 0.45 % NaCl 1 250ml.bag @ 11. 191 UNITS/KG/HR 10 mls/hr IV .Q24H [facility] Rx#: [id number] Piperacillin-Tazobactam 3 100 .375 gm In Sodium Chloride 0.9% 100 ml @ 25 mls/hr IVPB Q8HR [facility] Rx# :[id number] Oral 1920 120 240 Other: Voiding Method Toilet Toilet # Voids 3 2 # Bowel Movements 0 - Labs CBC & Chem 7: 07/14/21 09:14 07/14/21 09:14 Labs: Abnormal Lab Results - Last 24 Hours (Table) 07/13/21 07/14/21 07/14/21 Range/Units 20:11 01:54 09:14 RBC (3.80-5.40) m/uL MCHC (31.0-37.0) g/dL Plt Count (150-450) k/uL Monocytes # (Manual) (0-1.0) k/uL Metamyelocytes # (Man) (0) k/uL Myelocytes # (Manual) (0) k/uL APTT 39.5 H 41.7 H 53.2 H (22.0-30.0) sec Sodium (137-145) mmol/L Carbon Dioxide (22-30) mmol/L Creatinine (0.52-1.04) mg/dL Glucose (74-99) mg/dL Alkaline Phosphatase (38-126) U/L Total Protein (6.3-8.2) g/dL Albumin (3.5-5.0) g/dL 07/14/21 07/14/21 Range/Units 09:14 09:14 RBC 3.77 L (3.80-5.40) m/uL MCHC 30.7 L (31.0-37.0) g/dL Plt Count 456 H (150-450) k/uL Monocytes # (Manual) 1.02 H (0-1.0) k/uL Metamyelocytes # (Man) 0.20 H (0) k/uL Myelocytes # (Manual) 0.41 H (0) k/uL APTT (22.0-30.0) sec Sodium 135 L (137-145) mmol/L Carbon Dioxide 19 L (22-30) mmol/L Creatinine 1.29 H (0.52-1.04) mg/dL Glucose 100 H (74-99) mg/dL Alkaline Phosphatase 381 H (38-126) U/L Total Protein 5.6 L (6.3-8.2) g/dL Albumin 2.3 L (3.5-5.0) g/dL
[2021-07-14] MEDS: HEPARIN SOD,PORK IN 0.45% NACL 25,000 UNIT in 0.45% NACL 1 250ML.BAG IV SCH (16:58)
[2021-07-15] MEDS: PIPERACILLIN-TAZOBACTAM 3.375 GM in SODIUM CHLORIDE 0.9% 100 ML IVPB SCH ×4 (00:11→23:19)
[2021-07-15] MEDS: 0.9% NACL WITH KCL 20 MEQ/L 1,000 ML IV SCH ×3 (03:48→20:14)
[2021-07-15] MEDS: HEPARIN SOD,PORK IN 0.45% NACL 25,000 UNIT in 0.45% NACL 1 250ML.BAG IV SCH ×2 (04:48→23:26)
[2021-07-15] MEDS: DIGOXIN 125 MCG TAB PO SCH (08:15)
[2021-07-15] MEDS: METOPROLOL TARTRATE 50 MG TAB PO SCH ×2 (08:15→20:13)
[2021-07-15] MEDS ORDERED: LACTATED RINGERS 1,000 ML IV ONE (08:44)
[2021-07-15] MEDS ORDERED: DEXAMETHASONE SOD PHOSPHATE 4 MG/ML 1 ML VIAL IVP ONE (08:44)
[2021-07-15] MEDS ORDERED: ONDANSETRON 4 MG/2 ML VIAL IVP ONE (08:45)
[2021-07-15] MEDS ORDERED: SUCCINYLCHOLINE CHLORIDE 100 MG/5 ML SYR IV ONE (09:48)
[2021-07-15] MEDS ORDERED: SUGAMMADEX SODIUM 500 MG/5 ML SDV IV ONE (09:48)
[2021-07-15] MEDS ORDERED: GLYCOPYRROLATE 0.2 MG/ML 2 ML VIAL ONE (09:48)
[2021-07-15] MEDS ORDERED: ROCURONIUM 10 MG/ML (5 ML VIAL) IV ONE (09:48)
[2021-07-15] MEDS ORDERED: NEOSTIGMINE 1 MG/ML 10 ML VIAL ONE (09:48)
[2021-07-15] MEDS ORDERED: PROPOFOL 10 MG/ML 20 ML VIAL IV ONE (09:48)
[2021-07-15] MEDS ORDERED: MIDAZOLAM 2 MG/2 ML VIAL ONE (09:48)
[2021-07-15] MEDS ORDERED: fentaNYL (PF) 50 MCG/ML 2 ML AMP ONE (09:48)
[2021-07-15] MEDS ORDERED: LIDOCAINE 1% INJ 10MG/ML (20 ML MDV) ONE (09:48)
[2021-07-15] MEDS ORDERED: PHENYLEPHRINE-0.9% NACL SYG 1,000 MCG/10 ML SYRINGE ONE (09:48)
[2021-07-15] MEDS ORDERED: SODIUM CHLORIDE 0.9% 100 ML with ceFAZolin 2,000 MG IV ONE ×2 (09:53)
[2021-07-15] MEDS ORDERED: BUPIVACAIN-EPI 0.25%-1:200,000 30 ML VIAL SQ ONE (10:08)
--- NOTE | 2021-07-15 10:09 | P.PN ---
Subjective Progress Note Date: 07/15/21 HISTORY OF PRESENT ILLNESS: 07/11/2021 This is a 66 year old with a past medical history significant for hypertension. 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 We have been asked to see the patient in consultation for new onset afib with RVR. Patient examined at the bedside. The patient is admitted to the hospital secondary to pancreatitis. Patient was initially scheduled for outpatient cholecystectomy this coming week however she presented to the emergency room with increased abdominal pain. The patient went into A. fib with RVR today. The patient denies any palpitations. She denies any history of atrial fibrillation. She is prescribed atenolol on an outpatient basis. Blood pressure 106/67. She currently denies any chest pain or pressure. Denies shortness of breath. EKG reveals A. fib with RVR. EKG not scanned into [email or web address] at the time of this dictation. Laboratory data: WBC 18.4. Hemoglobin 11.2. Platelet count 367. Sodium 134. Potassium 3.6. BUN 19. Crit and 1.0. Lactic acid 1.7. Bilirubin 0.8. AST 40. ALT 30. Amylase 219. Lipase 68. Current home cardiac medications include atenolol 50 mg daily 07/14/2021 Patient examined this morning at the bedside. Patient denies chest pain or pressure. Denies SOB. Denies palpitations. Patient remains in A. fib with RVR. She remains on IV heparin. Echocardiogram completed revealed ejection fraction 50-55%, mild mitral regurgitation, and mild tricuspid regurgitation. 07/15/2021 Patient examined this morning at the bedside. Patient denies chest pain or pressure. Denies SOB. Denies palpitations. She converted to sinus mechanism yesterday afternoon. She remains on IV heparin. PHYSICAL EXAM: VITAL SIGNS: Reviewed. GENERAL: Well-developed in no acute distress. HEENT: Head is normocephalic. Pupils are equal, round. Sclerae anicteric. Mucous membranes of the mouth are moist. Neck supple. No JVD or thyromegaly LUNGS: Respirations even and unlabored. Lungs essentially clear to auscultation bilaterally. HEART: Regular rate and rhythm. S1 and S2 heard. EXTREMITIES: Normal range of motion. No clubbing or cyanosis. Peripheral pulses intact. No lower extremity edema ASSESSMENT: Abdominal pain Pancreatitis Hyperkinetic gallbladder Leukocytosis New-onset paroxysmal atrial fibrillation with RVR Hypertension Hyponatremia, improving PLAN: Continue current cardiac medications Increase metoprolol to 100mg BID Continue IV heparin. Transition to Eliquis after surgical intervention. Patient may proceed with surgery today from a cardiac standpoint Further recommendations pending patient course Nurse practitioner note has been reviewed by physician. Signing provider agrees with the documented findings, assessment, and plan of care. Objective - Vital Signs Vital signs: Vital Signs Temp 97.7 F 07/15/21 08:37 Pulse 90 07/15/21 08:37 Resp 18 07/15/21 08:37 BP 156/79 07/15/21 08:37 Pulse Ox 98 07/15/21 08:37 Intake & Output 07/14/21 07/15/21 07/15/21 18:59 06:59 18:59 Intake Total 1936.245 234.643 0 Balance 1936.245 234.643 0 Intake: IV 158.56 Heparin Sod,Pork in 0.45% 158.56 NaCl 25,000 unit In 0.45 % NaCl 1 250ml.bag @ 11. 191 UNITS/KG/HR 10 mls/hr IV .Q24H [facility] Rx#: [id number] Intake, IV Titration 1057.685 234.643 Amount 0.9% NaCl with KCl 20 Meq 800 /l 1,000 ml @ 100 mls/hr IV .Q10H [facility] Rx#: [id number] Heparin Sod,Pork in 0.45% 157.685 234.643 NaCl 25,000 unit In 0.45 % NaCl 1 250ml.bag @ 11. 191 UNITS/KG/HR 10 mls/hr IV .Q24H [facility] Rx#: [id number] Piperacillin-Tazobactam 3 100 .375 gm In Sodium Chloride 0.9% 100 ml @ 25 mls/hr IVPB Q8HR [facility] Rx# :[id number] Oral 720 0 Other: # Voids 2 # Bowel Movements 1 - Labs CBC & Chem 7: 07/14/21 09:14 07/14/21 09:14 Labs: Abnormal Lab Results - Last 24 Hours (Table) 07/14/21 Range/Units 09:14 Monocytes # (Manual) 1.02 H (0-1.0) k/uL Metamyelocytes # (Man) 0.20 H (0) k/uL Myelocytes # (Manual) 0.41 H (0) k/uL
[2021-07-15] MEDS ORDERED: IOPAMIDOL CONTRAST (ORAL USE) VIAL PO PRN (10:29)
--- NOTE | 2021-07-15 10:29 | P.OP ---
Date of Procedure: 07/15/21 Preoperative Diagnosis: Cholecystitis Postoperative Diagnosis: Inflammatory mass right upper quadrant with transverse colon stuck against the abdominal wall Procedure(s) Performed: Diagnostic laparoscopy Anesthesia: GEORGINA Surgeon: Glen Barry Estimated Blood Loss (ml): 2 Pathology: none sent Condition: stable Disposition: PACU Description of Procedure: The patient's placed on the operative table in the supine position. She received general endotracheal tube anesthesia. Her abdomen was prepped and draped usual sterile fashion. The patient's abdomen was palpated. There was a mass palpated in the right upper quadrant epigastric area. A skin incision made at the umbilicus. Using Magnolia's the umbilicus grasped. And then the Veress needle was placed into the perineal cavity. Position of the wrist was confirmed with positive drop test. The abdomen was insufflated. A 5 mm trocar was then placed into the pleural cavity the umbilicus. The laparoscope placed inferotemporally. The right upper quadrant exam. The transverse colon appeared to be significantly adhered to the epigastric area and right upper quadrant. Another 5 mm trochars placed lower than the original umbilical trocar. To obtain a better view. In the inflammatory mass was seen. At this point it was decided to cancel the cholecystectomy. She was thought that the patient should have a CAT scan of this area performed. The trochars withdrawn. The skin was closed interrupted 3-0 Monocryl suture. Dermabond was applied. Patient was sent to recovery room stable condition.
[2021-07-15] MEDS: PANTOPRAZOLE 40 MG/10 ML VIAL IVP SCH ×2 (12:21→20:14)
[2021-07-15] MEDS: NYSTATIN 100,000 UNIT/ML SUSP 500,000 UNIT/5 ML CUP PO SCH ×4 (12:21→20:14)
[2021-07-15 13:57] VITALS: BMI 30.8
--- NOTE | 2021-07-15 14:56 | P.PN ---
Subjective Progress Note Date: 07/15/21 Patient is 69-year-old female came in with the right upper and lower quadrant abdominal pain which started last night. Patient had similar pain in the past at the time patient was diagnosed with gastroenteritis subsequently patient had an upper GI endoscopy and had esophagitis as well. Patient also had a HIDA scan in the past which showed hypokinetic gallbladder at that time patient is scheduled to undergo cholecystectomy next Wednesday but comes in with increased abdominal pain and tachycardia. Patient has mildly elevated lipase not high enough to say pancreatitis. She does have leukocytosis. Patient is hyponatremic in the past of hyponatremia was believed to be hypovolemic hyponatremia and was treated with IV fluids with improvement in serum sodium. Patient was comparing of nausea vomiting his abdominal pain is presently 3-09/2807/12/2021 Patient went into atrial fibrillation with rapid unclear rate was started on Cardizem drip, now received a metoprolol patient is rate controlled at this time soon atrial fibrillation on IV heparin drip. Patient will undergo cholecystectomy on the Wednesday patient had nausea vomiting last night. Patient remains on Zosyn. IV Cardizem was discontinued. Patient denied any other complaints at this time. 07/13/2021 Patient the remains in A. fib with rapid unclear rate dose of metoprolol is being increased at this time patient remains on IV heparin. Echo showed normal ejection fraction no significant abnormality. Patient is asymptomatic from this atrial fibrillation. 07/14/2021 Patient evaluated today resting in bed, Continues in afib with heart rate of 102, on IV push Digoxin daily as well as lopresser. Still on IV heparin, further medication adjustments from cardiology for better heart rate control prior to surgery. Cardiology considering possible LEONEL/cardioversion pending progress. Lap Fern once heat rate stable, than transition to eliquis postoperatively.. Labs reviewed today 135, potassium 3.9, chloride 106, CO2 19, BUN 15, Creatinine 1.29, glucose 100, AST and ALT WNL and Alk Phos 381. Patient is complaining of loose stool. 07/15/2021 Patient evaluated today status post laparoscopic incision, was supposed to be a cholecystectomy however surgery was stopped and patient was closed and brought back to the room. Per surgical notes there was an inflammatory mass right upper quadrant with transverse colon stuck to the abdominal wall. Patient is complaining of a sore throat she was intubated will give her lozenges for this. Patient converted to sinus rhythm yesterday with rate control heart rate in the 80s and was cleared by cardiology to undergo surgical intervention. Metoprolol was increased to 100 mg PO BID. Heparin drip is still off. echo shows ef 50-55%. Blood pressure today 133/80, she is afebrile, 95% on room air. Patient is placed I concur liquid diet she is on IV Zosyn and plan is for CT abdomen and pelvis in the morning to better evaluated mass. ROS Constitutional: Denied any fatigue denied any fever. Cardio vascular: denied any chest pain, palpitations. Reports lower extremity edema Gastrointestinal: denied any nausea vomiting Pulmonary: Denied any shortness of breath cough Neurologic denied any new focal deficits All inpatient medications were reviewed and appropriate changes in these medications as dictated in the interval history and assessment and plan. PHYSICAL EXAMINATION: GENERAL: The patient is alert and oriented x3, not in any acute distress. Well developed, well nourished. HEENT: Pupils are round and equally reacting to light. EOMI. No scleral icterus. No conjunctival pallor. Normocephalic, atraumatic. No pharyngeal erythema. No thyromegaly. CARDIOVASCULAR: S1 and S2 present. No murmurs, rubs, or gallops. PULMONARY: Chest is clear to auscultation, no wheezing or crackles. ABDOMEN: Soft, nontender, nondistended, normoactive bowel sounds. No palpable organomegaly. MUSCULOSKELETAL: No joint swelling or deformity. EXTREMITIES: No cyanosis, clubbing, generalized peripheral edema NEUROLOGICAL: Gross neurological examination did not reveal any focal deficits. SKIN: No rashes. Assessment and plan -New-onset atrial fibrillation patient now in normal sinus rhythm, metoprolol and digoxin -Hyponatremia: Hyporvolemic hyponatremia continue with the IV fluids, improving -Mildly elevated creatinine most likely prerenal, continue with IV fluids which are decreased as patient has some generalized peripheral edema, repeat labs in the AM. -Right upper and lower quadrant abdominal pain, cholecystectomy on hold, evidence of large inflammatory mass during laproscopic surgery today, follow up abd/pelvis CT tomorrow morning, clear liquid diet -Gastritis and esophagitis for which patient is on Protonix -Leukocytosis reactive, improved DVT prophylaxis: IV heparin on hold currently, possible PO eliquis after surgical intervention FULL CODE Objective - Vital Signs Vital signs: Vital Signs Temp 98.7 F 07/15/21 10:57 Pulse 88 07/15/21 12:39 Resp 16 07/15/21 12:39 BP 140/88 07/15/21 12:39 Pulse Ox 93 L 07/15/21 12:39 Intake & Output 07/14/21 07/15/21 07/15/21 18:59 06:59 18:59 Intake Total 1936.245 234.643 900 Output Total 1 Balance 1936.245 234.643 899 Weight 89.358 kg Intake: IV 158.56 900 Heparin Sod,Pork in 0.45% 158.56 NaCl 25,000 unit In 0.45 % NaCl 1 250ml.bag @ 11. 191 UNITS/KG/HR 10 mls/hr IV .Q24H [facility] Rx#: [id number] Intake, IV Titration 1057.685 234.643 Amount 0.9% NaCl with KCl 20 Meq 800 /l 1,000 ml @ 100 mls/hr IV .Q10H [facility] Rx#: [id number] Heparin Sod,Pork in 0.45% 157.685 234.643 NaCl 25,000 unit In 0.45 % NaCl 1 250ml.bag @ 11. 191 UNITS/KG/HR 10 mls/hr IV .Q24H [facility] Rx#: [id number] Piperacillin-Tazobactam 3 100 .375 gm In Sodium Chloride 0.9% 100 ml @ 25 mls/hr IVPB Q8HR [facility] Rx# :[id number] Oral 720 0 Output: Estimated Blood Loss 1 Other: Voiding Method Toilet # Voids 2 # Bowel Movements 1 - Labs CBC & Chem 7: 07/14/21 09:14 07/14/21 09:14
[2021-07-15 16:34] LABS: Basophils # (A) 0.1 k/uL (0-0.2); Basophils % (A) 1 %; Eosinophils % (A) 0 %; HCT 39.6 % (34.0-46.0); HGB 11.9 gm/dL (11.4-16.0); Hypochromasia Marked; Lymphocytes # (A) 0.5 k/uL (1.0-4.8); Lymphocytes % (A) 5 %; MCH 30.5 pg (25.0-35.0); MCV 101.8 fL (80.0-100.0); Macrocytosis Slight; Mean Platelet Volume 7.7; Monocytes # (A) 0.2 k/uL (0-1.0); Monocytes % (A) 2 %; Neutrophils # (A) 8.3 k/uL (1.3-7.7); Neutrophils % (A) 90 %; Platelet Count 297 k/uL (150-450); RBC 3.89 m/uL (3.80-5.40); RDW 14.4 % (11.5-15.5); WBC 9.2 k/uL (3.8-10.6)
[2021-07-15] MEDS ORDERED: BENZOCAINE/MENTHOL LOZENG 1 EACH LOZENGE MUCOUS MEM PRN (16:35)
[2021-07-15 18:00] LABS: Calcium 8.6 mg/dL (8.4-10.2); Potassium 4.6 mmol/L (3.5-5.1)
[2021-07-16 07:48] LABS: Calcium 8.5 mg/dL (8.4-10.2); Potassium 4.4 mmol/L (3.5-5.1)
[2021-07-16] MEDS: PIPERACILLIN-TAZOBACTAM 3.375 GM in SODIUM CHLORIDE 0.9% 100 ML IVPB SCH ×3 (09:20→23:59)
[2021-07-16] MEDS: NYSTATIN 100,000 UNIT/ML SUSP 500,000 UNIT/5 ML CUP PO SCH ×4 (09:21→21:34)
[2021-07-16] MEDS: METOPROLOL TARTRATE 50 MG TAB PO SCH ×2 (09:21→21:34)
[2021-07-16] MEDS: DIGOXIN 125 MCG TAB PO SCH (09:21)
[2021-07-16] MEDS: PANTOPRAZOLE 40 MG/10 ML VIAL IVP SCH ×2 (09:22→21:34)
--- NOTE | 2021-07-16 11:37 | P.PN ---
Subjective Patient is 69-year-old female came in with the right upper and lower quadrant abdominal pain which started last night. Patient had similar pain in the past at the time patient was diagnosed with gastroenteritis subsequently patient had an upper GI endoscopy and had esophagitis as well. Patient also had a HIDA scan in the past which showed hypokinetic gallbladder at that time patient is scheduled to undergo cholecystectomy next Wednesday but comes in with increased abdominal pain and tachycardia. Patient has mildly elevated lipase not high en ough to say pancreatitis. She does have leukocytosis. Patient is hyponatremic in the past of hyponatremia was believed to be hypovolemic hyponatremia and was treated with IV fluids with improvement in serum sodium. Patient was comparing of nausea vomiting his abdominal pain is presently 3-09/2807/12/2021 Patient went into atrial fibrillation with rapid unclear rate was started on Cardizem drip, now received a metoprolol patient is rate controlled at this time soon atrial fibrillation on IV heparin drip. Patient will undergo cholecystectomy on the Wednesday patient had nausea vomiting last night. Patient remains on Zosyn. IV Cardizem was discontinued. Patient denied any other complaints at this time. 07/13/2021 Patient the remains in A. fib with rapid unclear rate dose of metoprolol is being increased at this time patient remains on IV heparin. Echo showed normal ejection fraction no significant abnormality. Patient is asymptomatic from this atrial fibrillation. 07/14/2021 Patient evaluated today resting in bed, Continues in afib with heart rate of 102, on IV push Digoxin daily as well as lopresser. Still on IV heparin, further medication adjustments from cardiology for better heart rate control prior to surgery. Cardiology considering possible LEONEL/cardioversion pending progress. Lap Fern once heat rate stable, than transition to eliquis postoperatively.. Labs reviewed today 135, potassium 3.9, chloride 106, CO2 19, BUN 15, Creatinine 1.29, glucose 100, AST and ALT WNL and Alk Phos 381. Patient is complaining of loose stool. 07/15/2021 Patient evaluated today status post laparoscopic incision, was supposed to be a cholecystectomy however surgery was stopped and patient was closed and brought back to the room. Per surgical notes there was an inflammatory mass right upper quadrant with transverse colon stuck to the abdominal wall. Patient is complaining of a sore throat she was intubated will give her lozenges for this. Patient converted to sinus rhythm yesterday with rate control heart rate in the 80s and was cleared by cardiology to undergo surgical intervention. Metoprolol was increased to 100 mg PO BID. Heparin drip is still off. echo shows ef 50-55%. Blood pressure today 133/80, she is afebrile, 95% on room air. Patient is placed I concur liquid diet she is on IV Zosyn and plan is for CT abdomen and pelvis in the morning to better evaluated mass. 07/16/2020 The patient underwent a diagnostic laparoscopy which showed inflammatory mass in the right upper quadrant. Patient heart rate is well controlled continues to be on heparin remains in atrial fibrillation. IV ROS Constitutional: Denied any fatigue denied any fever. Cardio vascular: denied any chest pain, palpitations. Reports lower extremity edema Gastrointestinal: denied any nausea vomiting Pulmonary: Denied any shortness of breath cough Neurologic denied any new focal deficits All inpatient medications were reviewed and appropriate changes in these medications as dictated in the interval history and assessment and plan. PHYSICAL EXAMINATION: GENERAL: The patient is alert and oriented x3, not in any acute distress. Well developed, well nourished. HEENT: Pupils are round and equally reacting to light. EOMI. No scleral icterus. No conjunctival pallor. Normocephalic, atraumatic. No pharyngeal erythema. No thyromegaly. CARDIOVASCULAR: S1 and S2 present. No murmurs, rubs, or gallops. PULMONARY: Chest is clear to auscultation, no wheezing or crackles. ABDOMEN: Soft, nontender, nondistended, normoactive bowel sounds. No palpable organomegaly. MUSCULOSKELETAL: No joint swelling or deformity. EXTREMITIES: No cyanosis, clubbing, generalized peripheral edema NEUROLOGICAL: Gross neurological examination did not reveal any focal deficits. SKIN: No rashes. Assessment and plan -New-onset atrial fibrillation patient now in normal sinus rhythm, metoprolol and digoxin -Hyponatremia: Hyporvolemic hyponatremia continue with the IV fluids, improving -Mildly elevated creatinine most likely prerenal, continue with IV fluids which are decreased as patient has some generalized peripheral edema, repeat labs in the AM. -Right upper and lower quadrant abdominal pain, cholecystectomy on hold, evidence of large inflammatory mass during laproscopic surgery today, follow up abd/pelvis CT tomorrow morning, clear liquid diet -Gastritis and esophagitis for which patient is on Protonix -Leukocytosis reactive, improved DVT prophylaxis: IV heparin on hold currently, possible PO eliquis after surgical intervention FULL CODE Objective - Vital Signs Vital signs: Vital Signs Temp 97.6 F 07/16/21 05:00 Pulse 91 07/16/21 05:00 Resp 18 07/16/21 05:00 BP 144/79 07/16/21 05:00 Pulse Ox 94 L 07/16/21 05:00 Intake & Output 07/15/21 07/16/21 07/16/21 18:59 06:59 18:59 Intake Total 1800 250 Output Total 301 Balance 1499 250 Weight 89.358 kg Intake: IV 900 Intake, IV Titration 900 250 Amount Heparin Sod,Pork in 0.45% 250 NaCl 25,000 unit In 0.45 % NaCl 1 250ml.bag @ 11. 191 UNITS/KG/HR 10 mls/hr IV .Q24H [facility] Rx#: [id number] Piperacillin-Tazobactam 3 100 .375 gm In Sodium Chloride 0.9% 100 ml @ 25 mls/hr IVPB Q8HR [facility] Rx# :[id number] Sodium Chloride 0.9% 100 800 ml @ 0 mls/hr IV .STK-MED ONE with ceFAZolin 2,000 mg Rx#:[id number] Oral 0 Output: Urine 300 Estimated Blood Loss 1 Other: Voiding Method Toilet # Voids 1 - Labs CBC & Chem 7: 07/15/21 16:07 07/16/21 05:55 Labs: Abnormal Lab Results - Last 24 Hours (Table) 07/15/21 07/15/21 07/15/21 Range/Units 16:07 17:37 17:37 MCV 101.8 H (80.0-100.0) fL MCHC 30.0 L (31.0-37.0) g/dL Neutrophils # 8.3 H (1.3-7.7) k/uL Lymphocytes # 0.5 L (1.0-4.8) k/uL APTT 21.0 L (22.0-30.0) sec Chloride 112 H (98-107) mmol/L Carbon Dioxide 18 L (22-30) mmol/L Creatinine 1.12 H (0.52-1.04) mg/dL Glucose 115 H (74-99) mg/dL 07/16/21 07/16/21 Range/Units 03:59 05:55 MCV (80.0-100.0) fL MCHC (31.0-37.0) g/dL Neutrophils # (1.3-7.7) k/uL Lymphocytes # (1.0-4.8) k/uL APTT 55.9 H (22.0-30.0) sec Chloride 113 H (98-107) mmol/L Carbon Dioxide 17 L (22-30) mmol/L Creatinine 1.13 H (0.52-1.04) mg/dL Glucose 131 H (74-99) mg/dL
--- NOTE | 2021-07-16 11:45 | P.PN ---
Subjective Progress Note Date: 07/16/21 HISTORY OF PRESENT ILLNESS: 07/11/2021 This is a 66 year old with a past medical history significant for hypertension. 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 We have been asked to see the patient in consultation for new onset afib with RVR. Patient examined at the bedside. The patient is admitted to the hospital secondary to pancreatitis. Patient was initially scheduled for outpatient cholecystectomy this coming week however she presented to the emergency room with increased abdominal pain. The patient went into A. fib with RVR today. The patient denies any palpitations. She denies any history of atrial fibrillation. She is prescribed atenolol on an outpatient basis. Blood pressure 106/67. She currently denies any chest pain or pressure. Denies shortness of breath. EKG reveals A. fib with RVR. EKG not scanned into [facility] at the time of this dictation. Laboratory data: WBC 18.4. Hemoglobin 11.2. Platelet count 367. Sodium 134. Potassium 3.6. BUN 19. Crit and 1.0. Lactic acid 1.7. Bilirubin 0.8. AST 40. ALT 30. Amylase 219. Lipase 68. Current home cardiac medications include atenolol 50 mg daily 07/14/2021 Patient examined this morning at the bedside. Patient denies chest pain or pressure. Denies SOB. Denies palpitations. Patient remains in A. fib with RVR. She remains on IV heparin. Echocardiogram completed revealed ejection fraction 50-55%, mild mitral regurgitation, and mild tricuspid regurgitation. 07/15/2021 Patient examined this morning at the bedside. Patient denies chest pain or pressure. Denies SOB. Denies palpitations. She converted to sinus mechanism yesterday afternoon. She remains on IV heparin. 07/16/2021 Patient examined this morning at the bedside. Patient was originally scheduled for cholecystectomy yesterday. However the patient was found to have an inflammatory mass right upper quadrant with the transverse colon stuck against the abdominal wall. Her cholecystectomy was canceled. She is scheduled to have a computed tomography scan today. She remains on IV heparin. Telemetry reveals sinus mechanism. Blood pressure 144/79. PHYSICAL EXAM: VITAL SIGNS: Reviewed. GENERAL: Well-developed in no acute distress. HEENT: Head is normocephalic. Pupils are equal, round. Sclerae anicteric. Mucous membranes of the mouth are moist. Neck supple. No JVD or thyromegaly LUNGS: Respirations even and unlabored. Lungs essentially clear to auscultation bilaterally. HEART: Regular rate and rhythm. S1 and S2 heard. EXTREMITIES: Normal range of motion. No clubbing or cyanosis. Peripheral pulses intact. No lower extremity edema ASSESSMENT: Abdominal pain Pancreatitis Hyperkinetic gallbladder Leukocytosis New-onset paroxysmal atrial fibrillation with RVR Hypertension Hyponatremia, improving Inflammatory mass right upper quadrant with transverse colon stuck against abdominal wall PLAN: Continue current cardiac medications Continue telemetry monitoring Continue IV heparin. Transition to Eliquis when okay with general surgery. Further recommendations pending patient course Nurse practitioner note has been reviewed by physician. Signing provider agrees with the documented findings, assessment, and plan of care. Objective - Vital Signs Vital signs: Vital Signs Temp 97.6 F 07/16/21 05:00 Pulse 91 07/16/21 05:00 Resp 18 07/16/21 05:00 BP 144/79 07/16/21 05:00 Pulse Ox 94 L 07/16/21 05:00 Intake & Output 07/15/21 07/16/21 07/16/21 18:59 06:59 18:59 Intake Total 1800 250 Output Total 301 Balance 1499 250 Weight 89.358 kg Intake: IV 900 Intake, IV Titration 900 250 Amount Heparin Sod,Pork in 0.45% 250 NaCl 25,000 unit In 0.45 % NaCl 1 250ml.bag @ 11. 191 UNITS/KG/HR 10 mls/hr IV .Q24H [facility] Rx#: [id number] Piperacillin-Tazobactam 3 100 .375 gm In Sodium Chloride 0.9% 100 ml @ 25 mls/hr IVPB Q8HR [facility] Rx# :[id number] Sodium Chloride 0.9% 100 800 ml @ 0 mls/hr IV .STK-MED ONE with ceFAZolin 2,000 mg Rx#:[id number] Oral 0 Output: Urine 300 Estimated Blood Loss 1 Other: Voiding Method Toilet # Voids 1 - Labs CBC & Chem 7: 07/15/21 16:07 07/16/21 05:55 Labs: Abnormal Lab Results - Last 24 Hours (Table) 07/15/21 07/15/21 07/15/21 Range/Units 16:07 17:37 17:37 MCV 101.8 H (80.0-100.0) fL MCHC 30.0 L (31.0-37.0) g/dL Neutrophils # 8.3 H (1.3-7.7) k/uL Lymphocytes # 0.5 L (1.0-4.8) k/uL APTT 21.0 L (22.0-30.0) sec Chloride 112 H (98-107) mmol/L Carbon Dioxide 18 L (22-30) mmol/L Creatinine 1.12 H (0.52-1.04) mg/dL Glucose 115 H (74-99) mg/dL 07/16/21 07/16/21 Range/Units 03:59 05:55 MCV (80.0-100.0) fL MCHC (31.0-37.0) g/dL Neutrophils # (1.3-7.7) k/uL Lymphocytes # (1.0-4.8) k/uL APTT 55.9 H (22.0-30.0) sec Chloride 113 H (98-107) mmol/L Carbon Dioxide 17 L (22-30) mmol/L Creatinine 1.13 H (0.52-1.04) mg/dL Glucose 131 H (74-99) mg/dL
--- NOTE | 2021-07-16 12:19 | CT ---
"EXAMINATION TYPE: CT abdomen pelvis w con DATE OF EXAM: 07/16/2021 HISTORY: right upper quadrant mass CT DLP: 1972.9mGycm Automated Exposure Control for Dose Reduction was Utilized. CONTRAST: CT scan of the abdomen and pelvis is performed with oral and with IV Contrast, patient injected with 100 mL of Isovue 300. COMPARISON: CT abdomen and pelvis June 16, 2021. Ultrasound abdomen July 10, 2021 FINDINGS: LUNG BASES: Aqnze-is-loqakxgs sized bilateral pleural effusions with associated compressive atelectas is are increased in size from prior CT. There is additional right lower lobe anterior consolidation w ith air bronchograms noted on today's study. LIVER/GB: Liver remains heterogeneously hypodense consistent with underlying hepatocellular disease. No suspicious focal mass or ductal dilatation is identified. Mild fluid now surrounds the gallbladder . PANCREAS: Worsening heterogeneous fluid and fat stranding throughout the pancreas with areas of focal fluid containing internal air now identified. Small foci of pneumoperitoneum are present. SPLEEN: Small amount of curvilinear free fluid in the superior splenic hilum axial image 24 is now pr esent. ADRENALS: No significant abnormality is seen. KIDNEYS: Subcentimeter benign-appearing thin-walled cyst anterior central aspect axial image 50 is fe lt present. BOWEL: Oral contrast reaches the cecum. No suspicious small or large bowel dilatation. There is poor contrast opacification of the duodenal sweep. There is persistent surrounding fluid and fat stranding particularly along the second and proximal third portion. Focus of wall thickening in the right colo n on axial image 45 is present to be product of poor distention. Underlying constricting mass not ent irely excluded though reactive inflammatory changes are favored. UTERUS/ADNEXA: Retroverted uterus. Moderate amount of free fluid in the pelvis. Scattered tiny bilate ral pelvic phleboliths. LYMPH NODES: No greater than 1cm abdominal or pelvic lymph nodes are appreciated. OSSEOUS STRUCTURES: Moderate to severe disc space narrowing with vacuum disc phenomenon at lumbosacra l junction. OTHER: No significant additional abnormality is seen. IMPRESSION: Worsening acute pancreatitis with now severe acute necrotizing pancreatitis identified. A reas of nonenhancement and necrosis are present. There are interval development of focal fluid collec tions containing internal air consistent with developing adjacent abscesses. Small foci of free air a lso identified. Case discussed with patient's nurse via telephone at time of dictation. A [place] level critical message alert has been initiated for Glen Barry MD via the [employer] 60 | Critical Results System on 07/16/2021 12:16 PM. This message alert has been sent to Glen العلي MD via the preferences provided by the clinician for the receipt of Radiology Critical Findings. Message ID [id number]."
--- NOTE | 2021-07-16 12:55 | P.PN ---
Subjective Progress Note Date: 07/16/21 CHIEF COMPLAINT: Abdominal pain with nausea and vomiting HISTORY OF PRESENT ILLNESS: Patient sitting up in bed. She denies any abdominal pain. Denies any nausea or vomiting. Patient taken to the OR yesterday and findings showed an inflammatory mass right upper quadrant with transverse colon stuck against the abdominal wall. Surgery was then aborted. And computed tomography scan of the abdomen and pelvis was ordered. Results showed worsening acute pancreatitis with now severe acute necrotizing pancreatitis identified. Areas of non-enhancement and necrosis are present. There are interval deve lopment of focal fluid collections containing internal air consistent with developing adjacent abscesses. Small foci of free air also identified. CAT scan results were reviewed with Dr. campos. He felt that due to patient denying any abdominal pain, normal white count and no fever CAT scan findings most likely represent a resolving pancreatitis. Afebrile. WBC yesterday was 9.2 sodium 137 potassium 4.4 creatinine 1.13 PHYSICAL EXAM: VITAL SIGNS: Reviewed. GENERAL: Well-developed in no acute distress. HEENT: No sclera icterus. Extraocular movements grossly intact. Moist buccal mucosa. Head is atraumatic, normocephalic. ABDOMEN: Soft. Nondistended. Nontender incision site clean dry and intact. Patient does have a compression dressing lower abdomen clean dry and intact. NEUROLOGIC: Alert and oriented. Cranial nerves II through XII grossly intact. ASSESSMENT: 1. Abdominal pain resolved 2. Resolving Pancreatitis. Computed tomography scan findings discussed with Dr. campos 3. Cholecystitis. Hyperkinetic gallbladder. Ultrasound evidence of sludge and/or small stones in gallbladder 4. New-onset atrial fibrillation with rapid ventricular response. Followed by cardiology service PLAN: -Patient can start clear liquid diet -Continue to monitor -Repeat labs in a.m. -Continue antibiotics -Continue IV heparin for now for A. fib Physician [employer] War[employer] Operations Officer note has been reviewed by physician. Signing provider agrees with the documented findings, assessment, and plan of care. Objective - Vital Signs Vital signs: Vital Signs Temp 97.4 F L 07/16/21 12:07 Pulse 80 07/16/21 12:07 Resp 16 07/16/21 12:07 BP 138/83 07/16/21 12:07 Pulse Ox 97 07/16/21 12:07 Intake & Output 07/15/21 07/16/21 07/16/21 18:59 06:59 18:59 Intake Total 1800 250 Output Total 301 Balance 1499 250 Weight 89.358 kg Intake: IV 900 Intake, IV Titration 900 250 Amount Heparin Sod,Pork in 0.45% 250 NaCl 25,000 unit In 0.45 % NaCl 1 250ml.bag @ 11. 191 UNITS/KG/HR 10 mls/hr IV .Q24H [facility] Rx#: [id number] Piperacillin-Tazobactam 3 100 .375 gm In Sodium Chloride 0.9% 100 ml @ 25 mls/hr IVPB Q8HR [facility] Rx# :[id number] Sodium Chloride 0.9% 100 800 ml @ 0 mls/hr IV .STK-MED ONE with ceFAZolin 2,000 mg Rx#:[id number] Oral 0 Output: Urine 300 Estimated Blood Loss 1 Other: Voiding Method Toilet # Voids 1 - Labs CBC & Chem 7: 07/15/21 16:07 07/16/21 05:55 Labs: Abnormal Lab Results - Last 24 Hours (Table) 07/15/21 07/15/21 07/15/21 Range/Units 16:07 17:37 17:37 MCV 101.8 H (80.0-100.0) fL MCHC 30.0 L (31.0-37.0) g/dL Neutrophils # 8.3 H (1.3-7.7) k/uL Lymphocytes # 0.5 L (1.0-4.8) k/uL APTT 21.0 L (22.0-30.0) sec Chloride 112 H (98-107) mmol/L Carbon Dioxide 18 L (22-30) mmol/L Creatinine 1.12 H (0.52-1.04) mg/dL Glucose 115 H (74-99) mg/dL 07/16/21 07/16/21 Range/Units 03:59 05:55 MCV (80.0-100.0) fL MCHC (31.0-37.0) g/dL Neutrophils # (1.3-7.7) k/uL Lymphocytes # (1.0-4.8) k/uL APTT 55.9 H (22.0-30.0) sec Chloride 113 H (98-107) mmol/L Carbon Dioxide 17 L (22-30) mmol/L Creatinine 1.13 H (0.52-1.04) mg/dL Glucose 131 H (74-99) mg/dL
[2021-07-16] MEDS: 0.9% NACL WITH KCL 20 MEQ/L 1,000 ML IV SCH (15:12)
[2021-07-16] MEDS: HEPARIN SOD,PORK IN 0.45% NACL 25,000 UNIT in 0.45% NACL 1 250ML.BAG IV SCH (23:04)
[2021-07-17 06:05] LABS: HGB 10.7 gm/dL (11.4-16.0); Hypochromasia Slight; MCH 30.7 pg (25.0-35.0); MCHC 31.6 g/dL (31.0-37.0); MCV 97.2 fL (80.0-100.0); Mean Platelet Volume 7.6; Platelet Count 307 k/uL (150-450); RBC 3.49 m/uL (3.80-5.40); RDW 15.2 % (11.5-15.5); WBC 9.4 k/uL (3.8-10.6)
[2021-07-17 07:03] LABS: Albumin 2.1 g/dL (3.5-5.0); Calcium 8.7 mg/dL (8.4-10.2); Potassium 4.1 mmol/L (3.5-5.1); Total Bilirubin 0.5 mg/dL (0.2-1.3); Total Protein 5.2 g/dL (6.3-8.2)
[2021-07-17] MEDS: PANTOPRAZOLE 40 MG/10 ML VIAL IVP SCH (09:17)
[2021-07-17] MEDS: NYSTATIN 100,000 UNIT/ML SUSP 500,000 UNIT/5 ML CUP PO SCH ×2 (09:17→13:05)
[2021-07-17] MEDS: DIGOXIN 125 MCG TAB PO SCH (09:18)
[2021-07-17] MEDS: METOPROLOL TARTRATE 50 MG TAB PO SCH (09:18)
[2021-07-17] MEDS: PIPERACILLIN-TAZOBACTAM 3.375 GM in SODIUM CHLORIDE 0.9% 100 ML IVPB SCH (09:18)
[2021-07-17] MEDS ORDERED: FUROSEMIDE 10 MG/ML 4 ML VIAL IV SCH (10:15)
[2021-07-17] MEDS ORDERED: APIXABAN 5 MG TAB PO SCH (10:45)
[2021-07-17 11:14] VITALS: RESP 18
[2021-07-17 11:59] VITALS: BP 181/83; PULSE 79; TEMP 98.9
--- NOTE | 2021-07-17 12:26 | P.PN ---
Subjective Patient is 69-year-old female came in with the right upper and lower quadrant abdominal pain which started last night. Patient had similar pain in the past at the time patient was diagnosed with gastroenteritis subsequently patient had an upper GI endoscopy and had esophagitis as well. Patient also had a HIDA scan in the past which showed hypokinetic gallbladder at that time patient is scheduled to undergo cholecystectomy next Wednesday but comes in with increased abdominal pain and tachycardia. Patient has mildly elevated lipase not high en ough to say pancreatitis. She does have leukocytosis. Patient is hyponatremic in the past of hyponatremia was believed to be hypovolemic hyponatremia and was treated with IV fluids with improvement in serum sodium. Patient was comparing of nausea vomiting his abdominal pain is presently 3-09/2807/12/2021 Patient went into atrial fibrillation with rapid unclear rate was started on Cardizem drip, now received a metoprolol patient is rate controlled at this time soon atrial fibrillation on IV heparin drip. Patient will undergo cholecystectomy on the Wednesday patient had nausea vomiting last night. Patient remains on Zosyn. IV Cardizem was discontinued. Patient denied any other complaints at this time. 07/13/2021 Patient the remains in A. fib with rapid unclear rate dose of metoprolol is being increased at this time patient remains on IV heparin. Echo showed normal ejection fraction no significant abnormality. Patient is asymptomatic from this atrial fibrillation. 07/14/2021 Patient evaluated today resting in bed, Continues in afib with heart rate of 102, on IV push Digoxin daily as well as lopresser. Still on IV heparin, further medication adjustments from cardiology for better heart rate control prior to surgery. Cardiology considering possible LEONEL/cardioversion pending progress. Lap Fern once heat rate stable, than transition to eliquis postoperatively.. Labs reviewed today 135, potassium 3.9, chloride 106, CO2 19, BUN 15, Creatinine 1.29, glucose 100, AST and ALT WNL and Alk Phos 381. Patient is complaining of loose stool. 07/15/2021 Patient evaluated today status post laparoscopic incision, was supposed to be a cholecystectomy however surgery was stopped and patient was closed and brought back to the room. Per surgical notes there was an inflammatory mass right upper quadrant with transverse colon stuck to the abdominal wall. Patient is complaining of a sore throat she was intubated will give her lozenges for this. Patient converted to sinus rhythm yesterday with rate control heart rate in the 80s and was cleared by cardiology to undergo surgical intervention. Metoprolol was increased to 100 mg PO BID. Heparin drip is still off. echo shows ef 50-55%. Blood pressure today 133/80, she is afebrile, 95% on room air. Patient is placed I concur liquid diet she is on IV Zosyn and plan is for CT abdomen and pelvis in the morning to better evaluated mass. 07/16/2020 The patient underwent a diagnostic laparoscopy which showed inflammatory mass in the right upper quadrant. Patient heart rate is well controlled continues to be on heparin remains in atrial fibrillation. IV 07/17/2021 Patient's inflammatory mass is believed to be pancreatitis patient had a CT of the abdomen which showed 80 years of necrosis patient was on antibiotic although on Zosyn not to meropenem. Anyways patient symptoms significantly improved and patient wanted to go home. Patient is also found to have icyl-ev-njasyydg pleural effusions on the CAT scan of the chest may be heart failure exacerbation R May be related to pancreatitis itself patient will be given a dose of Lasix and will be discharged on low-dose of Lasix along with potassium supplementation. Patient was switched to Eliquis ROS Constitutional: Denied any fatigue denied any fever. Cardio vascular: denied any chest pain, palpitations. Reports lower extremity edema Gastrointestinal: denied any nausea vomiting Pulmonary: Denied any shortness of breath cough Neurologic denied any new focal deficits All inpatient medications were reviewed and appropriate changes in these medications as dictated in the interval history and assessment and plan. PHYSICAL EXAMINATION: GENERAL: The patient is alert and oriented x3, not in any acute distress. Well developed, well nourished. HEENT: Pupils are round and equally reacting to light. EOMI. No scleral icterus. No conjunctival pallor. Normocephalic, atraumatic. No pharyngeal erythema. No thyromegaly. CARDIOVASCULAR: S1 and S2 present. No murmurs, rubs, or gallops. PULMONARY: Chest is clear to auscultation, no wheezing or crackles. ABDOMEN: Soft, nontender, nondistended, normoactive bowel sounds. No palpable organomegaly. MUSCULOSKELETAL: No joint swelling or deformity. EXTREMITIES: No cyanosis, clubbing, generalized peripheral edema NEUROLOGICAL: Gross neurological examination did not reveal any focal deficits. SKIN: No rashes. Assessment and plan -New-onset atrial fibrillation patient now in normal sinus rhythm, metoprolol and digoxin , patient will be discharged on Eliquis -Pancreatitis necrotizing hepatitis: Surgery is not suggesting any surgical intervention at this time as patient is clinically doing well and patient is asymptomatic clinically -Hyponatremia: Hyporvolemic hyponatremia improved with IV fluids -Mildly elevated creatinine most likely prerenal, probably chronic kidney disease stage III patient creatinine is 1.2 to remained at that level. --Bilateral pleural effusions: Can be related to pancreatitis or volume overload secondary to atrial fibrillation. -Gastritis and esophagitis for which patient is on Protonix -Leukocytosis reactive, improved Objective - Vital Signs Vital signs: Vital Signs Temp 98.9 F 07/17/21 11:58 Pulse 79 07/17/21 11:58 Resp 18 07/17/21 11:58 BP 181/83 07/17/21 11:58 Pulse Ox 98 07/17/21 11:58 Intake & Output 07/16/21 07/17/21 07/17/21 18:59 06:59 18:59 Intake Total 2730 151.623 0 Balance 2730 151.623 0 Intake: IV 80 Heparin Sod,Pork in 0.45% 80 NaCl 25,000 unit In 0.45 % NaCl 1 250ml.bag @ 11. 191 UNITS/KG/HR 10 mls/hr IV .Q24H [facility] Rx#: [id number] Intake, IV Titration 1250 151.623 0 Amount Heparin Sod,Pork in 0.45% 250 151.623 0 NaCl 25,000 unit In 0.45 % NaCl 1 250ml.bag @ 11. 191 UNITS/KG/HR 10 mls/hr IV .Q24H [facility] Rx#: [id number] Piperacillin-Tazobactam 3 200 .375 gm In Sodium Chloride 0.9% 100 ml @ 25 mls/hr IVPB Q8HR [facility] Rx# :[id number] Sodium Chloride 0.9% 100 800 ml @ 0 mls/hr IV .STK-MED ONE with ceFAZolin 2,000 mg Rx#:[id number] Oral 1400 Other: Voiding Method Toilet Toilet # Voids 3 3 - Labs CBC & Chem 7: 07/17/21 05:09 07/17/21 05:09 Labs: Abnormal Lab Results - Last 24 Hours (Table) 07/17/21 07/17/21 07/17/21 Range/Units 05:09 05:09 05:09 RBC 3.49 L (3.80-5.40) m/uL Hgb 10.7 L (11.4-16.0) gm/dL APTT 138.9 H* (22.0-30.0) sec Chloride 113 H (98-107) mmol/L Carbon Dioxide 21 L (22-30) mmol/L Creatinine 1.22 H (0.52-1.04) mg/dL AST 72 H (14-36) U/L ALT 45 H (4-34) U/L Alkaline Phosphatase 201 H (38-126) U/L Total Protein 5.2 L (6.3-8.2) g/dL Albumin 2.1 L (3.5-5.0) g/dL
--- NOTE | 2021-07-17 13:23 | P.DS ---
Providers Date of admission: 07/10/21 13:10 Expected date of discharge: 07/17/21 Attending physician: Glen Campos Consults: 07/10/21 13:58 Consult Physician Routine Consulting Provider: Miroslava Carlson Consult Reason/Comments: medical management Do you want consulting provider notified?: Yes 07/11/21 10:39 Consult Physician Urgent Consulting Provider: Zachery Jackson Consult Reason/Comments: afib rvr? new onset Do you want consulting provider notified?: Yes Primary care physician: Chelsea Mcdowell Hospital Course: Discharge diagnosis 1. Abdominal pain resolved 2. Resolving Pancreatitis 3. Hyperkinetic gallbladder. Ultrasound evidence of sludge and/or small stones in gallbladder 4. New-onset atrial fibrillation with rapid ventricular response Hospital course This is a 66-year-old female with a known history of a hyperkinetic gallbladder. She was initially scheduled for cholecystectomy outpatient with Dr. Campos. However she's had increase in her right upper quadrant abdominal pain with nausea and vomiting. Patient unable to keep solids or liquids down. She denies any fevers or chills. She denies any past history of pancreatitis. Denies any alcohol use. Patient was diagnosed with acute pancreatitis. She was started on antibiotics given IV fluids and initially made nothing by mouth. She had only minimally elevated enzyme levels. She was to be taken to the OR for a laparoscopic cholecystectomy on 07/15/[address] campos. He noted there to be an inflammatory mass in the right upper quadrant with transverse colon stuck against the abdominal wall. Therefore the cholecystomy was aborted and patient had a computed tomography scan of the abdomen and pelvis completed. Computed tomography scan showed worsening acute pancreatitis with now severe acute necrotizing pancreatitis identified. Areas of non-enhancement and necrosis are present. There are interval development of focal fluid collections containing internal air consistent with developing adjacent abscesses. Small foci of free air also identified. CAT scan results were reviewed with Dr. campos. He felt that due to patient denying any abdominal pain, normal white count and no fever CAT scan findings most likely represent a resolving pancreatitis. Patient tolerated advancement of diet of full liquids. Denies any abdominal pain. Denies any nausea or vomiting. She has been up ambulating. She is afebrile. She is stable for discharge. Patient also seen by cardiology for her new-onset atrial fibrillation. And medicine service has treated her bilateral pleural effusions. She's been cleared by all consulting physicians for discharge. Patient is stable for discharge. Please refer to chart for any further details. Physician Redevelopment Manager note has been reviewed by physician. Signing provider agrees with the documented findings, assessment, and plan of care. Patient Condition at Discharge: Stable Plan - Discharge Summary Discharge Rx Participant: Yes New Discharge Prescriptions: New Furosemide [Lasix] 20 mg PO BID #60 tab Potassium Chloride ER [K-Dur 10] 10 meq PO DAILY #30 tab Levofloxacin [Levaquin] 500 mg PO DAILY 7 Days #7 tab Digoxin [Lanoxin] 125 mcg PO DAILY #90 tab Apixaban [Eliquis] 5 mg PO BID #60 tab Metoprolol Tartrate [Lopressor] 100 mg PO BID #360 tab Continue Pantoprazole [Protonix] 40 mg PO AC-BID 30 Days #60 tab Nystatin 100,000 Unit/ml Susp [Mycostatin Oral Susp] 4 ml PO QID #200 ml Ondansetron [Zofran] 4 mg PO Q6H PRN PRN Reason: Nausea Discontinued atenoloL [Tenormin] 50 mg PO DAILY Discharge Medication List Pantoprazole [Protonix] 40 mg PO AC-BID 30 Days #60 tab 06/20/21 [Rx] Nystatin 100,000 Unit/ml Susp [Mycostatin Oral Susp] 4 ml PO QID #200 ml 06/30/21 [Rx] Ondansetron [Zofran] 4 mg PO Q6H PRN 07/10/21 [History] Apixaban [Eliquis] 5 mg PO BID #60 tab 07/11/21 [Rx] Digoxin [Lanoxin] 125 mcg PO DAILY #90 tab 07/17/21 [Rx] Furosemide [Lasix] 20 mg PO BID #60 tab 07/17/21 [Rx] Levofloxacin [Levaquin] 500 mg PO DAILY 7 Days #7 tab 07/17/21 [Rx] Metoprolol Tartrate [Lopressor] 100 mg PO BID #360 tab 07/17/21 [Rx] Potassium Chloride ER [K-Dur 10] 10 meq PO DAILY #30 tab 07/17/21 [Rx] Follow up Appointment(s)/Referral(s): Dakota Barry MD [STAFF PHYSICIAN] - 1 Week Jeremias Tran MD [Primary Care Provider] - 1-2 days Glen Campos MD [STAFF PHYSICIAN] - 1 Week Activity/Diet/Wound Care/Special Instructions: Continue full liquid diet No lifting over 10 pounds You may shower. No soaking or tub baths for 2 weeks Very light activity until you are reevaluated at your follow up appointment with your surgeon Discharge Disposition: HOME SELF-CARE
--- NOTE | 2021-07-17 13:25 | P.PN ---
Subjective Progress Note Date: 07/17/21 HISTORY OF PRESENT ILLNESS: 07/11/2021 This is a 66 year old with a past medical history significant for hypertension. Patient does not follow with a loss prevention lead. We have been asked to see the patient in consultation for new onset afib with RVR. Patient examined at the bedside. The patient is admitted to the hospital secondary to pancreatitis. Patient was initially scheduled for outpatient cholecystectomy this coming week however she presented to the emergency room with increased abdominal pain. The patient went into A. fib with RVR today. The patient denies any palpitations. She denies any history of atrial fibrillation. She is prescribed atenolol on an outpatient basis. Blood pressure 106/67. She currently denies any chest pain or pressure. Denies shortness of breath. EKG reveals A. fib with RVR. EKG not scanned into [employer] at the time of this dictation. Laboratory data: WBC 18.4. Hemoglobin 11.2. Platelet count 367. Sodium 134. Potassium 3.6. BUN 19. Crit and 1.0. Lactic acid 1.7. Bilirubin 0.8. AST 40. ALT 30. Amylase 219. Lipase 68. Current home cardiac medications include atenolol 50 mg daily 07/14/2021 Patient examined this morning at the bedside. Patient denies chest pain or pressure. Denies SOB. Denies palpitations. Patient remains in A. fib with RVR. She remains on IV heparin. Echocardiogram completed revealed ejection fraction 50-55%, mild mitral regurgitation, and mild tricuspid regurgitation. 07/15/2021 Patient examined this morning at the bedside. Patient denies chest pain or pressure. Denies SOB. Denies palpitations. She converted to sinus mechanism yesterday afternoon. She remains on IV heparin. 07/16/2021 Patient examined this morning at the bedside. Patient was originally scheduled for cholecystectomy yesterday. However the patient was found to have an inflammatory mass right upper quadrant with the transverse colon stuck against the abdominal wall. Her cholecystectomy was canceled. She is scheduled to have a computed tomography scan today. She remains on IV heparin. Telemetry reveals sinus mechanism. Blood pressure 144/79. 07/17/2021 Patient examined this morning at the bedside. Patient denies chest pain or pressure. Denies shortness of breath. Telemetry reveals sinus mechanism. She remains on IV heparin. No further surgical intervention to be performed at this time. Patient's CAT scan from yesterday revealed bilateral pleural effusions. She was started on IV Lasix per internal medicine. PHYSICAL EXAM: VITAL SIGNS: Reviewed. GENERAL: Well-developed in no acute distress. HEENT: Head is normocephalic. Pupils are equal, round. Sclerae anicteric. Mucous membranes of the mouth are moist. Neck supple. No JVD or thyromegaly LUNGS: Respirations even and unlabored. Lungs essentially clear to auscultation bilaterally. HEART: Regular rate and rhythm. S1 and S2 heard. EXTREMITIES: Normal range of motion. No clubbing or cyanosis. Peripheral pulses intact. No lower extremity edema ASSESSMENT: Abdominal pain Pancreatitis Hyperkinetic gallbladder Leukocytosis New-onset paroxysmal atrial fibrillation with RVR Hypertension Hyponatremia, improving Inflammatory mass right upper quadrant with transverse colon stuck against abdominal wall Bilateral pleural effusions PLAN: Continue current cardiac medications Discontinue IV heparin. Begin Eliquis 5 mg twice a day Patient is currently stable from a cardiac standpoint She is to follow up on an outpatient basis Nurse practitioner note has been reviewed by physician. Signing provider agrees with the documented findings, assessment, and plan of care. Objective - Vital Signs Vital signs: Vital Signs Temp 98.9 F 07/17/21 11:58 Pulse 79 07/17/21 11:58 Resp 18 07/17/21 11:58 BP 181/83 07/17/21 11:58 Pulse Ox 98 07/17/21 11:58 Intake & Output 07/16/21 07/17/21 07/17/21 18:59 06:59 18:59 Intake Total 2730 151.623 0 Balance 2730 151.623 0 Intake: IV 80 Heparin Sod,Pork in 0.45% 80 NaCl 25,000 unit In 0.45 % NaCl 1 250ml.bag @ 11. 191 UNITS/KG/HR 10 mls/hr IV .Q24H [facility] Rx#: [id number] Intake, IV Titration 1250 151.623 0 Amount Heparin Sod,Pork in 0.45% 250 151.623 0 NaCl 25,000 unit In 0.45 % NaCl 1 250ml.bag @ 11. 191 UNITS/KG/HR 10 mls/hr IV .Q24H [facility] Rx#: [id number] Piperacillin-Tazobactam 3 200 .375 gm In Sodium Chloride 0.9% 100 ml @ 25 mls/hr IVPB Q8HR [facility] Rx# :[id number] Sodium Chloride 0.9% 100 800 ml @ 0 mls/hr IV .STK-MED ONE with ceFAZolin 2,000 mg Rx#:[id number] Oral 1400 Other: Voiding Method Toilet Toilet # Voids 3 3 - Labs CBC & Chem 7: 07/17/21 05:09 07/17/21 05:09 Labs: Abnormal Lab Results - Last 24 Hours (Table) 07/17/21 07/17/21 07/17/21 Range/Units 05:09 05:09 05:09 RBC 3.49 L (3.80-5.40) m/uL Hgb 10.7 L (11.4-16.0) gm/dL APTT 138.9 H* (22.0-30.0) sec Chloride 113 H (98-107) mmol/L Carbon Dioxide 21 L (22-30) mmol/L Creatinine 1.22 H (0.52-1.04) mg/dL AST 72 H (14-36) U/L ALT 45 H (4-34) U/L Alkaline Phosphatase 201 H (38-126) U/L Total Protein 5.2 L (6.3-8.2) g/dL Albumin 2.1 L (3.5-5.0) g/dL
--- NOTE | 2021-07-17 14:38 | CDI ---
Documentation Clarification Form Date: 07/17/2021 02:19:47 PM From: Sparkle Ortiz RN CCDS Admit Date: 07/10/2021 01:10:00 PM Patient Name: Lu Hernandez Visit Number: [id number] Discharge Date: ATTENTION: The Clinical Documentation Specialists (CDI) and [facility] Coding Staff appreciate your assistance in clarifying documentation. Please respond to the clarification below the line at the bottom and electronically sign. The CDI & [facility] Coding staff will review the response and follow-up if needed. Please note: Queries are made part of the Legal Health Record. If you have any questions, please contact the author of this message via ITS. Dr. Miroslava Carlson Your patient has the documented diagnosis of unspecified Heart Failure 07/17, Medicine progress note. Additional information regarding the type, acuity of Heart Failure is requested. History/Risk Factors: 69-year-old female presents to the ED with right upper and lower quadrant abdominal pain. Medical History: HTN & GERD. 07/10, Medicine Consult Clinical Indicators: VS/Pulse OX: 07/17 B/P 181/83, HR 79, Temp 98.9, RR 18, SpO2 98% ra Echocardiogram Results:07/11 EF 50-55% Mild mitral regurgitation, mild tricuspid regurgitation, no pericardial effusion. CT 07/16: Lung Bases - Small to Moderate sized bilateral pleural effusions with associated compressive atelectasis are increased in size from prior CT. Medicine Progress Note 07/17: Patient is also found to have dzmf-yc-[id number] pleural effusions on the CAT scan of the chest may be heart failure exacerbation R May be related to pancreatitis itself patient will be given a dose of Lasix and will be discharged on low-dose of Lasix along with potassium supplementation. Treatment: 07/11 07/12 Lopressor 25mg TID; 07/12 Lopressor 25mg PO x 1; 07/12 07/13 Lopressor 50mg PO BID; 07/13 07/14 Lopressor 50mg PO BID; 07/15 07/17 Lopressor 100mg PO BID; 07/17 to current Lasix 40mg IV Q12HR. In your professional opinion, can you please clarify the acuity and type of Heart Failure if known? [ ] Acute Diastolic Heart Failure (preserved EF) [ x ] Acute on Chronic Diastolic Heart Failure (preserved EF) [ ] Other, please specify [ ] Unable to determine (Template Last Revised: July 2020) MTDD
== END 2021-07-17 15:55 | disposition home or self-care (01) | DRG 420 ==
LOC: EC 10:53 → 4SSUR 13:10 → 5NMEDONC 13:57 → 3SCARD 07-11 14:56
PROVIDERS: ADMIT Surgery; ATTEND Surgery
PROC: 0WJG4ZZ Inspection of Peritoneal Cavity, Percutaneous Endoscopic Approach (ICD-10-PCS; principal; 2021-07-15 07:40)
DX: K81.9 Cholecystitis, unspecified (principal); K85.91 Acute pancreatitis with uninfected necrosis, unspecified; I50.33 Acute on chronic diastolic (congestive) heart failure; E87.1 Hypo-osmolality and hyponatremia; J90 Pleural effusion, not elsewhere classified; I13.0 Hypertensive heart and chronic kidney disease with heart failure and stage 1 through stage 4 chronic kidney disease, or unspecified chronic kidney disease; Z20.822 Contact with and (suspected) exposure to COVID-19; I48.0 Paroxysmal atrial fibrillation; E86.1 Hypovolemia; Z53.8 Procedure and treatment not carried out for other reasons; K21.00 Gastro-esophageal reflux disease with esophagitis, without bleeding; K29.70 Gastritis, unspecified, without bleeding; N18.30 Chronic kidney disease, stage 3 unspecified; E87.70 Fluid overload, unspecified; Z87.891 Personal history of nicotine dependence; Z79.899 Other long term (current) drug therapy; Z87.19 Personal history of other diseases of the digestive system; Z82.49 Family history of ischemic heart disease and other diseases of the circulatory system; Z83.3 Family history of diabetes mellitus
CPT/HCPCS: 36415; 74177; 76700; 80048; 80053; 81001; 82150; 83605; 83690; 84132; 84443; 85025; 85027; 85610; 85730; 86850; 86900; 86901; 87635; 93005; 93306; 96360; 99284

== ENCOUNTER → 2021-08-13 | Outpatient (CLI) | payer MEDICARE ==
--- NOTE | 2021-08-13 20:46 | CT ---
EXAMINATION TYPE: CT abdomen pelvis w con DATE OF EXAM: 08/13/2021 COMPARISON: CT dated 07/16/2021 HISTORY: abdominal pain, pancreatitis CT DLP: 1555 mGycm Automated exposure control for dose reduction was used. TECHNIQUE: Helical acquisition of images was performed from the lung bases through the pelvis. CONTRAST: Performed with Oral Contrast and with IV Contrast, patient injected with 100 mL of Isovue 300. FINDINGS: Previous acute pancreatitis. The previously seen heterogeneous multicompartment collection with khadra nal enhancement centered over the pancreatic head and proximal body with extrapancreatic extension on the right side is smaller and more organized today, measuring 5.4 x 10.7 cm compared to 7.2 x 15.2 c m previously, likely representing an evolving walled off necrosis. Another collection is seen arising from the superior aspect of the distal pancreatic body and inseparable superiorly from the stomach, posteriorly from the diaphragmatic steff and spleen, measuring 4.5 x 6.2 cm, apparently more organized today. This could progressed to fistula with the stomach. Both collections demonstrate air within, underlying infection cannot be excluded. Soft tissue thicken ing and desmoplastic reaction are seen in the mid abdomen adjacent to the large collection. Attenuate d caliber of the splenic vein mainly its medial aspect yet still patent. The splenic artery is still enhancing. Markedly attenuated caliber of the most superior aspect of the superior mesenteric vein ye t enhancing more inferiorly. Significant wall thickening of the gastric pylorus and proximal duodenum which also appear inseparable from the large collection. Mild central intrahepatic biliary dilatatio n with slightly prominent CBD. The pancreatic tail demonstrates mild surrounding fat stranding and so ft tissue thickening with minimal elongated collection inferiorly. No hepatic focal lesion. Slightly thickened gallbladder wall, possibly reactive. Unremarkable spleen, adrenals and right kidney. Cyst is seen at the lower pole of the left kidney. Scattered arterial ath erosclerotic calcifications. Unremarkable urinary bladder. Retroflexed uterus with slightly thickened endometrium measuring 10 mm, for correlation with pelvic ultrasound results. No gross adnexal mass. Small collection and soft tissue thickening are seen at the medial aspect of the ascending colon and cecum, possibly involving the appendix/ileocecal junction. No evidence of small bowel obstruction. Wa ll thickening of the colonic splenic flexure, likely reactive. Improvement of the previously seen per itoneal fat stranding and peritoneal reflection thickening in the upper abdomen yet still appreciated . No suspicious lymphadenopathy or sizable ascites. Small right-sided and moderate left-sided pleural effusions with left subsegmental pulmonary atelectasis. Degenerative changes of the lumbar spine. No aggressive bone lesion. IMPRESSION: Severe sequela of previous acute pancreatitis with residual collections, soft tissue thickening and v ascular changes demonstrating more organization as detailed above. Associated infection in the air-co ntaining collections cannot be excluded. Recommend surgical consultation and follow-up. Other interva l changes and incidental findings with recommendations as detailed above.
== END | disposition home or self-care (01) ==
LOC: RADCTMAIN 12:49
PROVIDERS: ATTEND Surgery
DX: K85.90 Acute pancreatitis without necrosis or infection, unspecified (principal); N28.1 Cyst of kidney, acquired; I70.90 Unspecified atherosclerosis; R93.89 Abnormal findings on diagnostic imaging of other specified body structures; J90 Pleural effusion, not elsewhere classified; J98.11 Atelectasis; M47.816 Spondylosis without myelopathy or radiculopathy, lumbar region
CPT/HCPCS: 82565; 84520; 74177; 36415; Q9967

== ENCOUNTER → 2021-09-18 | Outpatient (CLI) | payer MEDICARE ==
[2021-09-18 18:07] LABS: INR >9.00 (0.90-1.11); Prothrombin Time >90.0 sec (9.9-11.9)
== END | disposition home or self-care (01) ==
LOC: LABWHC1 10:11
PROVIDERS: ATTEND Internal Medicine Interventional Cardiology
DX: I48.0 Paroxysmal atrial fibrillation (principal)
CPT/HCPCS: 36415; 85610

== ENCOUNTER 2024-03-03 07:59 | Day surgery (SDC) | payer MEDICARE ==
[2024-03-03 08:29] VITALS: TEMP 97
[2024-03-03] MEDS: IV FLUID CONTINUATION 1,000 ML IV ONE (08:37)
[2024-03-03] MEDS: LACTATED RINGERS 1,000 ML IV SCH (08:38)
[2024-03-03 08:40] LABS: Glucose,Whole Blood 115 mg/dL (70-110)
[2024-03-03] MEDS ORDERED: PROPOFOL 10 MG/ML 20 ML VIAL IV ONE (09:07)
--- NOTE | 2024-03-03 09:25 | P.PCN ---
Date of Procedure: 03/03/24 Procedure(s) Performed: BRIEF HISTORY: Patient is a 68-year-old pleasant white female scheduled for an elective colonoscopy as a part of screening for colon cancer and by history of colon polyps PROCEDURE PERFORMED: Colonoscopy polypectomy. PREOPERATIVE DIAGNOSIS: Screening for colon cancer. IV sedation per Anesthesia. PROCEDURE: After informed consent was obtained, the patient, was brought into the endoscopy unit. IV sedation was administered by Anesthesia under continuous monitoring. Digital rectal examination was normal. Initially the Olympus CF-160 flexible video colonoscope was then inserted in the rectum, gradually advanced into the cecum without any difficulty. Careful examination was performed as the scope was gradually being withdrawn. Ileocecal valve and the appendiceal orifice were visualized and appeared normal. Prep was excellent. Mucosa of the cecum had a 1 cm broad-based polyp removed by snare polypectomy. Rest of the, ascending colon, transverse colon, descending colon, sigmoid colon, and rectum appeared normal. Retroflexion was performed in the rectum and no lesions were seen. The patient tolerated the procedure well. IMPRESSION: 1 cm broad-based cecal polyp status post snare polypectomy Rest of the colon appeared normal RECOMMENDATIONS: Findings of this examination were discussed with the patient as well as the family.. She was advised to follow-up with the biopsy results. If the biopsy reveals adenoma she can have repeat colonoscopy in 3 years.
[2024-03-03 09:41] VITALS: BP 109/58; PULSE 68; RESP 16
== END 2024-03-03 09:56 | disposition home or self-care (01) ==
LOC: ORWHC2ENDO 07:59
PROVIDERS: ATTEND Internal Medicine Gastroenterology
DX: Z12.11 Encounter for screening for malignant neoplasm of colon (principal); D12.0 Benign neoplasm of cecum; I48.91 Unspecified atrial fibrillation; I10 Essential (primary) hypertension; E11.9 Type 2 diabetes mellitus without complications; K21.9 Gastro-esophageal reflux disease without esophagitis; Z79.84 Long term (current) use of oral hypoglycemic drugs; Z86.010 Personal history of colon polyps; Z79.899 Other long term (current) drug therapy; Z79.01 Long term (current) use of anticoagulants; Z90.49 Acquired absence of other specified parts of digestive tract
CPT/HCPCS: 88305; 45385; J2704